=== PATIENT | male | born 1935 | race Caucasian/White ===

== ENCOUNTER 2022-05-24 14:54 | Inpatient (IN) | payer MEDICARE, SELFPAY ==
--- NOTE | ~2022-05-24 | CT_ITS ---
EXAMINATION: CT ABDOMEN AND PELVIS WITH CONTRAST CLINICAL INFORMATION: Diffuse abdominal pain COMPARISON: None available. TECHNIQUE: Multidetector volumetric images were obtained from the superior aspect of the liver through the pubic symphysis following administration 85 mL of Omnipaque 350 intravenous contrast. Sagittal and coronal reformatted images were obtained on the technologist's workstation. Oral contrast: No This CT examination was performed using dose optimization techniques as appropriate, variously including the following: *Automated exposure control *Adjustment of mA and/or kV according to patient size (this includes techniques or standardized protocols for targeted exams where dose is matched to indication/reason for exam; i.e. extremities or head) *Use of iterative reconstruction technique DLP: 1466 mGy-cm FINDINGS: LUNG BASES: The lung bases are grossly abnormal with peripheral groundglass changes and some honeycombing suggestive of interstitial lung disease. No pleural effusions. Extensive coronary calcification is present. Heart size is normal. Left hemidiaphragm is mildly elevated LIVER, GALLBLADDER, AND BILIARY TREE: The liver is normal in size, shape, and attenuation. No focal hepatic lesion or biliary ductal dilatation is present. The gallbladder is unremarkable with no evidence of radiopaque gallstones, gallbladder wall thickening, or obvious pericholecystic inflammatory changes. PANCREAS: Unremarkable. SPLEEN: Unremarkable. ADRENAL GLANDS: Unremarkable. KIDNEYS AND URETERS: The kidneys are normal in size, shape, and attenuation. A benign bilateral Bosniak class I renal cysts are present which need no additional imaging or follow-up. No solid renal masses. No hydronephrosis, hydroureter, or calculi seen. No perinephric stranding. BLADDER: A 1 cm stone is present posteriorly in the bladder which measures 1100 Hounsfield units there is marked impression of the bladder base by the enlarged prostate (see below). GASTROINTESTINAL TRACT: A small hiatal hernia is present. The small and large bowel are unremarkable. The appendix is unremarkable. ABDOMINAL WALL: Small bilateral inguinal hernias present containing only fat. No other hernias are seen. LYMPH NODES: No retroperitoneal lymphadenopathy. VASCULAR: Marked calcific atherosclerotic change present in the aorta and iliofemoral vessels without aneurysms PELVIC VISCERA: The prostate is massive in size measuring 7.1 x 8.1 x 9.3 cm for a volume of approximately 300 mL. OSSEOUS STRUCTURES: Marked degenerative changes are present throughout the spine. No bony destructive lesions. CT/CT abdomen pelvis w IV con IMPRESSION: 1. A cause for the patient's diffuse abdominal pain has not been found. 2. Markedly enlarged prostate with a volume of approximately 300 mL. 3. 1 cm stone in the bladder. 4. Incidental note made of probable interstitial lung disease at the lung bases, extensive coronary calcifications, small hiatal hernia, small bilateral inguinal hernias containing only fat and marked degenerative changes in the spine. Fleischner guidelines were followed.
--- NOTE | ~2022-05-24 | XR_ITS ---
EXAMINATION: XR CHEST CLINICAL INFORMATION: Question pneumonia. Weakness. COMPARISON: 01/12/2012 TECHNIQUE: AP portable view of the chest was obtained. FINDINGS: There is diffuse bilateral interstitial and airspace disease with some regions of interstitial lung disease appearing to be chronic however, there does appear to be some superimposed interstitial and airspace disease which is acute. No pneumothorax or significant pleural effusion. Heart normal size. No evidence of definite airspace edema. XR/XR chest 1V IMPRESSION: Interstitial and airspace disease some of which appears to be chronic however, there does appear to be some superimposed disease present as well.
--- NOTE | ~2022-05-24 | CT_ITS ---
EXAMINATION: CT HEAD WITHOUT CONTRAST CLINICAL INFORMATION: Dizziness. COMPARISON: None. TECHNIQUE: Contiguous axial imaging was performed from the skull base to vertex without intravenous administration of contrast. This CT examination was performed using dose optimization techniques as appropriate, variously including the following: *Automated exposure control *Adjustment of mA and/or kV according to patient size (this includes techniques or standardized protocols for targeted exams where dose is matched to indication/reason for exam; i.e. extremities or head) *Use of iterative reconstruction technique DLP: 2199 mGy-cm. FINDINGS: There is no intracranial hemorrhage, extra-axial collection, mass effect, or territorial infarction. There is mild hypoattenuation in the white matter likely representing chronic microangiopathy. The ventricles are normal in size without hydrocephalus. Right-sided mastoidectomy changes are noted with mild soft tissue thickening the mastoidectomy bowl. Small amount of middle ear opacification is also noted on the right. CT/CT head/brain wo IV con IMPRESSION: No acute intracranial abnormality.
--- NOTE | 2022-05-24 15:13 | ED_ITS ---
HPI - Abdominal Pain General Chief Complaint: Abdominal Pain <SHEA Ayon - Last Filed: 05/24/22 15:17> Stated Complaint: Abd pain/Not eating or sleeping/Weakness <SHEA Ayon - Last Filed: 05/24/22 15:17> Time Seen by Provider: 05/24/22 19:06 <SHEA Ayon - Last Filed: 05/24/22 15:17> Source: patient and family (Son) <Kendra Mcduffie MD - Last Filed: 05/24/22 22:38> Mode of arrival: ambulatory <Kendra Mcduffie MD - Last Filed: 05/24/22 22:38> History of Present Illness HPI narrative: 87-year-old male not on any prescription medications is brought in with his son from home where he lives by himself and the son states that he called his father on Monday and at that time he had reported that he was feeling weak and then the patient himself states that he began having abdominal discomfort 2 days ago without fever, chills, nausea, vomiting, he denies any intra-abdominal surgeries and denies any diarrhea or constipation. Patient does report he has had difficulty urinating. The son who is at bedside states that his father is usually able to walk around without difficulty using his walker but states he can not even get out of his chair at this point . <Kendra Mcduffie MD - Last Filed: 05/24/22 22:38> Related Data Allergies/Adverse Reactions: Allergies Allergy/AdvReac Type Severity Reaction Status Date / Time No Known Allergies Allergy Mild NONE Verified 05/24/22 15:15 <SHEA Ayon - Last Filed: 05/24/22 15:17> Review of Systems Review of Systems Pertinent positives and negatives as stated in HPI <Kendra Mcduffie MD - Last Filed: 05/24/22 22:38> PMFSH Past Medical History Source: nursing notes reviewed <Kendra Mcduffie MD - Last Filed: 05/24/22 22:38> Social History Social History: Social History Smoked in Last 30 Days: No Use of substances other than those prescribed or required for medical reasons: No Advance Directives: No Advance Directives Information Provided: No <SHEA Ayon - Last Filed: 05/24/22 15:17> Physical Exam ED Vital Signs: Vital Signs - 24 hr 05/24/22 15:16 05/24/22 18:45 05/24/22 21:04 Temperature 96 F L 96 F L 97.1 F Pulse Rate 69 67 62 Respiratory Rate 19 20 16 Blood Pressure 137/49 L 165/82 H 159/67 H Pulse Oximetry 98 99 98 Oxygen Delivery Method Room Air Room Air BMI result Body Mass Index 30.4 <SHEA Ayon - Last Filed: 05/24/22 15:17> Vital Signs - 24 hr 05/24/22 15:16 05/24/22 18:45 05/24/22 21:04 Temperature 96 F L 96 F L 97.1 F Pulse Rate 69 67 62 Respiratory Rate 19 20 16 Blood Pressure 137/49 L 165/82 H 159/67 H Pulse Oximetry 98 99 98 Oxygen Delivery Method Room Air Room Air BMI result Body Mass Index 30.4 VITAL SIGNS: Reviewed. GENERAL: Well developed, well nourished, in no acute distress. HEAD: Normocephalic/atraumatic EYES: PERRLA, EOMI EARS: Ext canals without abnormality NOSE: Nares patent bilateral OROPHARYNX: no oral lesions noted, posterior pharynx clear NECK: Supple, no adenopathy LUNGS: Bibasilar rales without tachypnea, no crackles. SpO2<99> CARDIOVASCULAR: Regular rate and rhythm without noted murmurs, no JVD or mild bilateral lower extremity ankle edema ABDOMEN: Soft, mid abdominal discomfort on palpation, non-distended with hypoactive bowel sounds. MUSCULOSKELETAL: No tenderness, deformities, or effusions noted on gross inspection. EXTREMITIES: No cyanosis, clubbing or edema. SKIN: Inspection of the skin reveals no rashes NEUROLOGIC: Alert and oriented x 4. Strength and sensation to light touch were grossly intact x 4. <Kendra Mcduffie MD - Last Filed: 05/24/22 22:38> Course Course Course Narrative: This is an RME: Additional HPI, ROS, PE not included below will be deferred to primary provider. 87-year-old male presents with complaints of diffuse abdominal pain, fatigue, malaise, myalgias, lightheadedness since this weekend, abdominal pain worsened since yesterday. Is accompanied by son however, patient lives at home by himself. No sick contacts. Denies chest pain, shortness of breath, vision changes, dizziness, weakness, and recent falls. Physical exam global weakness, diffuse abdominal discomfort. Vital signs stable. Patient well appearing. Plan labs, urine, imaging. <SHEA Ayon - Last Filed: 05/24/22 15:17> Medical Decision Making Medical Decision Making [facility] Narrative: 2023: 87-year-old male with history and clinical presentation after review of investigations I suspect patient may have urinary retention with secondary infection. Review of all investigations my interpretation is as patient has acute urinary retention with significant UTI and will receive Cotton catheter/antibiotics/fluids and be admitted. <Kendra Mcduffie MD - Last Filed: 05/24/22 22:38> Differential Diagnosis Please see the discussion above <Kendra Mcduffie MD - Last Filed: 05/24/22 22:38> Consult Healthcare Provider [id number]: I discussed case with inpatient hospitalist who accepts admission. <Kendra Mcduffie MD - Last Filed: 05/24/22 22:38> Lab Data Please see the discussion above <Kendra Mcduffie MD - Last Filed: 05/24/22 22:38> Result Diagrams: 05/24/22 16:25 05/24/22 16:25 <SHEA Ayon - Last Filed: 05/24/22 15:17> Labs: Lab Results 05/24/22 05/24/22 05/24/22 Range/Units 16:25 16:25 16:25 WBC 18.1 H (4.8-10.8) X10*3/uL RBC 5.03 (4.60-5.80) X10*6/uL Hgb 14.2 (14.0-18.0) g/dl Hct 43.4 (42.0-52.0) % MCV 86.3 (80.0-98.0) fL MCH 28.2 (27.0-33.0) pg MCHC 32.7 (31.0-36.0) g/dl RDW 14.6 (11.0-16.0) % Plt Count 325 (160-400) X10*3/uL MPV 10.1 (9.4-12.4) fL Immature Gran % (Auto) 0.3 (0.0-0.4) % Neut % (Auto) 89.0 H (45-73) % Lymph % (Auto) 4.0 L (20-40) % Blanco % (Auto) 6.6 (2-11) % Eos % (Auto) 0.0 (0-4) % Baso % (Auto) 0.1 (0-2) % Lymph # (Auto) 0.7 L (1.2-4.9) X10*3/uL [place] # (Auto) 1.2 (0.1-1.2) X10*3/uL Eos # (Auto) 0.0 (0.0-0.4) X10*3/uL Baso # (Auto) 0.0 (0.0-0.2) X10*3/uL Abs Immat Gran (auto) 0.05 H (0.00-0.03) X10*3/uL Absolute Neuts (auto) 16.2 H (2.0-8.3) x10*3/uL Absolute Nucleated RBC 0.000 (0.0-0.012) X10*3/uL Nucleated RBC % (auto) 0.0 (0.0-0.2) /100WBC Sodium 142 (135-145) mmol/L Potassium 4.9 (3.3-5.1) mmol/L Chloride 107 (96-108) mmol/L Carbon Dioxide 23 (22-29) mmol/L Anion Gap 17 (12-20) BUN 17 H (9-16) mg/dL Creatinine 0.90 (0.5-1.4) mg/dL Estim Creat Clear Calc 79.6 Estimated GFR > 60 Random Glucose 121 H (60-115) mg/dL Lactic Acid (0.5-2.0) mmol/L Calcium 9.9 (8.4-10.2) mg/dL Magnesium 1.9 (1.6-2.6) mg/dL Total Bilirubin 0.5 (0.0-1.0) mg/dL AST 38 H (5-37) U/L ALT 32 (0-40) U/L Alkaline Phosphatase 153 H (39-117) U/L B-Natriuretic Peptide Total Protein 6.9 (6.5-8.0) g/dL Albumin 3.8 (3.5-5.0) g/dL Lipase 18 (8-78) U/L Urine Color Urine Appearance Urine pH (5.0-9.0) Ur Specific [place] (1.005-1.025) Urine Protein (Neg-Trace) mg/dL Urine Glucose (UA) (Negative) mg/dL Urine Ketones (Negative) mg/dL Urine Blood (Negative) Urine Nitrite (Negative) Ur Leukocyte Esterase (Negative) Urine RBC (0-2) /HPF Urine WBC (0-5) /HPF Ur Squamous Epith Cells (0-2) /HPF Urine Bacteria (None Seen) Hyaline Casts (0-2) /LPF COVID-19 ([facility]) Negative (Negative) COVID-19 Clin Com See Note 05/24/22 05/24/22 05/24/22 Range/Units 16:25 20:44 21:29 WBC (4.8-10.8) X10*3/uL RBC (4.60-5.80) X10*6/uL Hgb (14.0-18.0) g/dl Hct (42.0-52.0) % MCV (80.0-98.0) fL MCH (27.0-33.0) pg MCHC (31.0-36.0) g/dl RDW (11.0-16.0) % Plt Count (160-400) X10*3/uL MPV (9.4-12.4) fL Immature Gran % (Auto) (0.0-0.4) % Neut % (Auto) (45-73) % Lymph % (Auto) (20-40) % Blanco % (Auto) (2-11) % Eos % (Auto) (0-4) % Baso % (Auto) (0-2) % Lymph # (Auto) (1.2-4.9) X10*3/uL [place] # (Auto) (0.1-1.2) X10*3/uL Eos # (Auto) (0.0-0.4) X10*3/uL Baso # (Auto) (0.0-0.2) X10*3/uL Abs Immat Gran (auto) (0.00-0.03) X10*3/uL Absolute Neuts (auto) (2.0-8.3) x10*3/uL Absolute Nucleated RBC (0.0-0.012) X10*3/uL Nucleated RBC % (auto) (0.0-0.2) /100WBC Sodium (135-145) mmol/L Potassium (3.3-5.1) mmol/L Chloride (96-108) mmol/L Carbon Dioxide (22-29) mmol/L Anion Gap (12-20) BUN (9-16) mg/dL Creatinine (0.5-1.4) mg/dL Estim Creat Clear Calc Estimated GFR Random Glucose (60-115) mg/dL Lactic Acid 2.3 H* (0.5-2.0) mmol/L Calcium (8.4-10.2) mg/dL Magnesium (1.6-2.6) mg/dL Total Bilirubin (0.0-1.0) mg/dL AST (5-37) U/L ALT (0-40) U/L Alkaline Phosphatase (39-117) U/L B-Natriuretic Peptide Cancelled 86 Total Protein (6.5-8.0) g/dL Albumin (3.5-5.0) g/dL Lipase (8-78) U/L Urine Color Urine Appearance Urine pH (5.0-9.0) Ur Specific [place] (1.005-1.025) Urine Protein (Neg-Trace) mg/dL Urine Glucose (UA) (Negative) mg/dL Urine Ketones (Negative) mg/dL Urine Blood (Negative) Urine Nitrite (Negative) Ur Leukocyte Esterase (Negative) Urine RBC (0-2) /HPF Urine WBC (0-5) /HPF Ur Squamous Epith Cells (0-2) /HPF Urine Bacteria (None Seen) Hyaline Casts (0-2) /LPF COVID-19 ([facility]) (Negative) COVID-19 Clin Com 05/24/22 Range/Units 21:34 WBC (4.8-10.8) X10*3/uL RBC (4.60-5.80) X10*6/uL Hgb (14.0-18.0) g/dl Hct (42.0-52.0) % MCV (80.0-98.0) fL MCH (27.0-33.0) pg MCHC (31.0-36.0) g/dl RDW (11.0-16.0) % Plt Count (160-400) X10*3/uL MPV (9.4-12.4) fL Immature Gran % (Auto) (0.0-0.4) % Neut % (Auto) (45-73) % Lymph % (Auto) (20-40) % Blanco % (Auto) (2-11) % Eos % (Auto) (0-4) % Baso % (Auto) (0-2) % Lymph # (Auto) (1.2-4.9) X10*3/uL [place] # (Auto) (0.1-1.2) X10*3/uL Eos # (Auto) (0.0-0.4) X10*3/uL Baso # (Auto) (0.0-0.2) X10*3/uL Abs Immat Gran (auto) (0.00-0.03) X10*3/uL Absolute Neuts (auto) (2.0-8.3) x10*3/uL Absolute Nucleated RBC (0.0-0.012) X10*3/uL Nucleated RBC % (auto) (0.0-0.2) /100WBC Sodium (135-145) mmol/L Potassium (3.3-5.1) mmol/L Chloride (96-108) mmol/L Carbon Dioxide (22-29) mmol/L Anion Gap (12-20) BUN (9-16) mg/dL Creatinine (0.5-1.4) mg/dL Estim Creat Clear Calc Estimated GFR Random Glucose (60-115) mg/dL Lactic Acid (0.5-2.0) mmol/L Calcium (8.4-10.2) mg/dL Magnesium (1.6-2.6) mg/dL Total Bilirubin (0.0-1.0) mg/dL AST (5-37) U/L ALT (0-40) U/L Alkaline Phosphatase (39-117) U/L B-Natriuretic Peptide Total Protein (6.5-8.0) g/dL Albumin (3.5-5.0) g/dL Lipase (8-78) U/L Urine Color RED Urine Appearance Turbid Urine pH 5.5 (5.0-9.0) Ur Specific [place] 1.020 (1.005-1.025) Urine Protein 100 (2+) H (Neg-Trace) mg/dL Urine Glucose (UA) Negative (Negative) mg/dL Urine Ketones Negative (Negative) mg/dL Urine Blood Large (3+) H (Negative) Urine Nitrite Positive H (Negative) Ur Leukocyte Esterase Moderate (2+) H (Negative) Urine RBC >20 H (0-2) /HPF Urine WBC >50 H (0-5) /HPF Ur Squamous Epith Cells 0-2 (0-2) /HPF Urine Bacteria Trace (None Seen) Hyaline Casts 0-2 (0-2) /LPF COVID-19 ([facility]) (Negative) COVID-19 Clin Com <SHEA Ayon - Last Filed: 05/24/22 15:17> Lab Results 05/24/22 05/24/22 05/24/22 Range/Units 16:25 16:25 16:25 WBC 18.1 H (4.8-10.8) X10*3/uL RBC 5.03 (4.60-5.80) X10*6/uL Hgb 14.2 (14.0-18.0) g/dl Hct 43.4 (42.0-52.0) % MCV 86.3 (80.0-98.0) fL MCH 28.2 (27.0-33.0) pg MCHC 32.7 (31.0-36.0) g/dl RDW 14.6 (11.0-16.0) % Plt Count 325 (160-400) X10*3/uL MPV 10.1 (9.4-12.4) fL Immature Gran % (Auto) 0.3 (0.0-0.4) % Neut % (Auto) 89.0 H (45-73) % Lymph % (Auto) 4.0 L (20-40) % Blanco % (Auto) 6.6 (2-11) % Eos % (Auto) 0.0 (0-4) % Baso % (Auto) 0.1 (0-2) % Lymph # (Auto) 0.7 L (1.2-4.9) X10*3/uL Blanco # (Auto) 1.2 (0.1-1.2) X10*3/uL Eos # (Auto) 0.0 (0.0-0.4) X10*3/uL Baso # (Auto) 0.0 (0.0-0.2) X10*3/uL Abs Immat Gran (auto) 0.05 H (0.00-0.03) X10*3/uL Absolute Neuts (auto) 16.2 H (2.0-8.3) x10*3/uL Absolute Nucleated RBC 0.000 (0.0-0.012) X10*3/uL Nucleated RBC % (auto) 0.0 (0.0-0.2) /100WBC Sodium 142 (135-145) mmol/L Potassium 4.9 (3.3-5.1) mmol/L Chloride 107 (96-108) mmol/L Carbon Dioxide 23 (22-29) mmol/L Anion Gap 17 (12-20) BUN 17 H (9-16) mg/dL Creatinine 0.90 (0.5-1.4) mg/dL Estim Creat Clear Calc 79.6 Estimated GFR > 60 Random Glucose 121 H (60-115) mg/dL Lactic Acid (0.5-2.0) mmol/L Calcium 9.9 (8.4-10.2) mg/dL Magnesium 1.9 (1.6-2.6) mg/dL Total Bilirubin 0.5 (0.0-1.0) mg/dL AST 38 H (5-37) U/L ALT 32 (0-40) U/L Alkaline Phosphatase 153 H (39-117) U/L B-Natriuretic Peptide Total Protein 6.9 (6.5-8.0) g/dL Albumin 3.8 (3.5-5.0) g/dL Lipase 18 (8-78) U/L Urine Color Urine Appearance Urine pH (5.0-9.0) Ur Specific [place] (1.005-1.025) Urine Protein (Neg-Trace) mg/dL Urine Glucose (UA) (Negative) mg/dL Urine Ketones (Negative) mg/dL Urine Blood (Negative) Urine Nitrite (Negative) Ur Leukocyte Esterase (Negative) Urine RBC (0-2) /HPF Urine WBC (0-5) /HPF Ur Squamous Epith Cells (0-2) /HPF Urine Bacteria (None Seen) Hyaline Casts (0-2) /LPF COVID-19 ([facility]) Negative (Negative) COVID-19 Clin Com See Note 05/24/22 05/24/22 05/24/22 Range/Units 16:25 20:44 21:29 WBC (4.8-10.8) X10*3/uL RBC (4.60-5.80) X10*6/uL Hgb (14.0-18.0) g/dl Hct (42.0-52.0) % MCV (80.0-98.0) fL MCH (27.0-33.0) pg MCHC (31.0-36.0) g/dl RDW (11.0-16.0) % Plt Count (160-400) X10*3/uL MPV (9.4-12.4) fL Immature Gran % (Auto) (0.0-0.4) % Neut % (Auto) (45-73) % Lymph % (Auto) (20-40) % [place]anco % (Auto) (2-11) % Eos % (Auto) (0-4) % Baso % (Auto) (0-2) % Lymph # (Auto) (1.2-4.9) X10*3/uL [place] # (Auto) (0.1-1.2) X10*3/uL Eos # (Auto) (0.0-0.4) X10*3/uL Baso # (Auto) (0.0-0.2) X10*3/uL Abs Immat Gran (auto) (0.00-0.03) X10*3/uL Absolute Neuts (auto) (2.0-8.3) x10*3/uL Absolute Nucleated RBC (0.0-0.012) X10*3/uL Nucleated RBC % (auto) (0.0-0.2) /100WBC Sodium (135-145) mmol/L Potassium (3.3-5.1) mmol/L Chloride (96-108) mmol/L Carbon Dioxide (22-29) mmol/L Anion Gap (12-20) BUN (9-16) mg/dL Creatinine (0.5-1.4) mg/dL Estim Creat Clear Calc Estimated GFR Random Glucose (60-115) mg/dL Lactic Acid 2.3 H* (0.5-2.0) mmol/L Calcium (8.4-10.2) mg/dL Magnesium (1.6-2.6) mg/dL Total Bilirubin (0.0-1.0) mg/dL AST (5-37) U/L ALT (0-40) U/L Alkaline Phosphatase (39-117) U/L B-Natriuretic Peptide Cancelled 86 Total Protein (6.5-8.0) g/dL Albumin (3.5-5.0) g/dL Lipase (8-78) U/L Urine Color Urine Appearance Urine pH (5.0-9.0) Ur Specific [place] (1.005-1.025) Urine Protein (Neg-Trace) mg/dL Urine Glucose (UA) (Negative) mg/dL Urine Ketones (Negative) mg/dL Urine Blood (Negative) Urine Nitrite (Negative) Ur Leukocyte Esterase (Negative) Urine RBC (0-2) /HPF Urine WBC (0-5) /HPF Ur Squamous Epith Cells (0-2) /HPF Urine Bacteria (None Seen) Hyaline Casts (0-2) /LPF COVID-19 ([facility]) (Negative) COVID-19 Clin Com 05/24/22 Range/Units 21:34 WBC (4.8-10.8) X10*3/uL RBC (4.60-5.80) X10*6/uL Hgb (14.0-18.0) g/dl Hct (42.0-52.0) % MCV (80.0-98.0) fL MCH (27.0-33.0) pg MCHC (31.0-36.0) g/dl RDW (11.0-16.0) % Plt Count (160-400) X10*3/uL MPV (9.4-12.4) fL Immature Gran % (Auto) (0.0-0.4) % Neut % (Auto) (45-73) % Lymph % (Auto) (20-40) % [place] % (Auto) (2-11) % Eos % (Auto) (0-4) % Baso % (Auto) (0-2) % Lymph # (Auto) (1.2-4.9) X10*3/uL [place] # (Auto) (0.1-1.2) X10*3/uL Eos # (Auto) (0.0-0.4) X10*3/uL Baso # (Auto) (0.0-0.2) X10*3/uL Abs Immat Gran (auto) (0.00-0.03) X10*3/uL Absolute Neuts (auto) (2.0-8.3) x10*3/uL Absolute Nucleated RBC (0.0-0.012) X10*3/uL Nucleated RBC % (auto) (0.0-0.2) /100WBC Sodium (135-145) mmol/L Potassium (3.3-5.1) mmol/L Chloride (96-108) mmol/L Carbon Dioxide (22-29) mmol/L Anion Gap (12-20) BUN (9-16) mg/dL Creatinine (0.5-1.4) mg/dL Estim Creat Clear Calc Estimated GFR Random Glucose (60-115) mg/dL Lactic Acid (0.5-2.0) mmol/L Calcium (8.4-10.2) mg/dL Magnesium (1.6-2.6) mg/dL Total Bilirubin (0.0-1.0) mg/dL AST (5-37) U/L ALT (0-40) U/L Alkaline Phosphatase (39-117) U/L B-Natriuretic Peptide Total Protein (6.5-8.0) g/dL Albumin (3.5-5.0) g/dL Lipase (8-78) U/L Urine Color RED Urine Appearance Turbid Urine pH 5.5 (5.0-9.0) Ur Specific [place] 1.020 (1.005-1.025) Urine Protein 100 (2+) H (Neg-Trace) mg/dL Urine Glucose (UA) Negative (Negative) mg/dL Urine Ketones Negative (Negative) mg/dL Urine Blood Large (3+) H (Negative) Urine Nitrite Positive H (Negative) Ur Leukocyte Esterase Moderate (2+) H (Negative) Urine RBC >20 H (0-2) /HPF Urine WBC >50 H (0-5) /HPF Ur Squamous Epith Cells 0-2 (0-2) /HPF Urine Bacteria Trace (None Seen) Hyaline Casts 0-2 (0-2) /LPF COVID-19 ([facility]) (Negative) COVID-19 Clin Com <Kendra Mcduffie MD - Last Filed: 05/24/22 22:38> Radiology Impression Radiologist Impression: My interpretation is in agreement with radiology's impression of the imaging studies. <Kendra Mcduffie MD - Last Filed: 05/24/22 22:38> External Record Review External record reviewed: Outpatient record and Prior outpatient labs <Kendra Mcduffie MD - Last Filed: 05/24/22 22:38> Medications Administered Discontinued Medications Generic Name Dose Route Start Last Admin Trade Name Freq PRN Reason Stop Dose Admin Ceftriaxone Sodium 2 gm/ 50 mls @ 100 mls/hr 05/24/22 20:26 05/24/22 21:44 Sodium Chloride IV 05/24/22 20:55 100 mls/hr ONCE ONE Administration Iohexol 85 ml 05/24/22 19:42 05/24/22 19:43 Iohexol 350 Mg/Ml 100 Ml Infus..Btl IV 05/24/22 19:43 85 ml ONCE ONE Administration <SHEA Ayon - Last Filed: 05/24/22 15:17> Medications Administered Discontinued Medications Generic Name Dose Route Start Last Admin Trade Name Freq PRN Reason Stop Dose Admin Ceftriaxone Sodium 2 gm/ 50 mls @ 100 mls/hr 05/24/22 20:26 05/24/22 21:44 Sodium Chloride IV 05/24/22 20:55 100 mls/hr ONCE ONE Administration Iohexol 85 ml 05/24/22 19:42 05/24/22 19:43 Iohexol 350 Mg/Ml 100 Ml Infus..Btl IV 05/24/22 19:43 85 ml ONCE ONE Administration <Kendra Mcduffie MD - Last Filed: 05/24/22 22:38> Discharge Plan Discharge Clinical Impression: Acute urinary retention, Acute UTI, Sepsis, Bladder stone <SHEA Ayon - Last Filed: 05/24/22 15:17> Patient Disposition: Admitted As Inpatient <SHEA Ayon - Last Filed: 05/24/22 15:17>
[2022-05-24 15:16] VITALS: BP 137/49; PULSE 69; RESP 19; TEMP 35.5; O2SAT 98; BMI 30.4
[2022-05-24 16:31] LABS: MANUAL DIFF FLAG NO
[2022-05-24 16:33] LABS: Basophils Percent Auto 0.1 % (0-2); Hematocrit 43.4 % (42.0-52.0); Hemoglobin 14.2 g/dl (14.0-18.0); Imm Gran Abs Auto 0.05 X10*3/uL (0.00-0.03); Imm Gran Pct Auto 0.3 % (0.0-0.4); Lymphocytes Absolute Auto 0.7 X10*3/uL (1.2-4.9); Mean Corpuscular HGB Conc 32.7 g/dl (31.0-36.0); Mean Corpuscular Hemoglobin 28.2 pg (27.0-33.0); Mean Corpuscular Volume 86.3 fL (80.0-98.0); Mean Platelet Volume 10.1 fL (9.4-12.4); Monocytes Absolute Auto 1.2 X10*3/uL (0.1-1.2); Monocytes Percent Auto 6.6 % (2-11); Neutrophils Absolute Auto 16.2 x10*3/uL (2.0-8.3); Platelet Count 325 X10*3/uL (160-400); Red Blood Count 5.03 X10*6/uL (4.60-5.80); Red Cell Distribution Width 14.6 % (11.0-16.0); White Blood Count 18.1 X10*3/uL (4.8-10.8)
[2022-05-24 16:50] LABS: Alanine Aminotransferase 32 U/L (0-40); Albumin Level 3.8 g/dL (3.5-5.0); Alkaline Phosphatase 153 U/L (39-117); Anion Gap 17 (12-20); Aspartate Amino Transferase 38 U/L (5-37); Bilirubin Total 0.5 mg/dL (0.0-1.0); Blood Urea Nitrogen 17 mg/dL (9-16); Calcium 9.9 mg/dL (8.4-10.2); Carbon Dioxide 23 mmol/L (22-29); Chloride 107 mmol/L (96-108); Creatinine Clr Calc Pharmacy 79.6; Estimated Glomerular Filt Rate > 60; Glucose Random 121 mg/dL (60-115); Lipase 18 U/L (8-78); Magnesium 1.9 mg/dL (1.6-2.6); Potassium 4.9 mmol/L (3.3-5.1); Sodium 142 mmol/L (135-145); Total Protein 6.9 g/dL (6.5-8.0)
[2022-05-24 16:54] LABS: COVID-19 Test Negative (Negative); IDNOW Serial# 08D9AD1C
[2022-05-24 18:45] VITALS: BP 165/82; PULSE 67; RESP 20; TEMP 35.5; O2SAT 99
[2022-05-24] MEDS: iohexoL 350 MG/ML 100 ML INFUS..BTL 85 ML IV (19:43)
--- NOTE | 2022-05-24 20:46 | PC.NURSE ---
blood cultures attempted x 2 by PCT @20:45 . will call phlebotomy to come draw pt
[2022-05-24 21:04] VITALS: BP 159/67; PULSE 62; RESP 16; TEMP 36.2; O2SAT 98
[2022-05-24 21:15] LABS: Lactic Acid 2.3 mmol/L (0.5-2.0)
[2022-05-24] MEDS: cefTRIAXone sodium 2 GM in 0.9 % Sodium Chloride 50 ML IV (21:44)
--- NOTE | 2022-05-24 21:47 | PC.NURSE ---
blood cultures obtained and antibiotics started . Cotton catheter 16 fr inserted no issues. laila red blood drained from catheter approx 700cc. MD Mcduffie aware. pt has history of prostate issues. urine sent. pt resting comfortably on stretcher. will CTM
[2022-05-24 21:49] LABS: Appearance Urine Turbid; Color Urine RED; Glucose Urine UA Negative (Negative); Leukocyte Esterase Urine Moderate (2+) (Negative); Nitrite Urine Positive (Negative); PH 5.5 (5.0-9.0); UMIC TRIGGER UACC YES; Urine Blood Large (3+) (Negative); Urine Ketones Negative (Negative); Urine Protein 100 (2+) mg/dL (Neg-Trace)
[2022-05-24 21:58] LABS: B Type Natriuretic Peptide 86 pg/mL (<100)
[2022-05-24 22:05] LABS: Bacteria Urine Trace (None Seen); Hyaline Casts Urine 0-2 /LPF (0-2); RBC Urine >20 /HPF (0-2); Squamous Epithelial Cell Urine 0-2 /HPF (0-2); UACC Culture Trigger YES; WBC Urine >50 /HPF (0-5)
[2022-05-24 22:46] LABS: Reflex Lactate? Lactic Acid Added
--- NOTE | 2022-05-24 22:46 | P.HPHOSP_ITS ---
History of Present Illness Date of Service: 05/24/22 Chief Complaint: abd pain You 7-year-old male who denies any past medical history brought into the hospital by his son with complaints of increasing weakness, and abdominal pain for the past 2 days. Son reports that he noticed his father was increasingly weak, having difficulty ambulating worse from his baseline, states that he has been complaining of lower abdominal pain as well, no fever no chills, patient reports urinary retention as well as dysuria on urination. Denies any fever, no chest pain, no shortness of breath, no lower extremity edema. Vitals on arrival stable Labs are significant for WBC count of 13.2, lactic acid of 2.3, AST of 38, ALT of 32, alk-phos of 153, BNP of 86, UA positive for leukocyte esterase, nitrates, WBC Abdomen pelvic CT shows markedly enlarged prostate with a volume of approximately 300 mL in the bladder, 1 cm stone in the bladder, Patient started on IV antibiotics and will be admitted for further management Review of Systems Review of Systems: Yes all other systems are reviewed and are negative [facility] Medical History No pertinent past medical history Surgical History No pertinent past surgical history Social History Household Members: None Housing: House Do you presently have visiting nurse or other home services: No Patient Tobacco Use Status: Former Tobacco user Quit Date: 30 years ago Tobacco use type: Cigarette Smoked in Last 30 Days: No e-Cigarette/Vaping Use: Never Used Patient Interested in Nicotine Replacement: No Second Hand Smoke Exposure: No Use of substances other than those prescribed or required for medical reasons: No Currently Displaying Signs/Symptoms of Drug Intoxication Withdrawal: No Any prior treatment program specific to substance use: No Have you been hit, kicked, punched, or otherwise hurt by someone within the past year? If so, by whom?: No Do you feel safe in your current relationship?: No Current Relationship Is there a partner from a previous relationship who is making you feel unsafe now?: No Are you made to feel afraid or neglected: No Advance Directives: No Advance Directives Information Provided: No Do you have thoughts of harming others: None Do you have a plan to hurt others: No Plan Recently lost weight without trying: No Eating poorly because of decreased appetite: No Nutrition Risks: No Nutritional Risk Poor oral hygiene: No Meds Allergies Allergy/AdvReac Type Severity Reaction Status Date / Time No Known Allergies Allergy Mild NONE Verified 05/24/22 15:15 Active Medications: Current Medications Sodium Chloride (Ns) 500 mls @ 500 mls/hr IV .Q1H LENORA Stop: 05/24/22 23:14 Physical Exam Vital Signs and Narrative: Vital Signs: Last Vital Signs Temp 97.1 F 05/24/22 21:04 Pulse 62 05/24/22 21:04 Resp 16 05/24/22 21:04 BP 159/67 H 05/24/22 21:04 Pulse Ox 98 05/24/22 21:04 O2 Del Method Room Air 05/24/22 21:04 BMI result Body Mass Index 30.4 Const: General: cooperative and no acute distress Orientation/consciousn ess: patient oriented x3 Eyes: General: appearance normal, both eyes and all related structures Resp: Effort & Inspection: normal respiratory effort Auscultation: clear to auscultation bilaterally Cardio: Rate: regular rate Rhythm: regular rhythm GI: Other: Tender in the lower suprapubic region Palpation (GI): Soft to palpation Auscultation: normal bowel sounds Skin: General skin exam: no rashes or lesions noted Neuro: General: patient oriented x3 Cognition (Neuro): normal cognition Extrem: General: Yes normal to inspection and Yes no pedal edema Results Labs 05/24/22 16:25 05/24/22 16:25 Labs: Laboratory Results - last 24 hr 05/24/22 05/24/22 05/24/22 16:25 16:25 16:25 MCV 86.3 MCH 28.2 MCHC 32.7 RDW 14.6 Plt Count 325 MPV 10.1 Immature Gran % (Auto) 0.3 Neut % (Auto) 89.0 H Lymph % (Auto) 4.0 L [place] % (Auto) 6.6 Eos % (Auto) 0.0 Baso % (Auto) 0.1 Lymph # (Auto) 0.7 L [place] # (Auto) 1.2 Eos # (Auto) 0.0 Baso # (Auto) 0.0 Abs Immat Gran (auto) 0.05 H Absolute Neuts (auto) 16.2 H Absolute Nucleated RBC 0.000 Nucleated RBC % (auto) 0.0 Anion Gap 17 Estim Creat Clear Calc 79.6 Estimated GFR > 60 Random Glucose 121 H Lactic Acid Calcium 9.9 Magnesium 1.9 Total Bilirubin 0.5 AST 38 H ALT 32 Alkaline Phosphatase 153 H B-Natriuretic Peptide Total Protein 6.9 Albumin 3.8 Lipase 18 Urine Color Urine Appearance Urine pH Ur Specific [place] Urine Protein Urine Glucose (UA) Urine Ketones Urine Blood Urine Nitrite Ur Leukocyte Esterase Urine RBC Urine WBC Ur Squamous Epith Cells Urine Bacteria Hyaline Casts COVID-19 ([facility]SEA) Negative COVID-19 Clin Com See Note 05/24/22 05/24/22 05/24/22 16:25 20:44 21:29 MCV MCH MCHC RDW Plt Count MPV Immature Gran % (Auto) Neut % (Auto) Lymph % (Auto) [place] % (Auto) Eos % (Auto) Baso % (Auto) Lymph # (Auto) [place] # (Auto) Eos # (Auto) Baso # (Auto) Abs Immat Gran (auto) Absolute Neuts (auto) Absolute Nucleated RBC Nucleated RBC % (auto) Anion Gap Estim Creat Clear Calc Estimated GFR Random Glucose Lactic Acid 2.3 H* Calcium Magnesium Total Bilirubin AST ALT Alkaline Phosphatase B-Natriuretic Peptide Cancelled 86 Total Protein Albumin Lipase Urine Color Urine Appearance Urine pH Ur Specific [place] Urine Protein Urine Glucose (UA) Urine Ketones Urine Blood Urine Nitrite Ur Leukocyte Esterase Urine RBC Urine WBC Ur Squamous Epith Cells Urine Bacteria Hyaline Casts COVID-19 ([facility]) COVID-19 Clin Com 05/24/22 21:34 MCV MCH MCHC RDW Plt Count MPV Immature Gran % (Auto) Neut % (Auto) Lymph % (Auto) [place] % (Auto) Eos % (Auto) Baso % (Auto) Lymph # (Auto) [place] # (Auto) Eos # (Auto) Baso # (Auto) Abs Immat Gran (auto) Absolute Neuts (auto) Absolute Nucleated RBC Nucleated RBC % (auto) Anion Gap Estim Creat Clear Calc Estimated GFR Random Glucose Lactic Acid Calcium Magnesium Total Bilirubin AST ALT Alkaline Phosphatase B-Natriuretic Peptide Total Protein Albumin Lipase Urine Color RED Urine Appearance Turbid Urine pH 5.5 Ur Specific [place] 1.020 Urine Protein 100 (2+) H Urine Glucose (UA) Negative Urine Ketones Negative Urine Blood Large (3+) H Urine Nitrite Positive H Ur Leukocyte Esterase Moderate (2+) H Urine RBC >20 H Urine WBC >50 H Ur Squamous Epith Cells 0-2 Urine Bacteria Trace Hyaline Casts 0-2 COVID-19 ([facility]) COVID-19 Clin Com Imaging Radiologist's Impressions: Impressions Abdomen/Pelvis CT 05/24/22 19:58 IMPRESSION: 1. A cause for the patient's diffuse abdominal pain has not been found. 2. Markedly enlarged prostate with a volume of approximately 300 mL. 3. 1 cm stone in the bladder. 4. Incidental note made of probable interstitial lung disease at the lung bases, extensive coronary calcifications, small hiatal hernia, small bilateral inguinal hernias containing only fat and marked degenerative changes in the spine. Fleischner guidelines were followed. Head CT 05/24/22 19:58 IMPRESSION: No acute intracranial abnormality. Assessment and Plan (1) Sepsis: Status: Acute (2) Acute UTI: Status: Acute (3) Acute urinary retention: Status: Acute (4) Bladder stone: Status: Acute (5) Hematuria: Status: Acute Plan 87-year-old male who denies any past medical history presents to the hospital with increased weakness and abdominal pain found to have acute UTI # sepsis - secondary to UTI - abdominal CT showing enlarged prostate with no other abnormality to explain patient presentation - will treat with IV antibiotics - follow cultures # acute UTI - symptomatic - septic - will treat with IV antibiotics - follow cultures # acute urinary tension - likely secondary to post obstruction in the setting of enlarged prostate as seen on CT - status post Cotton catheter insertion - urology consulted # hematuria/bladder stone - patient has significant hematuria, - stable H&H - likely secondary to Cotton insertion - will place on IV fluids - urology consulted DVT prophylaxis: SCDs Given patient's sepsis needing IV antibiotics patient will require a min 2 nights inpatient hospital stay for further management and monitoring Time Spent With Patient Time: Total time managing care of this patient today ____ minutes. Quality Stroke Does the patient have a stroke diagnosis?: No VTE Prior VTE?: No VTE Risk Level:: Medical - moderate - high VTE Device Contraindication: N/A - Device Ordered VTE Drug Contraindication: Treatment Not Indicated
[2022-05-24 23:14] VITALS: BP 149/58; PULSE 64; RESP 15; TEMP 35.1; O2SAT 97
--- NOTE | 2022-05-24 23:21 | MHC.EDTECH ---
PT repositioned in bed and bed pad placed under Pt. Pt has rednesss on bottom Rn NAT made aware. Barrier cream applied.
[2022-05-24] MEDS: Tamsulosin HCL 0.4 MG CAPSULE PO (23:30)
[2022-05-24] MEDS: Acetaminophen 325 MG TABLET 650 MG PO (23:30)
[2022-05-24] MEDS: oxyCODONE HCl Immed Release 5 MG TABLET PO (23:30)
[2022-05-24] MEDS: 0.9 % Sodium Chloride 500 ML IV (23:30)
[2022-05-24 23:43] LABS: MANUAL DIFF FLAG NO
[2022-05-24 23:44] LABS: Basophils Percent Auto 0.1 % (0-2); Hemoglobin 13.6 g/dl (14.0-18.0); Imm Gran Abs Auto 0.04 X10*3/uL (0.00-0.03); Imm Gran Pct Auto 0.3 % (0.0-0.4); Lymphocytes Absolute Auto 0.9 X10*3/uL (1.2-4.9); Lymphocytes Percent Auto 6.3 % (20-40); Mean Corpuscular HGB Conc 32.4 g/dl (31.0-36.0); Mean Corpuscular Hemoglobin 27.9 pg (27.0-33.0); Mean Corpuscular Volume 86.2 fL (80.0-98.0); Mean Platelet Volume 9.8 fL (9.4-12.4); Monocytes Absolute Auto 1.3 X10*3/uL (0.1-1.2); Monocytes Percent Auto 9.4 % (2-11); Neutrophils Absolute Auto 11.9 x10*3/uL (2.0-8.3); Neutrophils Percent Auto 83.9 % (45-73); Platelet Count 281 X10*3/uL (160-400); Red Blood Count 4.87 X10*6/uL (4.60-5.80); Red Cell Distribution Width 14.6 % (11.0-16.0); White Blood Count 14.2 X10*3/uL (4.8-10.8)
--- NOTE | 2022-05-24 23:45 | PC.NURSE ---
report called to [facility] med surg
[2022-05-25] VITALS (10 sets, daily range): BP systolic 127–162; BP diastolic 59–83; PULSE 67–81; RESP 16–20; TEMP 33.9–36.9; O2SAT 93–97; BMI 30.4
[2022-05-25 00:02] LABS: ~Lactic Acid-LAB USE ONLY 1.5 mmol/L (0.5-2.0)
--- NOTE | 2022-05-25 04:37 | PC.NURSE ---
pt came up with bloody catheter and hypothermia of 93.1F but no symptomatic pt feels warm. provide hot tea, warm blankets. tiger texted to slab conditioner supervisor to bring bear hug, hour later 93.9 F. little bit of improvement. slab conditioner supervisor irrigated catheter, emptied 300 mL of bloody f/c. continuously monitor temp. and urine out put.
[2022-05-25 06:30] LABS: Hemoglobin 13.2 g/dl (14.0-18.0); Mean Corpuscular Hemoglobin 28.6 pg (27.0-33.0); Mean Corpuscular Volume 86.8 fL (80.0-98.0); Mean Platelet Volume 10.7 fL (9.4-12.4); Platelet Count 289 X10*3/uL (160-400); Red Blood Count 4.61 X10*6/uL (4.60-5.80); Red Cell Distribution Width 14.4 % (11.0-16.0); White Blood Count 11.4 X10*3/uL (4.8-10.8)
--- NOTE | 2022-05-25 06:55 | PC.NURSE ---
after bear hug hot blanket applied to above the chest. temp. improved 93.1F to 95.5 F. will monitor skin and temp.
[2022-05-25 06:58] LABS: Anion Gap 16 (12-20); Blood Urea Nitrogen 16 mg/dL (9-16); Calcium 9.3 mg/dL (8.4-10.2); Carbon Dioxide 22 mmol/L (22-29); Chloride 109 mmol/L (96-108); Creatinine Clr Calc Pharmacy 90.8; Estimated Glomerular Filt Rate > 60; Glucose Random 77 mg/dL (60-115); Sodium 142 mmol/L (135-145)
--- NOTE | 2022-05-25 08:43 | PHA.MEDREC ---
Pharmacy Consult ? Medication Reconciliation Pharmacy has completed the medication reconciliation. Patient said he does not take any medications at home
[2022-05-25] MEDS: 0.9 % Sodium Chloride Flush 3 ML SYRINGE IVFLUSH ×2 (09:07→18:17)
[2022-05-25] MEDS: Lactated Ringers 1,000 ML 100 ML IVCONT ×2 (09:07→18:17)
[2022-05-25] MEDS: ondansetron HCL 4 MG/2 ML VIAL IVPUSH (10:24)
--- NOTE | 2022-05-25 11:48 | HO.PM.IMPN ---
Subjective Subjective Date of Service: 05/25/22 Interval History: Complaining of upset stomach, mild nausea, no vomiting, lower abdominal pain feeling hot has Lindsay Hugger due to her hypothermia, Cotton catheter with hematuria and few clots, denies fever, no chills, no headache, no dizziness, no shortness of breath. Review of Systems Review of Systems: Yes all other systems are reviewed and are negative Physical Exam Vital Signs: Vital Signs: Last Vital Signs Temp 96.6 F L 05/25/22 09:58 Pulse 73 05/25/22 07:28 Resp 18 05/25/22 07:28 BP 133/63 05/25/22 07:28 Pulse Ox 93 05/25/22 07:28 O2 Del Method Room Air 05/25/22 07:28 BMI result Body Mass Index 30.4 Const: Other: General awake alert x3, resting comfortably in no acute distress. Neck supple no JVD. CVS regular rate rhythm, Respiratory lungs clear to auscultation, no respiratory distress, no wheeze, no rhonchi. Gastrointestinal abdomen soft, mild lower abdomen tenderness to palpation, bowel sounds audible, no guarding , no rigidity. Extremities no edema. Neuro moving all 4 extremity, speech clear. Skin no rash Psych appropriate affect Cotton catheter with bright red blood Objective Data Active Medications Acetaminophen (Acetaminophen 325 Mg Tablet) 650 mg PO Q6H PRN PRN Reason: Pain, Mild (Pain Scale 1-3) Last Admin: 05/24/22 23:30 Dose: 650 mg Documented By: CHICO Docusate Sodium (Docusate Sodium 100 Mg Capsule) 100 mg PO DAILY PRN PRN Reason: Constipation Ceftriaxone Sodium 1 gm/ (Sodium Chloride) 50 mls @ 100 mls/hr IV Q24H LENORA Lactated Ringer's (Lr) 1,000 mls @ 100 mls/hr IVCONT .Q10H LENORA Last Admin: 05/25/22 09:07 Dose: 100 mls/hr Documented By: MARY ANNE Ondansetron HCl (Ondansetron Hcl 4 Mg/2 Ml Vial) 4 mg IVPUSH Q8H PRN PRN Reason: Nausea and Vomiting Last Admin: 05/25/22 10:24 Dose: 4 mg Documented By: MARY ANNE Oxycodone HCl (Oxycodone Hcl Immed Release 5 Mg Tablet) 5 mg PO Q6H PRN PRN Reason: Pain, Severe (Pain Scale 7-10) Last Admin: 05/24/22 23:30 Dose: 5 mg Documented By: CHICO Sodium Chloride (0.9 % Sodium Chloride Flush 3 Ml Syringe) 3 ml IVFLUSH QSHIFT [facility] Last Admin: 05/25/22 09:07 Dose: 3 ml Documented By: MARY ANNE Tamsulosin HCl (Tamsulosin Hcl 0.4 Mg Capsule) 0.4 mg PO BEDTIME [facility] Last Admin: 05/24/22 23:30 Dose: 0.4 mg Documented By: CHICO Labs 05/25/22 05:35 05/25/22 05:35 Labs: Laboratory Results - last 24 hr 05/24/22 05/24/22 05/24/22 16:25 16:25 16:25 MCV 86.3 MCH 28.2 MCHC 32.7 RDW 14.6 Plt Count 325 MPV 10.1 Immature Gran % (Auto) 0.3 Neut % (Auto) 89.0 H Lymph % (Auto) 4.0 L [place] % (Auto) 6.6 Eos % (Auto) 0.0 Baso % (Auto) 0.1 Lymph # (Auto) 0.7 L [place] # (Auto) 1.2 Eos # (Auto) 0.0 Baso # (Auto) 0.0 Abs Immat Gran (auto) 0.05 H Absolute Neuts (auto) 16.2 H Absolute Nucleated RBC 0.000 Nucleated RBC % (auto) 0.0 Anion Gap 17 Estim Creat Clear Calc 79.6 Estimated GFR > 60 Random Glucose 121 H Lactic Acid Lactic Acid F/U @ 2Hr Calcium 9.9 Magnesium 1.9 Total Bilirubin 0.5 AST 38 H ALT 32 Alkaline Phosphatase 153 H B-Natriuretic Peptide Total Protein 6.9 Albumin 3.8 Lipase 18 Urine Color Urine Appearance Urine pH Ur Specific [place] Urine Protein Urine Glucose (UA) Urine Ketones Urine Blood Urine Nitrite Ur Leukocyte Esterase Urine RBC Urine WBC Ur Squamous Epith Cells Urine Bacteria Hyaline Casts COVID-19 ([facility]) Negative COVID-19 Clin Com See Note 05/24/22 05/24/22 05/24/22 16:25 20:44 21:29 MCV MCH MCHC RDW Plt Count MPV Immature Gran % (Auto) Neut % (Auto) Lymph % (Auto) [place] % (Auto) Eos % (Auto) Baso % (Auto) Lymph # (Auto) [place] # (Auto) Eos # (Auto) Baso # (Auto) Abs Immat Gran (auto) Absolute Neuts (auto) Absolute Nucleated RBC Nucleated RBC % (auto) Anion Gap Estim Creat Clear Calc Estimated GFR Random Glucose Lactic Acid 2.3 H* Lactic Acid F/U @ 2Hr Calcium Magnesium Total Bilirubin AST ALT Alkaline Phosphatase B-Natriuretic Peptide Cancelled 86 Total Protein Albumin Lipase Urine Color Urine Appearance Urine pH Ur Specific [place] Urine Protein Urine Glucose (UA) Urine Ketones Urine Blood Urine Nitrite Ur Leukocyte Esterase Urine RBC Urine WBC Ur Squamous Epith Cells Urine Bacteria Hyaline Casts COVID-19 ([facility]) COVIDdeltaDNA 05/24/22 05/24/22 05/24/22 21:34 23:39 23:39 MCV 86.2 MCH 27.9 MCHC 32.4 RDW 14.6 Plt Count 281 MPV 9.8 Immature Gran % (Auto) 0.3 Neut % (Auto) 83.9 H Lymph % (Auto) 6.3 L [place] % (Auto) 9.4 Eos % (Auto) 0.0 Baso % (Auto) 0.1 Lymph # (Auto) 0.9 L [place] # (Auto) 1.3 H Eos # (Auto) 0.0 Baso # (Auto) 0.0 Abs Immat Gran (auto) 0.04 H Absolute Neuts (auto) 11.9 H Absolute Nucleated RBC 0.000 Nucleated RBC % (auto) 0.0 Anion Gap Estim Creat Clear Calc Estimated GFR Random Glucose Lactic Acid Lactic Acid F/U @ 2Hr 1.5 Calcium Magnesium Total Bilirubin AST ALT Alkaline Phosphatase B-Natriuretic Peptide Total Protein Albumin Lipase Urine Color RED Urine Appearance Turbid Urine pH 5.5 Ur Specific [place] 1.020 Urine Protein 100 (2+) H Urine Glucose (UA) Negative Urine Ketones Negative Urine Blood Large (3+) H Urine Nitrite Positive H Ur Leukocyte Esterase Moderate (2+) H Urine RBC >20 H Urine WBC >50 H Ur Squamous Epith Cells 0-2 Urine Bacteria Trace Hyaline Casts 0-2 COVID-19 ([facility]) COVID-Flat.to 05/25/22 05/25/22 05:35 05:35 MCV 86.8 MCH 28.6 MCHC 33.0 RDW 14.4 Plt Count 289 MPV 10.7 Immature Gran % (Auto) Neut % (Auto) Lymph % (Auto) [place] % (Auto) Eos % (Auto) Baso % (Auto) Lymph # (Auto) [place] # (Auto) Eos # (Auto) Baso # (Auto) Abs Immat Gran (auto) Absolute Neuts (auto) Absolute Nucleated RBC 0.000 Nucleated RBC % (auto) 0.0 Anion Gap 16 Estim Creat Clear Calc 90.8 Estimated GFR > 60 Random Glucose 77 Lactic Acid Lactic Acid F/U @ 2Hr Calcium 9.3 D Magnesium Total Bilirubin AST ALT Alkaline Phosphatase B-Natriuretic Peptide Total Protein Albumin Lipase Urine Color Urine Appearance Urine pH Ur Specific [place] Urine Protein Urine Glucose (UA) Urine Ketones Urine Blood Urine Nitrite Ur Leukocyte Esterase Urine RBC Urine WBC Ur Squamous Epith Cells Urine Bacteria Hyaline Casts COVID-19 ([facility]) COVID-19 Clin Com Microbiology Microbiology Results: Microbiology 05/24/22 Unknown Urine Culture - Preliminary Urine clean catch - Urine [place] top No growth to date. Assessment and Plan (1) Hematuria: Status: Acute (2) Acute urinary retention: Status: Acute (3) Acute UTI: Status: Acute (4) Sepsis: Status: Acute Plan 87-year-old male who denies any past medical history presents to the hospital with increased weakness and abdominal pain found to have acute UTI # sepsis secondary to UTI Hypothermia resolving, WBC trending down. - abdominal CT showing enlarged prostate with no other abnormality to explain patient presentation. Continue IV ceftriaxone - follow urine and blood cultures # acute lactic acidosis resolved likely due to sepsis # abdominal pain likely due to acute urinary retention - retention likely secondary to enlarged prostate as seen on CT - status post Cotton catheter insertion - continue Flomax, urology consulted # hematuria/bladder stone. - significant hematuria, likely secondary to traumatic Cotton insertion. - H&H dropped but stable , irrigate bladder if hematuria persists will start CBI. - urology consulted DVT prophylaxis:? SCDs Given patient's sepsis will need continued inpatient hospitalization for IV antibiotics and further treatment for hematuria and abdominal pain. Time Spent With Patient Time: Total time managing care of this patient today ____ minutes. Quality Stroke Does the patient have a stroke diagnosis?: No VTE Prior VTE?: No VTE Risk Level:: Medical - moderate - high VTE Device Contraindication: N/A - Device Ordered VTE Drug Contraindication: Treatment Not Indicated
--- NOTE | 2022-05-25 12:12 | MHC.CM.PN ---
pt lives alone had no service prior to coming into the hospitial dc plan tbd by pts care needs at time of d pt is covid vax x 3 has own ride home
[2022-05-25] MEDS: Morphine Sulfate 4 MG/ML CARTRIDGE 3 MG IVPUSH (18:16)
[2022-05-25] MEDS: cefTRIAXone sodium 1 GM in 0.9 % Sodium Chloride 50 ML IV (21:49)
[2022-05-25] MEDS: Tamsulosin HCL 0.4 MG CAPSULE PO (21:49)
[2022-05-25] MEDS: oxyCODONE HCl Immed Release 5 MG TABLET PO (21:49)
[2022-05-26 02:31] VITALS: TEMP 36.6
[2022-05-26 04:00] VITALS: BP 131/60; PULSE 77; RESP 18; TEMP 36.4; O2SAT 93
[2022-05-26] MEDS: Lactated Ringers 1,000 ML 100 ML IVCONT ×2 (04:24→14:10)
--- NOTE | 2022-05-26 04:33 | PC.NURSE ---
05/25/22: CBI noted to be clear around 2129. MD gomez and urologist notified. Awaiting call back from urologist. Propulsion Generator Repairer aware
[2022-05-26 06:06] LABS: Hemoglobin 12.6 g/dl (14.0-18.0); Mean Corpuscular HGB Conc 32.3 g/dl (31.0-36.0); Mean Corpuscular Hemoglobin 29.2 pg (27.0-33.0); Mean Corpuscular Volume 90.3 fL (80.0-98.0); Mean Platelet Volume 10.7 fL (9.4-12.4); Platelet Count 239 X10*3/uL (160-400); Red Blood Count 4.32 X10*6/uL (4.60-5.80); Red Cell Distribution Width 14.8 % (11.0-16.0); White Blood Count 12.6 X10*3/uL (4.8-10.8)
[2022-05-26 07:22] LABS: Anion Gap 17 (12-20); Blood Urea Nitrogen 19 mg/dL (9-16); Carbon Dioxide 20 mmol/L (22-29); Chloride 110 mmol/L (96-108); Potassium 4.7 mmol/L (3.3-5.1); Sodium 142 mmol/L (135-145)
[2022-05-26 07:23] LABS: Creatinine Clr Calc Pharmacy 71.7; Estimated Glomerular Filt Rate > 60; Glucose Random 60 mg/dL (60-115)
[2022-05-26 07:30] VITALS: BP 136/63; PULSE 75; RESP 18; TEMP 36.3; O2SAT 92
--- NOTE | 2022-05-26 12:08 | P.PNIM_ITS ---
Subjective Subjective Date of Service: 05/26/22 Interval History: Patient awake alert denies nausea vomiting or abdominal pain, CBI clamped last night urine this morning is clear patient denies urinary symptoms, no fevers no chills no overnight events. Review of Systems Review of Systems: Yes all other systems are reviewed and are negative Physical Exam Vital Signs: Vital Signs: Last Vital Signs Temp 97.4 F 05/26/22 07:30 Pulse 75 05/26/22 07:30 Resp 18 05/26/22 07:30 BP 136/63 05/26/22 07:30 Pulse Ox 92 05/26/22 07:30 O2 Del Method Room Air 05/26/22 07:30 BMI result Body Mass Index 30.4 Const: Other: General awake alert x3, resting comfortably in no acute distress.? Neck? supple no JVD. CVS? regular rate rhythm, Respiratory lungs clear to auscultation, no respiratory distress, no wheeze, no rhonchi. Gastrointestinal abdomen soft, nontender, bowel sounds audible, no guarding , no rigidity. Extremities no edema. Neuro moving all 4 extremity, speech clear. Skin no rash Psych appropriate affect Cotton catheter with clear urine in tubing, and consent treated urine in Cotton bag Objective Data Active Medications Acetaminophen (Acetaminophen 325 Mg Tablet) 650 mg PO Q6H PRN PRN Reason: Pain, Mild (Pain Scale 1-3) Last Admin: 05/24/22 23:30 Dose: 650 mg Documented By: CHICO Docusate Sodium (Docusate Sodium 100 Mg Capsule) 100 mg PO DAILY PRN PRN Reason: Constipation Ceftriaxone Sodium 1 gm/ (Sodium Chloride) 50 mls @ 100 mls/hr IV Q24H COUNT INCLUDES THE [facility] Last Infusion: 05/25/22 22:20 Dose: 0 mls/hr Documented By: JOSEPHINE Lactated Ringer's (Lr) 1,000 mls @ 100 mls/hr IVCONT .Q10H COUNT INCLUDES THE [facility] Last Admin: 05/26/22 04:24 Dose: 100 mls/hr Documented By: JOSEPHINE Morphine Sulfate (Morphine Sulfate 4 Mg/Ml Cartridge) 3 mg IVPUSH Q4H PRN; Protocol PRN Reason: Pain, Severe (Pain Scale 7-10) Last Admin: 05/25/22 18:16 Dose: 3 mg Documented By: MARY ANNE Ondansetron HCl (Ondansetron Hcl 4 Mg/2 Ml Vial) 4 mg IVPUSH Q8H PRN PRN Reason: Nausea and Vomiting Last Admin: 05/25/22 10:24 Dose: 4 mg Documented By: MARY ANNE Oxycodone HCl (Oxycodone Hcl Immed Release 5 Mg Tablet) 5 mg PO Q6H PRN PRN Reason: Pain, Severe (Pain Scale 7-10) Last Admin: 05/25/22 21:49 Dose: 5 mg Documented By: JOSEPHINE Sodium Chloride (0.9 % Sodium Chloride Flush 3 Ml Syringe) 3 ml IVFLUSH QSHIFT COUNT INCLUDES THE [facility] Last Admin: 05/26/22 09:27 Dose: Not Given Documented By: MARK Non-Admin Reason: IV Running Tamsulosin HCl (Tamsulosin Hcl 0.4 Mg Capsule) 0.4 mg PO BEDTIME COUNT INCLUDES THE [facility] Last Admin: 05/25/22 21:49 Dose: 0.4 mg Documented By: JOSEPHINE Labs 05/26/22 05:31 05/26/22 05:31 Labs: Laboratory Results - last 24 hr 05/26/22 05/26/22 05:31 05:31 MCV 90.3 MCH 29.2 MCHC 32.3 RDW 14.8 Plt Count 239 MPV 10.7 Absolute Nucleated RBC 0.000 Nucleated RBC % (auto) 0.0 Anion Gap 17 Estim Creat Clear Calc 71.7 Estimated GFR > 60 Random Glucose 60 Calcium 9.0 Microbiology Microbiology Results: Microbiology 05/24/22 21:25 Blood Culture - Preliminary Blood - Venous No growth after 24 hours. 05/24/22 21:25 Blood Culture - Preliminary Blood - Venous No growth after 24 hours. 05/24/22 Unknown Urine Culture - Preliminary Urine clean catch - Urine winslow top No growth to date. Assessment and Plan (1) Hematuria: Status: Acute (2) Acute urinary retention: Status: Acute (3) Acute UTI: Status: Acute (4) Sepsis: Status: Acute Plan 87-year-old male who denies any past medical history presents to the hospital with increased weakness and abdominal pain found to have acute UTI # sepsis secondary to UTI Hypothermia resolved, WBC trending down. - abdominal CT showing enlarged prostate with no other abnormality to explain patient presentation. Continue IV ceftriaxone d2 - urine and blood cultures so far negative, will check chest x-ray to rule out pneumonia # acute lactic acidosis resolved likely due to dehydration/sepsis Patient with poor by mouth intake, follow electrolytes encourage by mouth, DC IV fluids # abdominal pain likely due to acute urinary retention Abdominal pain resolved. - retention likely secondary to enlarged prostate as seen on CT - status post Cotton catheter insertion - continue Flomax, urology consulted # hematuria/bladder stone. - DC CBI, hematuria resolved, likely secondary to traumatic Cotton insertion. - H&H dropped but stable , - urology consulted # generalized weakness spoke to son patient lives alone at home, will obtain a PT evaluation . For DVT prophylaxis:? SCDs Patient will need continued inpatient hospitalization for IV antibiotics and further treatment for enlarged prostate and retention Time Spent With Patient Time: Total time managing care of this patient today ____ minutes. Quality Stroke Does the patient have a stroke diagnosis?: No VTE Prior VTE?: No VTE Risk Level:: Medical - moderate - high VTE Device Contraindication: N/A - Device Ordered VTE Drug Contraindication: Treatment Not Indicated
[2022-05-26 16:00] VITALS: BP 141/73; PULSE 72; RESP 16; TEMP 36.4; O2SAT 93
[2022-05-26 19:50] VITALS: BP 142/71; PULSE 77; RESP 16; TEMP 36.6; O2SAT 93
[2022-05-26] MEDS: Tamsulosin HCL 0.4 MG CAPSULE PO (22:17)
[2022-05-26] MEDS: cefTRIAXone sodium 1 GM in 0.9 % Sodium Chloride 50 ML IV (22:17)
[2022-05-27 03:40] VITALS: BP 144/67; PULSE 77; RESP 17; TEMP 36.1; O2SAT 92
[2022-05-27 07:37] VITALS: BP 132/61; PULSE 71; RESP 18; TEMP 36.1; O2SAT 91
[2022-05-27] MEDS: 0.9 % Sodium Chloride Flush 3 ML SYRINGE IVFLUSH ×3 (09:06→23:44)
[2022-05-27 09:33] VITALS: BP 132/61; PULSE 71; O2SAT 91
--- NOTE | 2022-05-27 12:38 | P.PNIM_ITS ---
Subjective Subjective Date of Service: 05/27/22 Interval History: Patient awake alert offers no acute complaints denies dysuria, no frequency, no abdominal pain, no nausea, no vomiting, no fevers, no chills or rigors evaluated by Physical therapy they recommended short-term rehab, events from last night noted patient developed hematuria therefore CBI was re-initiated, this morning urine is clear in tubing will clamp CBI, if urine remains clear in 4 hours will DC CBI. Review of Systems Review of Systems: Yes all other systems are reviewed and are negative Physical Exam Vital Signs: Vital Signs: Last Vital Signs Temp 97.0 F 05/27/22 07:37 Pulse 71 05/27/22 09:33 Resp 18 05/27/22 07:37 BP 132/61 05/27/22 09:33 Pulse Ox 91 L 05/27/22 09:33 O2 Del Method Room Air 05/27/22 07:37 BMI result Body Mass Index 30.4 Const: Other: General awake aler t x3, resting comf ortably in no acut e distress.? Neck? supple no JVD. CV S? regular rate rh ythm, Respiratory lungs clear to aus cultation, no resp iratory distress, no wheeze, no rhon chi. Gastrointesti nal abdomen soft, nontender, bowel s ounds audible, no guarding , no rigi dity. Extremities no edema. Neuro mo ving all 4 extremi ty, speech clear. Skin no rash Psych appropriate affec t Cotton catheter w ith clear urine in tubing, and dark old blood in Cotton catheter Objective Data Active Medications Acetaminophen (Acetaminophen 325 Mg Tablet) 650 mg PO Q6H PRN PRN Reason: Pain, Mild (Pain Scale 1-3) Last Admin: 05/24/22 23:30 Dose: 650 mg Documented By: CHICO Docusate Sodium (Docusate Sodium 100 Mg Capsule) 100 mg PO DAILY PRN PRN Reason: Constipation Ceftriaxone Sodium 1 gm/ (Sodium Chloride) 50 mls @ 100 mls/hr IV Q24H [facility] Last Infusion: 05/26/22 23:14 Dose: 100 mls/hr Documented By: HELEN Morphine Sulfate (Morphine Sulfate 4 Mg/Ml Cartridge) 3 mg IVPUSH Q4H PRN; Protocol PRN Reason: Pain, Severe (Pain Scale 7-10) Last Admin: 05/25/22 18:16 Dose: 3 mg Documented By: MARY ANNE Ondansetron HCl (Ondansetron Hcl 4 Mg/2 Ml Vial) 4 mg IVPUSH Q8H PRN PRN Reason: Nausea and Vomiting Last Admin: 05/25/22 10:24 Dose: 4 mg Documented By: MARY ANNE Oxycodone HCl (Oxycodone Hcl Immed Release 5 Mg Tablet) 5 mg PO Q6H PRN PRN Reason: Pain, Severe (Pain Scale 7-10) Last Admin: 05/25/22 21:49 Dose: 5 mg Documented By: JOSEPHINE Sodium Chloride (0.9 % Sodium Chloride Flush 3 Ml Syringe) 3 ml IVFLUSH QSHIFT [facility] Last Admin: 05/27/22 09:06 Dose: 3 ml Documented By: SAMRA Tamsulosin HCl (Tamsulosin Hcl 0.4 Mg Capsule) 0.4 mg PO BEDTIME [facility] Last Admin: 05/26/22 22:17 Dose: 0.4 mg Documented By: WATSONJ Labs 05/26/22 05:31 05/26/22 05:31 Microbiology Microbiology Results: Microbiology 05/24/22 21:25 Blood Culture - Preliminary Blood - Venous No growth after 48 hours. 05/24/22 21:25 Blood Culture - Preliminary Blood - Venous No growth after 48 hours. 05/24/22 Unknown Urine Culture - Final Urine clean catch - Urine winslow top Streptococcus viridans group Assessment and Plan (1) Hematuria: Status: Acute (2) Acute urinary retention: Status: Acute (3) Acute UTI: Status: Acute (4) Sepsis: Status: Acute Plan 87-year-old male who denies any past medical history presents to the hospital with increased weakness and abdominal pain found to have acute UTI # sepsis secondary to UTI Hypothermia resolved, WBC trending down. - abdominal CT showing enlarged prostate with no other abnormality to explain patient presentation. Continue IV ceftriaxone d3, urine culture grew Streptococcus viridans [phone] [id number], will discuss antibiotic coverage with id chest x-ray showed interstitial and airspace disease mostly chronic with some concern for superimposed since was of acute disease, patient asymptomatic with no shortness of breath or cough. # acute lactic acidosis resolved likely due to dehydration/sepsis status post IV fluids # abdominal pain likely due to acute urinary retention Abdominal pain resolved. retention likely secondary to enlarged prostate as seen on CT - cont. Cotton catheter, continue Flomax, await urology input # hematuria/bladder stone. Hematuria resolved with CBI, developed hematuria last night again likely pulled Cotton catheter, this morning urine looks clear, will clamp CBI follow H&H await Urology input. # generalized weakness PT recommend short-term rehab DVT prophylaxis:? SCDs Patient will need continued inpatient hospitalization for IV antibiotics and further treatment for enlarged prostate and retention. Time Spent With Patient Time: Total time managing care of this patient today ____ minutes. Quality Stroke Does the patient have a stroke diagnosis?: No VTE Prior VTE?: No VTE Risk Level:: Medical - moderate - high VTE Device Contraindication: N/A - Device Ordered VTE Drug Contraindication: Treatment Not Indicated
--- NOTE | 2022-05-27 13:13 | PM.UROCN ---
History of Present Illness Consult details Consult date: 05/27/22 Narrative: Urinary retention 87-year-old male Resolving hematuria Prior bladder biopsy Urinary retention Follow-up voiding trial in office Review of Systems Constitutional: Constitutional: Reports as per HPI and Reports no additional constitutional complaints Cardiovascular: Cardiovascular: Reports as per HPI and Reports no additional cardiovascular complaints Respiratory: Respiratory: Reports as per HPI and Reports no additional respiratory complaints Gastrointestinal: Gastrointestinal: Reports as per HPI and Reports no additional gastrointestinal complaints Genitourinary: Genitourinary: Reports as per HPI Musculoskeletal: Musculoskeletal: Reports no additional musculoskeletal complaints and Reports as per HPI Neurologic: Reports system reviewed and no additional complaints, except as documented and Reports as per HPI PMF Past Medical History Medical History ILD (interstitial lung disease) No pertinent past medical history Respiratory failure with hypoxia Surgical History Surgical History No pertinent past surgical history Social History Social History Household Members: Other Household Members Other:: Patient resides @ [facility] Housing: Alf Do you presently have visiting nurse or other home services: Yes Patient Tobacco Use Status: Former Tobacco user Quit Date: 30 years ago Tobacco use type: Cigarette e-Cigarette/Vaping Use: Never Used Second Hand Smoke Exposure: No Advance Directives Date on File: 06/06/22 service: No Current occupational status: retired Meds Allergies Allergy/AdvReac Type Severity Reaction Status Date / Time No Known Allergies Allergy Mild NONE Verified 05/24/22 15:15 Active Medications: Current Medications Acetaminophen (Acetaminophen 325 Mg Tablet) 650 mg PO Q6H PRN PRN Reason: Pain, Mild (Pain Scale 1-3) Last Admin: 05/24/22 23:30 Dose: 650 mg Docusate Sodium (Docusate Sodium 100 Mg Capsule) 100 mg PO DAILY PRN PRN Reason: Constipation Ceftriaxone Sodium 1 gm/ (Sodium Chloride) 50 mls @ 100 mls/hr IV Q24H [facility] Last Infusion: 05/26/22 23:14 Dose: Infused Morphine Sulfate (Morphine Sulfate 4 Mg/Ml Cartridge) 3 mg IVPUSH Q4H PRN; Protocol PRN Reason: Pain, Severe (Pain Scale 7-10) Last Admin: 05/25/22 18:16 Dose: 3 mg Ondansetron HCl (Ondansetron Hcl 4 Mg/2 Ml Vial) 4 mg IVPUSH Q8H PRN PRN Reason: Nausea and Vomiting Last Admin: 05/25/22 10:24 Dose: 4 mg Oxycodone HCl (Oxycodone Hcl Immed Release 5 Mg Tablet) 5 mg PO Q6H PRN PRN Reason: Pain, Severe (Pain Scale 7-10) Last Admin: 05/25/22 21:49 Dose: 5 mg Sodium Chloride (0.9 % Sodium Chloride Flush 3 Ml Syringe) 3 ml IVFLUSH QSHIFT [facility] Last Admin: 05/27/22 09:06 Dose: 3 ml Tamsulosin HCl (Tamsulosin Hcl 0.4 Mg Capsule) 0.4 mg PO BEDTIME [facility] Last Admin: 05/26/22 22:17 Dose: 0.4 mg Home Medications Medication Instructions Recorded Confirmed Last Taken Type acetaminophen 325 mg tablet 650 mg PO Q6H PRN fever/pain 06/06/22 06/06/22 Unknown History bisacodyl 10 mg rectal suppository 10 mg [place] Q3D PRN Constipation 06/06/22 06/06/22 Unknown History (Dulcolax (bisacodyl)) magnesium hydroxide 400 mg/5 mL 30 ml PO DAILY PRN Constipation 06/06/22 06/06/22 Unknown History oral suspension (Milk of Magnesia) sodium phosphates 19 gram-7 118 ml [place] DAILY PRN Constipation 06/06/22 06/06/22 Unknown History gram/118 mL enema (Fleet Enema) Physical Exam Vital Signs: Vital Signs: Last Vital Signs Temp 97.0 F 05/27/22 07:37 Pulse 71 05/27/22 09:33 Resp 18 05/27/22 07:37 BP 132/61 05/27/22 09:33 Pulse Ox 91 L 05/27/22 09:33 O2 Del Method Room Air 05/27/22 07:37 BMI result Body Mass Index 30.4 Const: General: cooperative, healthy appearing, comfortable and no acute distress Orientation/consciousness: patient oriented x3 HEENT: Face and sinus: Yes normal facial exam Mouth: moist mucous membranes Neck: Neck: Yes normal visual inspection, Yes full ROM and Yes trachea midline Chest: Chest palpation & inspection: normal inspection of the chest Resp: Effort & Inspection: normal respiratory effort, able to speak in complete sentences and no respiratory distress GI: Inspection: Yes normal to inspection Back/Spine/Pelvis: Cervical Spine: normal cervical lordosis Thoracic/Lumbar Spine: thoracic and lumbar spine normal to inspection Skin: General skin exam: no rashes or lesions noted Neuro: General: patient oriented x3, tone normal and moves all extremities Extrem: General: Yes normal to inspection and Yes capillary refill normal Results Labs 05/26/22 05:31 05/26/22 05:31 Labs: Urine 05/24/22 Range/Units 21:34 Urine Color RED Urine Appearance Turbid Urine pH 5.5 (5.0-9.0) Ur Specific [place] 1.020 (1.005-1.025) Urine Protein 100 (2+) H (Neg-Trace) mg/dL Urine Glucose (UA) Negative (Negative) mg/dL All other labs normal. Assessment and Plan (1) Urinary retention with incomplete bladder emptying: Status: Acute Plan Office follow-up voiding trial Time Spent With Patient Time: Total time managing care of this patient today ____ minutes. Procedures Date of Service Date of Service: 05/24/22
[2022-05-27] MEDS: Finasteride 5 MG TABLET PO (13:59)
[2022-05-27 15:44] VITALS: BP 147/71; PULSE 71; RESP 15; TEMP 36.1; O2SAT 92
[2022-05-27 20:00] VITALS: BP 166/73; PULSE 71; RESP 16; TEMP 36.1; O2SAT 92
[2022-05-27] MEDS: Tamsulosin HCL 0.4 MG CAPSULE PO (20:13)
[2022-05-27] MEDS: cefTRIAXone sodium 1 GM in 0.9 % Sodium Chloride 50 ML IV (20:13)
[2022-05-28 03:55] VITALS: BP 150/69; PULSE 70; RESP 20; TEMP 36; O2SAT 92
[2022-05-28] MEDS: Finasteride 5 MG TABLET PO (07:47)
[2022-05-28] MEDS: 0.9 % Sodium Chloride Flush 3 ML SYRINGE IVFLUSH (07:48)
[2022-05-28 07:52] VITALS: BP 162/74; PULSE 67; RESP 20; TEMP 36.1; O2SAT 92
--- NOTE | 2022-05-28 10:04 | P.DS_ITS ---
DS: Providers Provider Date of Service: 05/28/22 Date of admission: 05/24/22 22:45 Primary care physician: Lewis Hanson MD Consults: 05/24/22 22:44 Consult to Urology Routine Consulting Provider: Ed Ponce Reason for consultation: urinary retention, Hematuria Has provider been notified: No DS: Diagnosis Discharge Diagnosis (1) Hematuria: Status: Acute (2) Acute urinary retention: Status: Acute (3) Acute UTI: Status: Acute (4) Sepsis: Status: Acute DS: Summary Hospital Course Hospital Course: Date of Service: 05/24/22 Chief Complaint: abd pain You 7-year-old male who denies any past medical history brought into the hospital by his son with complaints of increasing weakness, and abdominal pain for the past 2 days.? Son reports that he noticed his father was increasingly weak, having difficulty ambulating worse from his baseline, states that he has b een complaining of lower abdominal pain as well, no fever no chills, patient reports urinary retention as well as dysuria on urination.? Denies any fever, no chest pain, no shortness of breath, no lower extremity edema. Vitals on arrival stable Labs are significant for WBC count of 13.2, lactic acid of 2.3, AST of 38, ALT of 32, alk-phos of 153, BNP of 86, UA positive for leukocyte esterase, nitrates, WBC Abdomen pelvic CT shows markedly enlarged prostate with a volume of approximately 300 mL in the bladder, 1 cm stone in the bladder, Patient started on IV antibiotics and will be admitted for further management. Hospital course 87-year-old male who denies any past medical history presents to the hospital with increased weakness and abdominal pain found to have acute UTI # sepsis? secondary to UTI, CT showing enlarged prostate with no other abnormality to explain abdominal pain, admitted to medical floor treated with IV ceftriaxone, Flomax, IV fluids and analgesics, urine culture grew Streptococcus viridans [id number], and chest x-ray showed interstitial and airspace disease,acute on chronic, abdominal pain and nausea resolved, temperature improved WBC is trending down, Cotton catheter placed noted to have hematuria likely traumatic Cotton insertion hematuria resolved with CBI, hematocrit remains stable, seen by Dr. Ponce he added Proscar and recommend outpatient voiding trial, patient evaluated by Physical therapy they recommend short-term rehab due to generalized weakness, patient placed on 2 L of oxygen likely due to acute on chronic interstitial lung disease, will encourage incentive spirometry, cough medication as needed. Wean oxygen as tolerated patient not on home O2. ? # acute lactic acidosis resolved likely due to dehydration/sepsis status post IV fluids ? # abdominal pain likely due to acute urinary retention, abdominal pain resolved. Time Spent with Patient Time attestation: Total time managing care of this patient today ____ minutes. Discharge coordination time: Greater than 30 minutes Quality: Safe Use of Opioids Does Pt have an Active Cancer Diagnosis on the Problem List?: No Quality: Stroke Does the patient have a stroke diagnosis?: No Physical Exam Vital Signs: Vital Signs: Last Vital Signs Temp 96.9 F 05/28/22 07:52 Pulse 67 05/28/22 07:52 Resp 20 05/28/22 07:52 BP 162/74 H 05/28/22 07:52 Pulse Ox 92 05/28/22 07:52 O2 Del Method Nasal Cannula 05/28/22 07:52 O2 Flow Rate 2 05/28/22 07:52 BMI result Body Mass Index 30.4 Const: Other: General awake aler t x3, resting comf ortably in no acut e distress.? Neck? supple no JVD. CV S? regular rate rh ythm, Respiratory lungs clear to aus cultation, diminis hed, no respirator y distress, no whe rah. Gastrointesti nal abdomen soft, nontender, bowel s ounds audible, no guarding , no rigi dity. Extremities no edema. Neuro mo ving all 4 extremi ty, speech clear. Skin no rash Psych appropriate affec t Cotton catheter w ith clear urine in tubing. DS: Data Data Completed and Pending Labs on day of discharge: Preliminary micro results at discharge 05/24/22 21:25 Blood Culture - Preliminary Blood - Venous No growth after 48 hours. 05/24/22 21:25 Blood Culture - Preliminary Blood - Venous No growth after 48 hours. Discharge Plan Discharge Anticipated Discharge Date/Time: 05/28/22 10:03 Patient Disposition: Xfer SNF Discharge Diagnosis: Sepsis due to UTI Hematuria Referrals: [facility] [Outside] - 1 Week Lewis Hanson MD [Primary Care Provider] - 1 Week Discharge Medications: New tamsulosin 0.4 mg Capsule 0.4 mg PO BEDTIME Qty: 30 0RF finasteride 5 mg Tablet 5 mg PO DAILY Qty: 30 0RF cefuroxime axetil 250 mg tablet 250 mg PO BID 10 Days Qty: 20 0RF Discharge Orders: Discharge Order (Routine); Ordered 05/28/22 Ordered By: Mary Ramírez Diet: Advance to usual diet Activity on Discharge: As tolerated Stand Alone Forms: Patient Portal Discharge page Care Plan Goals: Hematuria resolved continue Cotton catheter with outpatient voiding trial with urologist Dr. Ponce Wean oxygen , encourage incentive spirometry Health Concerns: Physical therapy for generalized weakness Plan of Treatment: outpt follow up with Dr Ponce in 1-2 weeks , call for appointment. Assessment: as above
--- NOTE | 2022-05-28 10:14 | P.PNIM_ITS ---
Subjective Subjective Date of Service: 05/28/22 Interval History: Being followed for hematuria, resting comfortably offers no complaints of abdominal pain no nausea no vomiting, tolerating diet no acute issues overnight common 2 L of oxygen finger oximetry 92% denies shortness of breath complain of chronic dry cough for 4 months, no fevers no chills no chest pain. Review of Systems Review of Systems: Yes all other systems are reviewed and are negative Physical Exam Vital Signs: Vital Signs: Last Vital Signs Temp 96.9 F 05/28/22 07:52 Pulse 67 05/28/22 07:52 Resp 20 05/28/22 07:52 BP 162/74 H 05/28/22 07:52 Pulse Ox 92 05/28/22 07:52 O2 Del Method Nasal Cannula 05/28/22 07:52 O2 Flow Rate 2 05/28/22 07:52 BMI result Body Mass Index 30.4 Const: Other: General awake aler t x3, resting comf ortably in no acut e distress.? Neck? supple no JVD. CV S? regular rate rh ythm, Respiratory lungs clear to aus cultation, no resp iratory distress, no wheeze, no rhon chi. Gastrointesti nal abdomen soft, nontender, bowel s ounds audible, no guarding , no rigi dity. Extremities no edema. Neuro mo ving all 4 extremi ty, speech clear. Skin no rash Psych appropriate affec t Cotton catheter w ith clear urine Objective Data Active Medications Acetaminophen (Acetaminophen 325 Mg Tablet) 650 mg PO Q6H PRN PRN Reason: Pain, Mild (Pain Scale 1-3) Last Admin: 05/24/22 23:30 Dose: 650 mg Documented By: CHICO Docusate Sodium (Docusate Sodium 100 Mg Capsule) 100 mg PO DAILY PRN PRN Reason: Constipation Finasteride (Finasteride 5 Mg Tablet) 5 mg PO DAILY [facility] Last Admin: 05/28/22 07:47 Dose: 5 mg Documented By: ANCA Ceftriaxone Sodium 1 gm/ (Sodium Chloride) 50 mls @ 100 mls/hr IV Q24H [facility] Last Infusion: 05/27/22 21:14 Dose: 0 mls/hr Documented By: AUSTIN Morphine Sulfate (Morphine Sulfate 4 Mg/Ml Cartridge) 3 mg IVPUSH Q4H PRN; Protocol PRN Reason: Pain, Severe (Pain Scale 7-10) Last Admin: 05/25/22 18:16 Dose: 3 mg Documented By: MARY ANNE Ondansetron HCl (Ondansetron Hcl 4 Mg/2 Ml Vial) 4 mg IVPUSH Q8H PRN PRN Reason: Nausea and Vomiting Last Admin: 05/25/22 10:24 Dose: 4 mg Documented By: MARY ANNE Oxycodone HCl (Oxycodone Hcl Immed Release 5 Mg Tablet) 5 mg PO Q6H PRN PRN Reason: Pain, Severe (Pain Scale 7-10) Last Admin: 05/25/22 21:49 Dose: 5 mg Documented By: JOSEPHINE Sodium Chloride (0.9 % Sodium Chloride Flush 3 Ml Syringe) 3 ml IVFLUSH [facility] Last Admin: 05/28/22 07:48 Dose: 3 ml Documented By: ANCA Tamsulosin HCl (Tamsulosin Hcl 0.4 Mg Capsule) 0.4 mg PO BEDTIME [facility] Last Admin: 05/27/22 20:13 Dose: 0.4 mg Documented By: AUSTIN Labs 05/26/22 05:31 05/26/22 05:31 Assessment and Plan (1) Hematuria: Status: Acute (2) Acute urinary retention: Status: Acute (3) Acute UTI: Status: Acute Plan 87-year-old male who denies any past medical history presents to the hospital with increased weakness and abdominal pain found to have acute UTI # sepsis? secondary to UTI ? All features of sepsis resolved ? on IV ceftriaxone d4, urine culture grew Streptococcus viridans [id number], will transition to by mouth Ceftin 250 mg b.i.d. for total 14 days ? chest x-ray showed interstitial and airspace disease mostly chronic with some concern for superimposed since was of acute disease, patient asymptomatic with no shortness of breath , has chronic dry cough noted to have mild hypoxia finger oximetry 91% will place on oxygen and at incentive spirometry, question viral infections, Ceftin will cover respiratory pathogens Seen by Urology they recommend voiding trial outpatient. # acute lactic acidosis resolved likely due to dehydration/sepsis status post IV fluids ? # abdominal pain likely due to acute urinary retention resolved ? # hematuria/bladder stone.? Hematuria resolved with CBI, hematocrit stable # generalized weakness PT recommend short-term rehab DVT prophylaxis:? SCDs Patient will need continued inpatient hospitalization for safe disposition Time Spent With Patient Time: Total time managing care of this patient today ____ minutes. Quality Stroke Does the patient have a stroke diagnosis?: No VTE Prior VTE?: No VTE Risk Level:: Medical - moderate - high VTE Device Contraindication: N/A - Device Ordered VTE Drug Contraindication: Treatment Not Indicated
[2022-05-28 12:40] LABS: COVID-19 Test Negative (Negative); IDNOW Serial# 55D5AD1C
--- NOTE | 2022-05-28 13:09 | MHC.CM.PN ---
PT WILL DC TO [facility] TODAY via BLS FOR STR PT IS AWARE AND IN AGREEMENT HIS PREFERRED SNF OPTIONS, [facility] AND [facility], ARE UNABLE TO OFFER
--- NOTE | 2022-05-28 13:57 | PC.NURSE ---
SON ,ITALO [phone] AWARE OF PATIENT DC TO [facility] VIA AMBULANCE PATIENT ASKED THAT T/W CALL SON. PUCKETT CALLED T/W PRIOR TO
== END 2022-05-28 13:56 | disposition skilled nursing facility (03) | DRG 872 ==
LOC: HO.ED 22:38 → HO.EDOVER 23:12 → HO.S3 23:24
PROVIDERS: Physician Assistant; Admitting Provider Internal Medicine; Emergency Provider Student in an Organized Health Care Education/Training Program; PCP Internal Medicine; Visit Provider Hospitalist
DX: A41.9 Sepsis, unspecified organism (principal); N39.0 Urinary tract infection, site not specified; E87.21 Acute metabolic acidosis; T83.83XA Hemorrhage due to genitourinary prosthetic devices, implants and grafts, initial encounter; E86.0 Dehydration; B95.4 Other streptococcus as the cause of diseases classified elsewhere; N21.0 Calculus in bladder; R31.9 Hematuria, unspecified; R68.0 Hypothermia, not associated with low environmental temperature; Z20.822 Contact with and (suspected) exposure to COVID-19; Z87.891 Personal history of nicotine dependence; Z79.899 Other long term (current) drug therapy
CPT/HCPCS: 36415; 70450; 71045; 74177; 80048; 80053; 81001; 83605; 83690; 83735; 83880; 85025; 85027; 87040; 87086; 87635; 97110; 97116; 97162; 99285; C1758; J0696; J2270; J2405; Q9967

== ENCOUNTER → 2022-05-24 22:45 | Outpatient (BNV) | payer MEDICARE, SELFPAY | PROVIDERS: Admitting Provider Internal Medicine; Emergency Provider Student in an Organized Health Care Education/Training Program; PCP Internal Medicine; Visit Provider Urology | DX: R33.9 Retention of urine, unspecified (principal) | CPT/HCPCS: 99221 ==

== ENCOUNTER 2022-06-06 06:09 | Outpatient (REF) | payer MEDICARE, SELFPAY ==
[2022-06-06 06:54] LABS: Basophils Percent Auto 0.3 % (0-2); Hematocrit 36.8 % (42.0-52.0); Hemoglobin 11.7 g/dl (14.0-18.0); Imm Gran Abs Auto 0.06 X10*3/uL (0.00-0.03); Imm Gran Pct Auto 0.4 % (0.0-0.4); Lymphocytes Absolute Auto 1.3 X10*3/uL (1.2-4.9); Lymphocytes Percent Auto 7.9 % (20-40); MANUAL DIFF FLAG SCAN; Mean Corpuscular HGB Conc 31.8 g/dl (31.0-36.0); Mean Corpuscular Hemoglobin 27.6 pg (27.0-33.0); Mean Corpuscular Volume 86.8 fL (80.0-98.0); Monocytes Absolute Auto 1.8 X10*3/uL (0.1-1.2); Monocytes Percent Auto 11.2 % (2-11); Neutrophils Absolute Auto 12.8 x10*3/uL (2.0-8.3); Neutrophils Percent Auto 80.2 % (45-73); Platelet Count 272 X10*3/uL (160-400); Red Blood Count 4.24 X10*6/uL (4.60-5.80); Red Cell Distribution Width 14.2 % (11.0-16.0); SCAN SMEAR FLAG 1
[2022-06-06 07:19] LABS: SLIDE REVIEW VERIFIED
[2022-06-06 07:45] LABS: Anion Gap 16 (12-20); Blood Urea Nitrogen 16 mg/dL (9-16); Calcium 8.3 mg/dL (8.4-10.2); Carbon Dioxide 24 mmol/L (22-29); Chloride 104 mmol/L (96-108); Estimated Glomerular Filt Rate > 60; Potassium 4.2 mmol/L (3.3-5.1); Sodium 140 mmol/L (135-145)
[2022-06-06 07:56] LABS: Glucose Random 56 mg/dL (60-115)
== END 2022-06-06 06:10 | disposition home or self-care (01) ==
LOC: HO.MMNH1L 06:09
PROVIDERS: Visit Provider Family Medicine
DX: Z13.89 Encounter for screening for other disorder (principal)
CPT/HCPCS: 36415; 80048; 85025

== ENCOUNTER 2022-06-06 11:54 | Inpatient (IN) | payer MEDICARE, SELFPAY ==
[2022-06-06] VITALS (12 sets, daily range): BP systolic 135–152; BP diastolic 63–80; PULSE 62–95; RESP 15–26; TEMP 34.6–36.5; O2SAT 90–96; BMI 29.9
--- NOTE | ~2022-06-06 | XR_ITS ---
EXAMINATION: XR CHEST CLINICAL INFORMATION: Acute dyspnea COMPARISON: Previous chest x-ray 05/26/2022 TECHNIQUE: Frontal view of the chest was obtained. FINDINGS: The cardiac and mediastinal contours are stable. There is diffuse mixed interstitial and airspace disease, right lung greater than left. This appears increased in the right upper lung compared to 05/26/2022. No pleural effusion. No pneumothorax. Degenerative changes of the spine. XR/XR chest 1V IMPRESSION: Diffuse mixed interstitial and airspace disease increased from 05/26/2022 exam.Differential would include atypical interstitial pneumonia such as viral pneumonia, interstitial lung disease with acute alveolitis, pulmonary edema, aspiration and pulmonary hemorrhage.
--- NOTE | ~2022-06-06 | XR_ITS ---
EXAMINATION: XR CHEST CLINICAL INFORMATION: Intubation. Triple lumen catheter placement. COMPARISON: Chest x-ray earlier this morning TECHNIQUE: Frontal view of the chest was obtained. FINDINGS: Interval placement of endotracheal tube which terminates approximately 4.9 cm above the level the chela. Right-sided jugular catheter noted with tip terminating within the distal SVC. No pneumothorax. Patchy bilateral airspace disease again demonstrated within hypoinflated lungs. XR/XR chest 1V IMPRESSION: 1. Support apparatus in expected position. 2. No pneumothorax. 3. Stable patchy bilateral airspace disease.
--- NOTE | ~2022-06-06 | XR_ITS ---
EXAMINATION: XR CHEST CLINICAL INFORMATION: Hypoxia COMPARISON: Chest x-ray 06/06/2022. CT chest 06/06/2022 TECHNIQUE: Frontal portable view of the chest was obtained. 6:21 PM FINDINGS: Redemonstration of the diffuse mixed interstitial and airspace disease, right lung greater than left. No significant change since 06/06/2022. No large pleural effusion. No pneumothorax. XR/XR chest 1V IMPRESSION: Diffuse mixed interstitial and airspace disease, right lung greater than left. No change since prior chest x-ray 06/06/2022.
--- NOTE | ~2022-06-06 | XR_ITS ---
EXAMINATION: XR CHEST CLINICAL INFORMATION: Hypoxia COMPARISON: 06/09/2022 TECHNIQUE: Frontal view of the chest was obtained. FINDINGS: The lungs are well expanded. Bilateral airspace opacities with bronchial wall thickening throughout. This is similar to prior. No pleural effusion or pneumothorax. The cardiomediastinal silhouette is within normal limits. Degenerative changes of the spine. XR/XR chest 1V IMPRESSION: Similar appearance of bilateral airspace opacities with bronchial wall thickening. Considerations include infectious or inflammatory process versus edema. There could be a component of chronic lung disease as well.
--- NOTE | ~2022-06-06 | US_ITS ---
EXAMINATION: US VENOUS ULTRASOUND WITH DOPPLER LOWER EXTREMITY, BILATERAL CLINICAL INFORMATION: Bilateral leg swelling. Hypoxia. COMPARISON: None available. TECHNIQUE: Ultrasound of the deep veins is performed from the hip to the calf with compression sonography and color and pulse Doppler assessment. Spectral analysis with color-flow imaging is performed. FINDINGS: RIGHT: There is normal venous compression and respiratory variation and augmented flow. The visualized common femoral vein, superficial femoral vein, profunda femoral vein, popliteal vein, and the trifurcation region shows no evidence of deep venous thrombosis. There is no significant popliteal fossa cyst. LEFT: There is normal venous compression and respiratory variation and augmented flow. The visualized common femoral vein, superficial femoral vein, profunda femoral vein, popliteal vein, and the posterior tibial vein shows no evidence of deep venous thrombosis. Left peroneal vein is not visualized. There is no significant popliteal fossa cyst. US/US venous duplex LE BI IMPRESSION: No DVT demonstrated in the bilateral lower extremity.
--- NOTE | ~2022-06-06 | CT_ITS ---
EXAMINATION: CT ANGIOGRAM OF THE CHEST WITH AND WITHOUT CONTRAST (CT PULMONARY ANGIOGRAM FOR PE) CLINICAL INFORMATION: Reason for Exam dyspnea COMPARISON: Previous chest x-ray from the same day TECHNIQUE: Prior to contrast administration, noncontrast localization images were obtained. Subsequently, multidetector volumetric imaging was performed from the thoracic inlet to below the diaphragms following the administration of 65 mL Omnipaque 350 intravenous contrast. No contrast reaction reported Sagittal, coronal, and MIP oblique sagittal reformatted images were obtained on the CT workstation, uploaded to PACS, and reviewed. This CT examination was performed using dose optimization techniques as appropriate, variously including the following: *Automated exposure control *Adjustment of mA and/or kV according to patient size (this includes techniques or standardized protocols for targeted exams where dose is matched to indication/reason for exam; i.e. extremities or head) *Use of iterative reconstruction technique Total exam dose-length product 584 mGy-cm FINDINGS: QUALITY OF STUDY/CONTRAST BOLUS: Satisfactory. PULMONARY ARTERIES: No pulmonary emboli. The pulmonary arteries are enlarged, main and right pulmonary artery measuring 3.3 cm. THORACIC AORTA: No aneurysm. LUNG: There is mixed interstitial and and airspace disease. There is some component of crazy paving pattern particularly at the lung apices. Compared to chest x-ray from 05/26/2022 this appears increased in the right upper lung. PLEURA: Small bilateral pleural effusions, right greater than left. MEDIASTINUM: Normal heart size. No pericardial effusion. Diffuse enlarged mediastinal and bilateral hilar lymphadenopathy. May be a small esophageal hernia. No evidence of septal bowing or right heart strain. CORONARY ARTERY CALCIFICATION: None visualized on this study. CHEST WALL/AXILLA: No axillary or internal mammary lymphadenopathy. OSSEOUS STRUCTURES: No acute or suspicious osseous abnormality. Degenerative changes of the spine. UPPER ABDOMEN: Unremarkable. No reflux of contrast into the hepatic veins to suggest elevated right heart pressures. CT/CT angio chest PE protocol IMPRESSION: No evidence of pulmonary embolism. The pulmonary arteries are enlarged. Diffuse interstitial and airspace disease. This is increasing compared to chest x-ray from earlier this month. Enlarged diffuse mediastinal and bilateral hilar lymphadenopathy. Small bilateral pleural effusions. Infectious or inflammatory process is favored. In particular, viral pneumonia, ARDS, and aspiration should be considered. Differential would include pulmonary edema and pulmonary hemorrhage and interstitial lung disease with acute alveolitis. VTE: negative
--- NOTE | 2022-06-06 13:30 | ECG_ITS ---
Test Reason : CHEST PAIN Blood Pressure : / mmHG Vent. Rate : 062 BPM Atrial Rate : 062 BPM P-R Int : 186 ms QRS Dur : 108 ms QT Int : 466 ms P-R-T Axes : 027 018 -10 degrees QTc Int : 472 ms Normal sinus rhythm Normal ECG When compared with ECG of 12-JAN-2012 18:14, Inverted T waves have replaced nonspecific T wave abnormality in Inferior leads Referred By: Michael Alexandra Electronically Signed By:RENARD AVILEZ
[2022-06-06 14:04] LABS: MANUAL DIFF FLAG NO
[2022-06-06 14:05] LABS: Basophils Percent Auto 0.2 % (0-2); Hematocrit 41.9 % (42.0-52.0); Hemoglobin 13.3 g/dl (14.0-18.0); Imm Gran Abs Auto 0.07 X10*3/uL (0.00-0.03); Imm Gran Pct Auto 0.5 % (0.0-0.4); Lymphocytes Absolute Auto 0.9 X10*3/uL (1.2-4.9); Lymphocytes Percent Auto 6.4 % (20-40); Mean Corpuscular HGB Conc 31.7 g/dl (31.0-36.0); Mean Corpuscular Hemoglobin 27.9 pg (27.0-33.0); Mean Platelet Volume 9.8 fL (9.4-12.4); Monocytes Absolute Auto 1.1 X10*3/uL (0.1-1.2); Neutrophils Percent Auto 84.9 % (45-73); Platelet Count 303 X10*3/uL (160-400); Red Blood Count 4.76 X10*6/uL (4.60-5.80); Red Cell Distribution Width 14.2 % (11.0-16.0); White Blood Count 14.1 X10*3/uL (4.8-10.8)
--- NOTE | 2022-06-06 14:09 | ED_ITS ---
HPI - General Adult General Chief complaint: Dyspnea Stated complaint: SOB Time Seen by Provider: 06/06/22 13:28 Source: patient Mode of arrival: EMS Limitations: no limitations History of Present Illness HPI narrative: 87-year-old male presents with shortness of breath, generalized weakness. Patient was recently hospitalized with UTI and sepsis. Her last 24 hours, patient complains of increasing weakness and shortness of breath. Patient describes the symptoms as severe. There is no clear relieving or exacerbating features. He root he denies any fever but does feel chilled. He denies any nausea, vomiting, chest pain. Denies any cough or mucus production. He denies any orthopnea, PND or lower extremity edema. Patient was noted to have hypoxia prior to arrival. Placed on nasal cannula but his oxygen saturations went into the 70s. He was placed on a non-rebreather upon transport. Related Data Home Medications Medication Instructions Recorded Confirmed acetaminophen 325 mg tablet 650 mg PO Q6H PRN fever/pain 06/06/22 06/06/22 bisacodyl 10 mg rectal suppository 10 mg FL Q3D PRN Constipation 06/06/22 06/06/22 (Dulcolax (bisacodyl)) magnesium hydroxide 400 mg/5 mL 30 ml PO DAILY PRN Constipation 06/06/22 06/06/22 oral suspension (Milk of Magnesia) sodium phosphates 19 gram-7 118 ml FL DAILY PRN Constipation 06/06/22 06/06/22 gram/118 mL enema (Fleet Enema) Previous Rx's Medication Instructions Recorded cefuroxime axetil 250 mg tablet 250 mg PO BID 10 days #20 tabs 05/28/22 finasteride 5 mg tablet 5 mg PO DAILY #30 tabs 05/28/22 tamsulosin 0.4 mg capsule 0.4 mg PO BEDTIME #30 caps 05/28/22 Allergies Allergy/AdvReac Type Severity Reaction Status Date / Time No Known Allergies Allergy Mild NONE Verified 05/24/22 15:15 [facility] Past Medical History Medical History No pertinent past medical history Surgical History No pertinent past surgical history Social History Social History Household Members: None Housing: House Do you presently have visiting nurse or other home services: No Patient Tobacco Use Status: Former Tobacco user Quit Date: 30 years ago Tobacco use type: Cigarette Smoked in Last 30 Days: No e-Cigarette/Vaping Use: Never Used Second Hand Smoke Exposure: No Use of substances other than those prescribed or required for medical reasons: No Advance Directives: Yes Advance Directives Information Provided: No Advance Directives on File: No service: No Physical Exam ED Vital Signs: Vital Signs - 24 hr 06/06/22 12:06 06/06/22 12:12 06/06/22 12:12 Temperature Pulse Rate 64 64 64 Respiratory Rate 15 20 20 Blood Pressure 151/71 H 151/71 H 151/71 H Pulse Oximetry 93 93 93 Oxygen Delivery Method Room Air Non-Rebreather Mask Non-Rebreather Mask Oxygen Flow Rate 8 06/06/22 14:06 06/06/22 15:25 06/06/22 15:35 Temperature 94.3 F L 94.6 F L Pulse Rate 66 Respiratory Rate 26 H Blood Pressure 139/67 147/63 H Pulse Oximetry 93 Oxygen Delivery Method Non-Rebreather Mask Oxygen Flow Rate BMI result Body Mass Index 29.9 GEN: Well developed, no acute distress, alert, oriented HEENT: Normocephalic, atraumatic, normal external ears, nose appears normal, no oropharyngeal edema or exudates Eyes: Normal to appearance Neck: Supple, no lymphadenopathy Respiratory: Conversational dyspnea, bibasilar mild crackles Cardiovascular: Regular rate and rhythm, no murmurs rubs or gallops Abdomen: Soft, nontender, nondistended, no guarding, no rebound Back: No CVA tenderness Extremities: No clubbing cyanosis trace edema right lower extremity Neurologic: No focal neurologic deficits, cranial nerves 2-12 intact, strength is 5/5 bilaterally, gait normal Skin: No rash Course Course Course Narrative: A 7-year-old male presents with shortness of breath, hypoxia, generalized weakness. Patient had recent hospitalization. Suction saturation on nasal henrietta dorene drop into the 70s. He is currently on a non-rebreather. Suspect his SIRS/sepsis at this time. Waiting some data to return. Possible patient may benefit from BiPAP. Would consider broad-spectrum antibiotics and MRSA coverage pending further data collection. Reevaluation(s) Reevaluation #1: ABG is return. He is not acidemic or alkalotic. His PaCO2 is 34. His oxygen in this 66. At this point it appears to be an oxygen exchange issue as opposed to initiate would benefit from supplemental respiratory support. Patient is also noted to be hypothermic. We placed on a warming blanket. At this point, I am going initiate a sepsis alert given the hypothermia, evidence hypoxic respiratory failure, hypothermia. Will initiate broad-spectrum antibiotics. Time: 14:21 Reevaluation #2: patient remains on NRB and hypothermic despite being on Lindsay Hugger continuously. He has received ABX. CT without PE. Time: 16:20 Reevaluation #3: reviewed case with Dr. Bower, recommends tele admission. Consider albumin and treatment for possible CHF. Time: 16:42 Medications Administered Discontinued Medications Generic Name Dose Route Start Last Admin Trade Name Freq PRN Reason Stop Dose Admin Cefepime HCl 1 gm/ Sodium 50 mls @ 100 mls/hr 06/06/22 14:21 06/06/22 16:09 Chloride IV 06/06/22 14:50 Infused ONCE ONE Infusion Vancomycin HCl 2,000 mg in 500 mls @ 250 mls/hr 06/06/22 14:30 06/06/22 16:12 Vancomycin/Ns IV 06/06/22 16:29 250 mls/hr ONCE ONE Administration Iohexol 65 ml 06/06/22 15:08 06/06/22 15:09 Iohexol 350 Mg/Ml 75 Ml Infus..Btl IV 06/06/22 15:09 65 ml ONCE ONE Administration Medical Decision Making Medical Decision Making [facility] Narrative: 87-year-old male presents with shortness of breath, generalized weakness and the scope of a recent hospitalization. He is hypothermic at this time. He is normotensive. He is hypoxic. White blood cell count prior to arrival was [place] to be in [place] [id number] range. Broad differential diagnosis will be considered at this time Differential Diagnosis Differential Diagnoses: The differential diagnosis associated with the presentation includes (Sepsis, pneumonia, UTI, generalized weakness, pulmonary embolus) hypoxia, hypothermia, likely sepsis Admission/Observation Consideration of admission/observation: Escalation of care including admission/o bservation considered Lab Data [facility] Lab Attestation statement: I reviewed the patient's lab results. 06/06/22 13:56 06/06/22 13:56 Labs: Lab Results 06/06/22 06/06/22 06/06/22 Range/Units 13:55 13:56 13:56 WBC 14.1 H (4.8-10.8) X10*3/uL RBC 4.76 (4.60-5.80) X10*6/uL Hgb 13.3 L (14.0-18.0) g/dl Hct 41.9 L (42.0-52.0) % MCV 88.0 (80.0-98.0) fL MCH 27.9 (27.0-33.0) pg MCHC 31.7 (31.0-36.0) g/dl RDW 14.2 (11.0-16.0) % Plt Count 303 (160-400) X10*3/uL MPV 9.8 (9.4-12.4) fL Immature Gran % (Auto) 0.5 H (0.0-0.4) % Neut % (Auto) 84.9 H (45-73) % Lymph % (Auto) 6.4 L (20-40) % [place] % (Auto) 8.0 (2-11) % Eos % (Auto) 0.0 (0-4) % Baso % (Auto) 0.2 (0-2) % Lymph # (Auto) 0.9 L (1.2-4.9) X10*3/uL [place] # (Auto) 1.1 (0.1-1.2) X10*3/uL Eos # (Auto) 0.0 (0.0-0.4) X10*3/uL Baso # (Auto) 0.0 (0.0-0.2) X10*3/uL Abs Immat Gran (auto) 0.07 H (0.00-0.03) X10*3/uL Absolute Neuts (auto) 12.0 H (2.0-8.3) x10*3/uL Absolute Nucleated RBC 0.000 (0.0-0.012) X10*3/uL Nucleated RBC % (auto) 0.0 (0.0-0.2) /100WBC O2 Saturation % ABG pH at Pt Temp (7.35-7.45) ABG pCO2 at Pt Temp (32-45) mmHg ABG pO2 at Pt Temp (83-108) mmHg ABG HCO3 (22-26) mmol/L ABG Base Excess (Actual) mmol/L Sodium (135-145) mmol/L Potassium (3.3-5.1) mmol/L Chloride (96-108) mmol/L Carbon Dioxide (22-29) mmol/L Anion Gap (12-20) BUN (9-16) mg/dL Creatinine (0.5-1.4) mg/dL Estim Creat Clear Calc Estimated GFR Random Glucose (60-115) mg/dL Lactic Acid 1.3 (0.5-2.0) mmol/L Calcium (8.4-10.2) mg/dL Total Bilirubin (0.0-1.0) mg/dL AST (5-37) U/L ALT (0-40) U/L Alkaline Phosphatase (39-117) U/L B-Natriuretic Peptide 87 (<100) pg/mL Total Protein (6.5-8.0) g/dL Albumin (3.5-5.0) g/dL COVID-19 ([facility]) (Negative) COVID-19 Clin Com 06/06/22 06/06/22 06/06/22 Range/Units 13:58 14:08 14:49 WBC (4.8-10.8) X10*3/uL RBC (4.60-5.80) X10*6/uL Hgb (14.0-18.0) g/dl Hct (42.0-52.0) % MCV (80.0-98.0) fL MCH (27.0-33.0) pg MCHC (31.0-36.0) g/dl RDW (11.0-16.0) % Plt Count (160-400) X10*3/uL MPV (9.4-12.4) fL Immature Gran % (Auto) (0.0-0.4) % Neut % (Auto) (45-73) % Lymph % (Auto) (20-40) % [place] % (Auto) (2-11) % Eos % (Auto) (0-4) % Baso % (Auto) (0-2) % Lymph # (Auto) (1.2-4.9) X10*3/uL [place] # (Auto) (0.1-1.2) X10*3/uL Eos # (Auto) (0.0-0.4) X10*3/uL Baso # (Auto) (0.0-0.2) X10*3/uL Abs Immat Gran (auto) (0.00-0.03) X10*3/uL Absolute Neuts (auto) (2.0-8.3) x10*3/uL Absolute Nucleated RBC (0.0-0.012) X10*3/uL Nucleated RBC % (auto) (0.0-0.2) /100WBC O2 Saturation 89.0 % ABG pH at Pt Temp 7.46 H (7.35-7.45) ABG pCO2 at Pt Temp 34 (32-45) mmHg ABG pO2 at Pt Temp 66 L (83-108) mmHg ABG HCO3 24 (22-26) mmol/L ABG Base Excess (Actual) 1.1 mmol/L Sodium 140 (135-145) mmol/L Potassium 4.3 (3.3-5.1) mmol/L Chloride 105 (96-108) mmol/L Carbon Dioxide 24 (22-29) mmol/L Anion Gap 15 (12-20) BUN 15 (9-16) mg/dL Creatinine 0.76 (0.5-1.4) mg/dL Estim Creat Clear Calc 93.6 Estimated GFR > 60 Random Glucose 101 (60-115) mg/dL Lactic Acid (0.5-2.0) mmol/L Calcium 8.4 (8.4-10.2) mg/dL Total Bilirubin 1.0 (0.0-1.0) mg/dL AST 16 (5-37) U/L ALT 9 (0-40) U/L Alkaline Phosphatase 130 H (39-117) U/L B-Natriuretic Peptide (<100) pg/mL Total Protein 5.9 L (6.5-8.0) g/dL Albumin 2.9 L (3.5-5.0) g/dL COVID-19 ([facility]) Negative (Negative) COVID-19 Clin Com See Note Independent Interpretation I performed an independent interpretation of an: EKG (Normal sinus rhythm heart rate 62, nonspecific T-wave changes, no acute ST elevations depressions, slightly prolonged QTC), Plain X-Ray (Increased interstitial markings) and CT Scan (No large pulmonary embolus, diffuse airway disease, pleural effusion) Radiology Impression Discussion of test interpretation with radiology: I have reviewed the radiologist's reading. ( XR/XR chest 1V IMPRESSION: Diffuse mixed interstitial and airspace disease increased from 05/26/2022 exam.Different ial would include atypical interstitial pneumonia such as viral pneumonia, interstitial lung disease with acute alveolitis, pulmonary edema, aspiration and pulmonary ) Radiologist Impression: CT/CT angio chest PE protocol IMPRESSION: No evidence of pulmonary embolism. The pulmonary arteries are enlarged. Diffuse interstitial and airspace disease. This is increasing compared to chest x-ray from earlier this month. Enlarged diffuse mediastinal and bilateral hilar lymphadenopathy. Small bilateral pleural effusions. Infectious or inflammatory process is favored. In particular, viral pneumonia, ARDS, and aspiration should be considered. Differential would include pulmonary edema and pulmonary hemorrhage and interstitial lung disease with acute alveolitis. ? VTE: negative US/US venous duplex LE BI IMPRESSION: No DVT demonstrated in the bilateral lower extremity. Dictated By: Kendra Ryder MD Signed By: <Electronically signed by Kendra Ryder MD in OV> 06/06/22 1618 Independent Historian Clinical information obtained from an independent historian. History obtained from or confirmed by: Other (Paperwork from custodial) External Record Review External record reviewed: Outpatient record Prescription Management I considered prescription management with: Antibiotic Critical Care Time Critical Care Time Total Critical Care Time: 40 Attestation: Critical care time performed in approximately 40 minutes with bedside assessment, communication with family and other providers, review of medical records, documentation, and interpretation of medical data on all outside of procedures. Discharge Plan Discharge Clinical Impression: Hypoxemia, Hypothermia Patient Disposition: Admitted As Inpatient
[2022-06-06 14:15] LABS: Lactic Acid 1.3 mmol/L (0.5-2.0)
[2022-06-06 14:16] LABS: COVID-19 Test Negative (Negative); IDNOW Serial# 9DB6401D
[2022-06-06 14:18] LABS: ABG Base Excess 1.1 mmol/L; ABG HCO3 24 mmol/L (22-26); ABG pCO2 34 mmHg (32-45); ABG pH 7.46 (7.35-7.45); ABG pO2 66 mmHg (83-108)
[2022-06-06 14:24] LABS: B Type Natriuretic Peptide 87 pg/mL (<100)
--- NOTE | 2022-06-06 14:49 | PHA.MEDREC ---
Pharmacy Consult ? Medication Reconciliation Pharmacy has completed the medication reconciliation.pt from norma armstrong
[2022-06-06] MEDS: iohexoL 350 MG/ML 75 ML INFUS..BTL 65 ML IV (15:09)
[2022-06-06] MEDS: cefEPime HCl 1 GM in 0.9 % Sodium Chloride 50 ML IV (15:28)
[2022-06-06 15:50] LABS: Alanine Aminotransferase 9 U/L (0-40); Albumin Level 2.9 g/dL (3.5-5.0); Alkaline Phosphatase 130 U/L (39-117); Anion Gap 15 (12-20); Aspartate Amino Transferase 16 U/L (5-37); Blood Urea Nitrogen 15 mg/dL (9-16); Calcium 8.4 mg/dL (8.4-10.2); Carbon Dioxide 24 mmol/L (22-29); Chloride 105 mmol/L (96-108); Creatinine Clr Calc Pharmacy 93.6; Estimated Glomerular Filt Rate > 60; Glucose Random 101 mg/dL (60-115); Potassium 4.3 mmol/L (3.3-5.1); Sodium 140 mmol/L (135-145); Total Protein 5.9 g/dL (6.5-8.0)
[2022-06-06] MEDS: vancomycin/NS 2,000 MG/500 ML PLAST..BAG 250 MG IV (16:12)
--- NOTE | 2022-06-06 16:57 | P.HPHOSP_ITS ---
History of Present Illness Date of Service: 06/06/22 Chief Complaint: sob 87M PMH BPH, ILD, with recent admission for sepsis due to UTI presented from SNF with sob. patient reports feeling unwell last few days, shortness of breath, fatigue. denies othropnea, chest pain, fever, abd pain or diarrhea. noted to be hypoxic and with hematuria. in ED requiring NRB, CT chest with ILD, hypothermic. Review of Systems Review of Systems: Yes all other systems are reviewed and are negative COUNTS INCLUDE 234 BEDS AT THE [facility] Medical History No pertinent past medical history Surgical History No pertinent past surgical history Social History Household Members: None Housing: House Do you presently have visiting nurse or other home services: No Patient Tobacco Use Status: Former Tobacco user Quit Date: 30 years ago Tobacco use type: Cigarette Smoked in Last 30 Days: No e-Cigarette/Vaping Use: Never Used Second Hand Smoke Exposure: No Use of substances other than those prescribed or required for medical reasons: No Advance Directives: Yes Advance Directives Information Provided: No Advance Directives on File: No service: No Meds Allergies Allergy/AdvReac Type Severity Reaction Status Date / Time No Known Allergies Allergy Mild NONE Verified 05/24/22 15:15 Active Medications: Current Medications Acetaminophen (Acetaminophen 325 Mg Tablet) 650 mg PO Q6H PRN PRN Reason: fever/pain Finasteride (Finasteride 5 Mg Tablet) 5 mg PO DAILY [facility] Vancomycin HCl 1,000 mg/ (Sodium Chloride) 270 mls @ 270 mls/hr IV Q12H [facility] Piperacillin Sod/Tazobactam (Sod 3.375 gm/ Sodium Chloride) 50 mls @ 100 mls/hr IV Q6H [facility] Methylprednisolone Sodium Succinate (Methylprednisolone Sod Succ 40 Mg/Ml Vial) 40 mg IVPUSH Q12H [facility] Pharmacy Consult (Consult Rx Perform Med Rec) 1 each MISCELLANE ONCE PRN PRN Reason: Consult order Pharmacy Consult (Consult Rx Vancomycin Dosing) 1 each MISCELLANE DAILY PRN PRN Reason: Consult order Tamsulosin HCl (Tamsulosin Hcl 0.4 Mg Capsule) 0.4 mg PO BEDTIME [facility] Home Medications Medication Instructions Recorded Confirmed Last Taken Type acetaminophen 325 mg tablet 650 mg PO Q6H PRN fever/pain 06/06/22 06/06/22 U nknown History bisacodyl 10 mg rectal suppository 10 mg ND Q3D PRN Constipation 06/06/22 06/06/22 Unknown History (Dulcolax (bisacodyl)) magnesium hydroxide 400 mg/5 mL 30 ml PO DAILY PRN Constipation 06/06/22 06/06/22 Unknown History oral suspension (Milk of Magnesia) sodium phosphates 19 gram-7 118 ml ND DAILY PRN Constipation 06/06/22 06/06/22 Unknown History gram/118 mL enema (Fleet Enema) Physical Exam Vital Signs and Narrative: Vital Signs: Last Vital Signs Temp 94.6 F L 06/06/22 15:35 Pulse 66 06/06/22 14:06 Resp 26 H 06/06/22 14:06 BP 147/63 H 06/06/22 15:25 Pulse Ox 93 06/06/22 14:06 O2 Del Method Non-Rebreather [facility] 06/06/22 14:06 O2 Flow Rate 8 06/06/22 12:12 Oxygen Flow Rate 8 06/06/22 12:12 BMI result Body Mass Index 29.9 General: AO X 3, ill appearing, tachypenic Resp: Crackles bilateral, accessory muscles used CVS: S1,S2,RRR GI: soft, non tender, non distended Neuro: motor grossly intact, alert Psych: appropriate affect, appropriate insight Results Labs 06/06/22 13:56 06/06/22 14:49 Labs: Laboratory Results - last 24 hr 06/06/22 06/06/22 06/06/22 13:55 13:56 13:56 MCV 88.0 MCH 27.9 MCHC 31.7 RDW 14.2 Plt Count 303 MPV 9.8 Immature Gran % (Auto) 0.5 H Neut % (Auto) 84.9 H Lymph % (Auto) 6.4 L [place] % (Auto) 8.0 Eos % (Auto) 0.0 Baso % (Auto) 0.2 Lymph # (Auto) 0.9 L [place] # (Auto) 1.1 Eos # (Auto) 0.0 Baso # (Auto) 0.0 Abs Immat Gran (auto) 0.07 H Absolute Neuts (auto) 12.0 H Absolute Nucleated RBC 0.000 Nucleated RBC % (auto) 0.0 O2 Saturation ABG pH at Pt Temp ABG pCO2 at Pt Temp ABG pO2 at Pt Temp ABG HCO3 ABG Base Excess (Actual) Anion Gap Estim Creat Clear Calc Estimated GFR Random Glucose Lactic Acid 1.3 Calcium Total Bilirubin AST ALT Alkaline Phosphatase B-Natriuretic Peptide 87 Total Protein Albumin COVID-19 ([facility]) COVID-19 Clin Com 06/06/22 06/06/22 06/06/22 13:58 14:08 14:49 MCV MCH MCHC RDW Plt Count MPV Immature Gran % (Auto) Neut % (Auto) Lymph % (Auto) [place] % (Auto) Eos % (Auto) Baso % (Auto) Lymph # (Auto) [place] # (Auto) Eos # (Auto) Baso # (Auto) Abs Immat Gran (auto) Absolute Neuts (auto) Absolute Nucleated RBC Nucleated RBC % (auto) O2 Saturation 89.0 ABG pH at Pt Temp 7.46 H ABG pCO2 at Pt Temp 34 ABG pO2 at Pt Temp 66 L ABG HCO3 24 ABG Base Excess (Actual) 1.1 Anion Gap 15 Estim Creat Clear Calc 93.6 Estimated GFR > 60 Random Glucose 101 Lactic Acid Calcium 8.4 Total Bilirubin 1.0 AST 16 ALT 9 Alkaline Phosphatase 130 H B-Natriuretic Peptide Total Protein 5.9 L Albumin 2.9 L COVID-19 ([facility]) Negative COVID-19 Clin Com See Note Imaging Radiologist's Impressions: Impressions Chest X-Ray 06/06/22 14:35 IMPRESSION: Diffuse mixed interstitial and airspace disease increased from 05/26/2022 exam.Differential would include atypical interstitial pneumonia such as viral pneumonia, interstitial lung disease with acute alveolitis, pulmonary edema, aspiration and pulmonary hemorrhage. Chest CTA 06/06/22 15:20 IMPRESSION: No evidence of pulmonary embolism. The pulmonary arteries are enlarged. Diffuse interstitial and airspace disease. This is increasing compared to chest x-ray from earlier this month. Enlarged diffuse mediastinal and bilateral hilar lymphadenopathy. Small bilateral pleural effusions. Infectious or inflammatory process is favored. In particular, viral pneumonia, ARDS, and aspiration should be considered. Differential would include pulmonary edema and pulmonary hemorrhage and interstitial lung disease with acute alveolitis. VTE: negative Venous Duplex 06/06/22 15:30 IMPRESSION: No DVT demonstrated in the bilateral lower extremity. Assessment and Plan (1) Hypoxemia: Status: Acute Plan 87M PMH ILD, BPH presented with sob Severe sepsis complicated by acute hypoxic respiratory failure complicated by ILD with acute decompensation Possible sources include urinary and pneumonia Empiric broad-spectrum antibiotics with vancomycin Zosyn Follow-up cultures Check bladder scans for urinary retention Follow-up respiratory viral panel IV steroids BPH Proscar and Flomax DVT prophylaxis with Lovenox Full code Patient appearing ill, requiring non-rebreather to maintain oxygen, therefore, expected to require atleast 2 midnights inpatient Time Spent With Patient Time: Total time managing care of this patient today ____ minutes. Quality Stroke Does the patient have a stroke diagnosis?: No VTE Prior VTE?: No VTE Risk Level:: Medical - moderate - high VTE Device Contraindication: Treatment Not Indicated VTE Drug Contraindication: N/A - Med Ordered
[2022-06-06] MEDS: methylPREDNISolone Sod Succ 40 MG/ML VIAL IVPUSH (17:21)
[2022-06-06 17:36] LABS: Appearance Urine Cloudy; Color Urine BROWN; Glucose Urine UA Negative (Negative); Leukocyte Esterase Urine Small (1+) (Negative); Nitrite Urine Positive (Negative); PH 5.5 (5.0-9.0); UMIC TRIGGER UACC YES; Urine Blood Large (3+) (Negative); Urine Ketones Trace mg/dL (Negative); Urine Protein 100 (2+) mg/dL (Neg-Trace)
[2022-06-06 17:58] LABS: Bacteria Urine 1+ (None Seen); Hyaline Casts Urine 0-2 /LPF (0-2); RBC Urine >20 /HPF (0-2); Squamous Epithelial Cell Urine 0-2 /HPF (0-2); UACC Culture Trigger YES; WBC Urine >50 /HPF (0-5)
[2022-06-06] MEDS: Piperacillin Sodium/Tazobactam 3.375 GM in 0.9 % Sodium Chloride 50 ML IV ×2 (18:47→23:16)
[2022-06-06] MEDS: 0.9 % Sodium Chloride Flush 3 ML SYRINGE IVFLUSH (20:59)
[2022-06-06] MEDS: Tamsulosin HCL 0.4 MG CAPSULE PO (20:59)
[2022-06-07] VITALS (10 sets, daily range): BP systolic 98–141; BP diastolic 49–66; PULSE 65–88; RESP 18–20; TEMP 35.6–36.7; O2SAT 89–96
[2022-06-07 01:13] LABS: ABG Refer to POC result
[2022-06-07] MEDS: methylPREDNISolone Sod Succ 40 MG/ML VIAL IVPUSH ×3 (05:32→22:02)
[2022-06-07] MEDS: Piperacillin Sodium/Tazobactam 3.375 GM in 0.9 % Sodium Chloride 50 ML IV ×3 (05:33→17:39)
[2022-06-07 07:15] LABS: Hematocrit 37.7 % (42.0-52.0); Mean Corpuscular HGB Conc 31.8 g/dl (31.0-36.0); Mean Corpuscular Hemoglobin 27.6 pg (27.0-33.0); Mean Corpuscular Volume 86.7 fL (80.0-98.0); Mean Platelet Volume 10.1 fL (9.4-12.4); Platelet Count 286 X10*3/uL (160-400); Red Blood Count 4.35 X10*6/uL (4.60-5.80); White Blood Count 10.6 X10*3/uL (4.8-10.8)
[2022-06-07 07:46] LABS: Alanine Aminotransferase 8 U/L (0-40); Albumin Level 2.8 g/dL (3.5-5.0); Alkaline Phosphatase 123 U/L (39-117); Anion Gap 13 (12-20); Aspartate Amino Transferase 16 U/L (5-37); Bilirubin Direct 0.4 mg/dL (0.0-0.5); Bilirubin Total 1.1 mg/dL (0.0-1.0); Blood Urea Nitrogen 18 mg/dL (9-16); Calcium 8.5 mg/dL (8.4-10.2); Carbon Dioxide 25 mmol/L (22-29); Chloride 107 mmol/L (96-108); Creatinine Clr Calc Pharmacy 84.7; Estimated Glomerular Filt Rate > 60; Glucose Fasting 125 mg/dL (60-99); Glucose Random 124 mg/dL (60-115); Sodium 140 mmol/L (135-145); Total Protein 5.7 g/dL (6.5-8.0)
--- NOTE | 2022-06-07 09:01 | MHC.CM.PN ---
IMM 06/07. Pt admitted with sepsis. D/C plan, once medically cleared will likely return to [facility] where he was receiving STR. Pt requires assistance and uses a w/c. Will use BLS for transport. HCP is on file and verified as pts laith Hopper. PCP: Dr. Lewis Hanson. Vax: x 3.
[2022-06-07] MEDS: Enoxaparin Sodium 40 MG/0.4 ML SYRINGE SUBCUT (09:36)
[2022-06-07] MEDS: Finasteride 5 MG TABLET PO (09:36)
--- NOTE | 2022-06-07 11:29 | P.PNIM_ITS ---
Subjective Subjective Date of Service: 06/07/22 Interval History: denied complaints despite severe hypoxia when taking off mask to eat Physical Exam Vital Signs: Vital Signs: Last Vital Signs Temp 97.8 F 06/07/22 11:21 Pulse 84 06/07/22 11:21 Resp 20 06/07/22 11:21 BP 141/65 H 06/07/22 11:21 Pulse Ox 93 06/07/22 11:21 O2 Del Method Non-Rebreather Ma sk 06/07/22 11:21 O2 Flow Rate 14 06/07/22 11:21 Oxygen Flow Rate 8 06/06/22 12:12 BMI result Body Mass Index 29.9 saw patient after he took of NRB to eat appeared comfortable but cyanotic, alert, crackles bilateral recovered after replacing NRB Objective Data Active Medications Acetaminophen (Acetaminophen 325 Mg Tablet) 650 mg PO Q6H PRN PRN Reason: fever/pain Enoxaparin Sodium (Enoxaparin Sodium 40 Mg/0.4 Ml Syringe) 40 mg SUBCUT Q24H [facility] Last Admin: 06/07/22 09:36 Dose: 40 mg Documented By: LUZMARIA Finasteride (Finasteride 5 Mg Tablet) 5 mg PO DAILY [facility] Last Admin: 06/07/22 09:36 Dose: 5 mg Documented By: LUZMARIA Piperacillin Sod/Tazobactam (Sod 3.375 gm/ Sodium Chloride) 50 mls @ 100 mls/hr IV Q6H [facility] Last Infusion: 06/07/22 06:14 Dose: 0 mls/hr Documented By: JAYNA Vancomycin HCl 1,500 mg/ (Sodium Chloride) 500 mls @ 333.333 mls/hr IV Q24H [facility] Methylprednisolone Sodium Succinate (Methylprednisolone Sod Succ 40 Mg/Ml Vial) 40 mg IVPUSH Q12H [facility] Last Admin: 06/07/22 05:32 Dose: 40 mg Documented By: JAYNA Pharmacy Consult (Consult Rx Perform Med Rec) 1 each MISCELLANE ONCE PRN PRN Reason: Consult order Pharmacy Consult (Consult Rx Vancomycin Dosing) 1 each MISCELLANE DAILY PRN PRN Reason: Consult order Sodium Chloride (0.9 % Sodium Chloride Flush 3 Ml Syringe) 3 ml IVFLUSH QSHIFT [facility] Last Admin: 06/07/22 07:32 Dose: Not Given Documented By: LUZMARIA Non-Admin Reason: See Note Tamsulosin HCl (Tamsulosin Hcl 0.4 Mg Capsule) 0.4 mg PO BEDTIME [facility] Last Admin: 06/06/22 20:59 Dose: 0.4 mg Documented By: JAYNA Labs 06/07/22 06:44 06/07/22 06:44 Labs: Laboratory Results - last 24 hr 06/06/22 06/06/22 06/06/22 13:55 13:56 13:56 MCV 88.0 MCH 27.9 MCHC 31.7 RDW 14.2 Plt Count 303 MPV 9.8 Immature Gran % (Auto) 0.5 H Neut % (Auto) 84.9 H Lymph % (Auto) 6.4 L [place] % (Auto) 8.0 Eos % (Auto) 0.0 Baso % (Auto) 0.2 Lymph # (Auto) 0.9 L [place] # (Auto) 1.1 Eos # (Auto) 0.0 Baso # (Auto) 0.0 Abs Immat Gran (auto) 0.07 H Absolute Neuts (auto) 12.0 H Absolute Nucleated RBC 0.000 Nucleated RBC % (auto) 0.0 O2 Saturation ABG pH at Pt Temp ABG pCO2 at Pt Temp ABG pO2 at Pt Temp ABG HCO3 ABG Base Excess (Actual) Anion Gap Estim Creat Clear Calc Estimated GFR Random Glucose Fasting Glucose Lactic Acid 1.3 Calcium Magnesium Total Bilirubin Direct Bilirubin AST ALT Alkaline Phosphatase B-Natriuretic Peptide 87 Total Protein Albumin Urine Color Urine Appearance Urine pH Ur Specific [place] Urine Protein Urine Glucose (UA) Urine Ketones Urine Blood Urine Nitrite Ur Leukocyte Esterase Urine RBC Urine WBC Ur Squamous Epith Cells Urine Bacteria Hyaline Casts Urine Yeast COVID-19 ([facility]) COVID-19 Clin Com 06/06/22 06/06/22 06/06/22 13:58 14:08 14:49 MCV MCH MCHC RDW Plt Count MPV Immature Gran % (Auto) Neut % (Auto) Lymph % (Auto) [place] % (Auto) Eos % (Auto) Baso % (Auto) Lymph # (Auto) [place] # (Auto) Eos # (Auto) Baso # (Auto) Abs Immat Gran (auto) Absolute Neuts (auto) Absolute Nucleated RBC Nucleated RBC % (auto) O2 Saturation 89.0 ABG pH at Pt Temp 7.46 H ABG pCO2 at Pt Temp 34 ABG pO2 at Pt Temp 66 L ABG HCO3 24 ABG Base Excess (Actual) 1.1 Anion Gap 15 Estim Creat Clear Calc 93.6 Estimated GFR > 60 Random Glucose 101 Fasting Glucose Lactic Acid Calcium 8.4 Magnesium Total Bilirubin 1.0 Direct Bilirubin AST 16 ALT 9 Alkaline Phosphatase 130 H B-Natriuretic Peptide Total Protein 5.9 L Albumin 2.9 L Urine Color Urine Appearance Urine pH Ur Specific [place] Urine Protein Urine Glucose (UA) Urine Ketones Urine Blood Urine Nitrite Ur Leukocyte Esterase Urine RBC Urine WBC Ur Squamous Epith Cells Urine Bacteria Hyaline Casts Urine Yeast COVID-19 ([facility]) Negative COVID-19 Clin Com See Note 06/06/22 06/07/22 06/07/22 17:30 06:44 06:44 MCV 86.7 MCH 27.6 MCHC 31.8 RDW 14.0 Plt Count 286 MPV 10.1 Immature Gran % (Auto) Neut % (Auto) Lymph % (Auto) [place] % (Auto) Eos % (Auto) Baso % (Auto) Lymph # (Auto) [place] # (Auto) Eos # (Auto) Baso # (Auto) Abs Immat Gran (auto) Absolute Neuts (auto) Absolute Nucleated RBC 0.000 Nucleated RBC % (auto) 0.0 O2 Saturation ABG pH at Pt Temp ABG pCO2 at Pt Temp ABG pO2 at Pt Temp ABG HCO3 ABG Base Excess (Actual) Anion Gap 13 Estim Creat Clear Calc 84.7 Estimated GFR > 60 Random Glucose 124 H Fasting Glucose 125 H Lactic Acid Calcium 8.5 Magnesium 2.0 Total Bilirubin 1.1 H Direct Bilirubin 0.4 AST 16 ALT 8 Alkaline Phosphatase 123 H B-Natriuretic Peptide Total Protein 5.7 L Albumin 2.8 L Urine Color BROWN Urine Appearance Cloudy Urine pH 5.5 Ur Specific [place] 1.020 Urine Protein 100 (2+) H Urine Glucose (UA) Negative Urine Ketones Trace Urine Blood Large (3+) H Urine Nitrite Positive H Ur Leukocyte Esterase Small (1+) H Urine RBC >20 H Urine WBC >50 H Ur Squamous Epith Cells 0-2 Urine Bacteria 1+ Hyaline Casts 0-2 Urine Yeast Present COVID-19 ([facility]) COVID-19 Clin Com Microbiology Microbiology Results: Microbiology 04/17/23 17:59 Urine Culture - Preliminary Urine Catheterized - Cotton Catheter Enterococcus/Streptococcus sp Assessment and Plan (1) Hypoxemia: Status: Acute Plan 87M PMH ILD, BPH presented with sob Severe sepsis complicated by acute hypoxic respiratory failure complicated by ILD with acute decompensation Possible sources include urinary and pneumonia Empiric broad-spectrum antibiotics with vancomycin Zosyn urine growing strep Check bladder scans for urinary retention Follow-up respiratory viral panel IV steroids pulm eval BPH Proscar and Flomax DVT prophylaxis with Lovenox Full code reason for continued hospitalization:severe hypoxia requiring high levels o2 Time Spent With Patient Time: Total time managing care of this patient today ____ minutes. Quality Stroke Does the patient have a stroke diagnosis?: No VTE Prior VTE?: No VTE Risk Level:: Medical - moderate - high VTE Device Contraindication: Treatment Not Indicated VTE Drug Contraindication: N/A - Med Ordered
[2022-06-07 11:50] LABS: Adenovirus PCR Not Detected (Not Detect.); Bordetella parapertussis PCR Not Detected (Not Detect.); Bordetella pertussis PCR Not Detected (Not Detect.); Chlamydia pneumoniae PCR Not Detected (Not Detect.); Coronavirus 229E PCR Not Detected (Not Detect.); Coronavirus HKU1 PCR Not Detected (Not Detect.); Coronavirus NL63 PCR Not Detected (Not Detect.); Coronavirus OC43 PCR Not Detected (Not Detect.); Human metapneumovirus PCR Not Detected (Not Detect.); Influenza A PCR Not Detected (Not Detect.); Influenza B PCR Not Detected (Not Detect.); Mycoplasma pneumoniae PCR Not Detected (Not Detect.); Parainfluenza 1 PCR Not Detected (Not Detect.); Parainfluenza 2 PCR Not Detected (Not Detect.); Parainfluenza 3 PCR Not Detected (Not Detect.); Parainfluenza 4 PCR Not Detected (Not Detect.); RSV PCR Not Detected (Not Detect.); Rhino/Enterovirus PCR Not Detected (Not Detect.); SARS-CoV-2 PCR Not Detected (Not Detect.)
--- NOTE | 2022-06-07 13:48 | PC.NURSE ---
Pt desat to 80% this AMd/t pt removing nonrebreather to eat bfast. cont O2 placed and O2 mask placed back on, pt slowly increased to 96%. MD informed. Pt lung soungs crackly. pt had no c/o resp distress or diff breathing. Around 1300 pt was attempting to eat, desat to 79% while on O2, md and RT informed. High flow started 60%/55L per RT
--- NOTE | 2022-06-07 14:49 | PM.CNPUL ---
History of Present Illness History of Present Illness Consult date: 06/07/22 Reason for consult: dyspnea, cough and hypoxemia Chief complaint: Sepsis Narrative: PULMONARY CONSULTATION : I have examined this 87 years old gentleman and reviewed his records, this afternoon. He is not a good historian. His main complaint being shortness of breath and requiring high concentration of oxygen. He was initially admitted on 05/24, with evidence of urosepsis, secondary to enlarged prostate, He was treated with IV antibiotics , and had significant hypoxemia which was treated with oxygen supplement. Patient had not given any history of any chronic lung disease, but CT of the abdomen did show presence of interstitial lung disease in the lung bases. After treating UTI , he was discharged on 05/28/22 to [facility] facility. Now he is readmitted with increased shortness of breath, and again has evidence of urinary tract infection, CT scan of the chest is grossly abnormal. This gentleman is not able to give any details of his past medical history, And up until his recent hospitalization he has not required any oxygen are any respiratory meds. I presume that he has not been aware of any serious respiratory disease . He has remote history of smoking but quit about 30 years ago. He does not have history of any occupational exposures or working in any jenni condition. Review of Systems Review of Systems: Yes Unobtainable due to mental status PMFSH Past Medical History Medical History (Updated 06/07/22 @ 15:00 by Mu Parnell MD) ILD (interstitial lung disease) No pertinent past medical history Respiratory failure with hypoxia Surgical History Surgical History No pertinent past surgical history Social History Social History Household Members: Other Household Members Other:: Patient resides @ [facility] Housing: [facility] Do you presently have visiting nurse or other home services: Yes Patient Tobacco Use Status: Former Tobacco user Quit Date: 30 years ago Tobacco use type: Cigarette Smoked in Last 30 Days: No e-Cigarette/Vaping Use: Never Used Second Hand Smoke Exposure: No Use of substances other than those prescribed or required for medical reasons: No Currently Displaying Signs/Symptoms of Drug Intoxication Withdrawal: No Have you been hit, kicked, punched, or otherwise hurt by someone within the past year? If so, by whom?: No Do you feel safe in your current relationship?: No Current Relationship Is there a partner from a previous relationship who is making you feel unsafe now?: No Are you made to feel afraid or neglected: No Advance Directives: Yes Advance Directives Information Provided: No Advance Directives on File: No Advance Directives Date on File: 06/06/22 Do you have thoughts of harming others: None Do you have a plan to hurt others: No Plan Recently lost weight without trying: No Eating poorly because of decreased appetite: No Nutrition Risks: No Nutritional Risk Poor oral hygiene: No service: No Current occupational status: retired [employer] Allergies Allergy/AdvReac Type Severity Reaction Status Date / Time No Known Allergies Allergy Mild NONE Verified 05/24/22 15:15 Active Medications: Current Medications Acetaminophen (Acetaminophen 325 Mg Tablet) 650 mg PO Q6H PRN PRN Reason: fever/pain Enoxaparin Sodium (Enoxaparin Sodium 40 Mg/0.4 Ml Syringe) 40 mg SUBCUT Q24H [facility] Last Admin: 06/07/22 09:36 Dose: 40 mg Finasteride (Finasteride 5 Mg Tablet) 5 mg PO DAILY [facility] Last Admin: 06/07/22 09:36 Dose: 5 mg Piperacillin Sod/Tazobactam (Sod 3.375 gm/ Sodium Chloride) 50 mls @ 100 mls/hr IV Q6H [facility] Last Infusion: 06/07/22 12:26 Dose: Infused Vancomycin HCl 1,500 mg/ (Sodium Chloride) 500 mls @ 333.333 mls/hr IV Q24H [facility] Methylprednisolone Sodium Succinate (Methylprednisolone Sod Succ 40 Mg/Ml Vial) 40 mg IVPUSH Q8H [facility] Pharmacy Consult (Consult Rx Perform Med Rec) 1 each MISCELLANE ONCE PRN PRN Reason: Consult order Pharmacy Consult (Consult Rx Vancomycin Dosing) 1 each MISCELLANE DAILY PRN PRN Reason: Consult order Sodium Chloride (0.9 % Sodium Chloride Flush 3 Ml Syringe) 3 ml IVFLUSH QSHIFT [facility] Last Admin: 06/07/22 14:35 Dose: Not Given Tamsulosin HCl (Tamsulosin Hcl 0.4 Mg Capsule) 0.4 mg PO BEDTIME [facility] Last Admin: 06/06/22 20:59 Dose: 0.4 mg Home Medications Medication Instructions Recorded Confirmed Last Taken Type acetaminophen 325 mg tablet 650 mg PO Q6H PRN fever/pain 06/06/22 06/06/22 Unknown History bisacodyl 10 mg rectal suppository 10 mg OK Q3D PRN Constipation 06/06/22 06/06/22 Unknown History (Dulcolax (bisacodyl)) magnesium hydroxide 400 mg/5 mL 30 ml PO DAILY PRN Constipation 06/06/22 06/06/22 Unknown History oral suspension (Milk of Magnesia) sodium phosphates 19 gram-7 118 ml OK DAILY PRN Constipation 06/06/22 06/06/22 Unknown History gram/118 mL enema (Fleet Enema) Physical Exam Vital Signs: Vital Signs: Last Vital Signs Temp 97.8 F 06/07/22 11:21 Pulse 84 06/07/22 11:21 Resp 20 06/07/22 11:21 BP 141/65 H 06/07/22 11:21 Pulse Ox 93 06/07/22 11:21 O2 Del Method Non-Rebreather Ma sk 06/07/22 11:21 O2 Flow Rate 14 06/07/22 11:21 Oxygen Flow Rate 8 06/06/22 12:12 BMI result Body Mass Index 29.9 Const: General: no acute distress (But short of breath during talking.), alert and awake HEENT: Head: Yes normal to inspection General nose exam: No nasal polyps present and No nasal discharge present Face and sinus: Yes sinuses nontender Mouth: oropharynx normal Throat: Yes posterior oropharynx normal Eyes: General: appearance normal, both eyes and all related structures Neck: Neck: Yes normal visual inspection, Yes no lymphadenopathy, Yes trachea midline and Yes no JVD Thyroid: Thyroid normal Chest: Chest palpation & inspection: normal inspection of the chest and no tenderness Resp: Other: Percussion note is resonant. Breath sounds are equal on both sides but diminished over the basilar areas. Inspiratory crackles are heard over both lower lobes. No wheezes. Cardio: Palpation: normal PMI Rate: regular rate Rhythm: regular rhythm Heart sounds: no gallops and no murmurs GI: Palpation (GI): Soft to palpation, nontender, No hepatosplenomegaly present and no masses Auscultation: normal bowel sounds Back/Spine/Pelvis: Other: Not examined Skin: General skin exam: no rashes or lesions noted Neuro: General: no focal motor deficits Cranial nerves: Yes CN's II-XII intact bilaterally Extrem: General: Yes normal to inspection, Yes no clubbing, cyanosis or edema and Yes no calf tenderness Psych: Speech and movement: Normal speech and movement present Results Laboratory Findings 06/07/22 06:44 06/07/22 06:44 Abnormal lab findings: Abnormal Labs 06/06/22 06/06/22 06/06/22 13:56 14:08 14:49 WBC 14.1 H RBC Hgb 13.3 L Hct 41.9 L Immature Gran % (Auto) 0.5 H Neut % (Auto) 84.9 H Lymph % (Auto) 6.4 L Lymph # (Auto) 0.9 L Abs Immat Gran (auto) 0.07 H Absolute Neuts (auto) 12.0 H ABG pH at Pt Temp 7.46 H ABG pO2 at Pt Temp 66 L BUN Random Glucose Fasting Glucose Total Bilirubin Alkaline Phosphatase 130 H Total Protein 5.9 L Albumin 2.9 L Urine Protein Urine Blood Urine Nitrite Ur Leukocyte Esterase Urine RBC Urine WBC 06/06/22 06/07/22 06/07/22 17:30 06:44 06:44 WBC RBC 4.35 L Hgb 12.0 L Hct 37.7 L Immature Gran % (Auto) Neut % (Auto) Lymph % (Auto) Lymph # (Auto) Abs Immat Gran (auto) Absolute Neuts (auto) ABG pH at Pt Temp ABG pO2 at Pt Temp BUN 18 H Random Glucose 124 H Fasting Glucose 125 H Total Bilirubin 1.1 H Alkaline Phosphatase 123 H Total Protein 5.7 L Albumin 2.8 L Urine Protein 100 (2+) H Urine Blood Large (3+) H Urine Nitrite Positive H Ur Leukocyte Esterase Small (1+) H Urine RBC >20 H Urine WBC >50 H Microbiology: Microbiology 06/06/22 17:59 Urine Catheterized - Cotton Catheter Urine Culture - Preliminary Enterococcus/Streptococcus sp Diagnostic Findings Chest x-ray: report reviewed and image reviewed CT scan - chest: report reviewed and image reviewed Assessment and Plan (1) ILD (interstitial lung disease): Status: Acute (2) Acute UTI: Status: Acute (3) Respiratory failure with hypoxia: Status: Acute Plan This elderly patient has clinical/radiologic picture of advanced, rather end-stage pulmonary fibrosis. It may have been excessive dated with recent acute urinary tract infections/sepsis . It is surprising that the patient did not have any symptoms or knowledge of the pre-existing respiratory disease before his last admission a few weeks ago. The radiologic picture is definitely of a E long-standing chronic respiratory disease/ pulmonary fibrosis. At this time he has severe hypoxemia, due to VQ abnormalities worsened by a acute urinary tract infection. TX : IV Solu-Medrol 80 mg q.8 hours for the 1st 3 days and then slow taper. Continue antibiotics for treatment of acute infection. Oxygen supplementation to keep O2 sat above 90%, and to wean down as tolerated. Need to discuss about his prognosis is, with the family members. In future this gentleman may be candidate for palliative care. Time Spent With Patient Time: Total time managing care of this patient today ____ minutes. Procedures Date of Service Date of Service: 06/07/22
[2022-06-07] MEDS: vancomycin HCL 1,500 MG in 0.9 % Sodium Chloride 500 ML 333.33 MG IV (15:00)
[2022-06-07] MEDS: Tamsulosin HCL 0.4 MG CAPSULE PO (20:17)
[2022-06-08] VITALS (11 sets, daily range): BP systolic 113–143; BP diastolic 60–73; PULSE 59–82; RESP 15–21; TEMP 35.3–36.3; O2SAT 90–95
[2022-06-08] MEDS: Piperacillin Sodium/Tazobactam 3.375 GM in 0.9 % Sodium Chloride 50 ML IV ×5 (00:42→23:40)
[2022-06-08] MEDS: 0.9 % Sodium Chloride Flush 3 ML SYRINGE IVFLUSH ×4 (00:42→21:05)
[2022-06-08] MEDS: methylPREDNISolone Sod Succ 40 MG/ML VIAL IVPUSH (06:18)
[2022-06-08 07:24] LABS: Hematocrit 33.9 % (42.0-52.0); Hemoglobin 10.9 g/dl (14.0-18.0); Mean Corpuscular HGB Conc 32.2 g/dl (31.0-36.0); Mean Corpuscular Hemoglobin 27.9 pg (27.0-33.0); Mean Corpuscular Volume 86.9 fL (80.0-98.0); Mean Platelet Volume 10.1 fL (9.4-12.4); NRBC Pct Auto 0.1 /100WBC (0.0-0.2); Platelet Count 361 X10*3/uL (160-400); Red Cell Distribution Width 14.2 % (11.0-16.0)
[2022-06-08 08:16] LABS: Anion Gap 14 (12-20); Blood Urea Nitrogen 27 mg/dL (9-16); Calcium 8.6 mg/dL (8.4-10.2); Carbon Dioxide 23 mmol/L (22-29); Chloride 109 mmol/L (96-108); Creatinine Clr Calc Pharmacy 74.1; Estimated Glomerular Filt Rate > 60; Glucose Fasting 129 mg/dL (60-99); Potassium 4.5 mmol/L (3.3-5.1); Sodium 141 mmol/L (135-145)
[2022-06-08] MEDS: Enoxaparin Sodium 40 MG/0.4 ML SYRINGE SUBCUT (09:03)
[2022-06-08] MEDS: Finasteride 5 MG TABLET PO (09:04)
--- NOTE | 2022-06-08 09:14 | PM.PNPUL ---
Subjective Subjective Date of Service: 06/08/22 Principal diagnosis: ILD/Resp.failure Interval history: This gentleman is feeling better and he is much more comfortable with high-flow O2, which is at 50 L/minute at this time. He is afebrile, denies any chest pain, denies any distress. Eating his breakfast, without any difficulty. Objective Data Labs 06/08/22 06:53 06/08/22 06:53 Labs: Laboratory Results - last 24 hr 06/07/22 06/08/22 06/08/22 09:20 06:53 06:53 WBC 18.0 H RBC 3.90 L Hgb 10.9 L Hct 33.9 L MCV 86.9 MCH 27.9 MCHC 32.2 RDW 14.2 Plt Count 361 D MPV 10.1 Absolute Nucleated RBC 0.020 H Nucleated RBC % (auto) 0.1 Sodium 141 Potassium 4.5 Chloride 109 H Carbon Dioxide 23 Anion Gap 14 BUN 27 H Creatinine 0.96 Estim Creat Clear Calc 74.1 Estimated GFR > 60 Fasting Glucose 129 H Calcium 8.6 Respiratory Panel Quiroz See Note Adenovirus (Rapid PCR) Not Detected B.pert (TEM-PCR) Not Detected B.parapertussis DNA PCR Not Detected C. pneumoniae DNA (PCR) Not Detected Coronavirus OC43 (PCR) Not Detected Coronavirus HKU1 (PCR) Not Detected Coronavirus 229E (PCR) Not Detected Coronavirus NL63 (PCR) Not Detected Human Metapneumovir PCR Not Detected Influenza A (RT-PCR) Not Detected Influenza B (RT-PCR) Not Detected M. pneumoniae (PCR) Not Detected Parainfluenza 1 (PCR) Not Detected Parainfluenza 2 (PCR) Not Detected Parainfluenza 3 (PCR) Not Detected Parainfluenza 4 (PCR) Not Detected RSV (PCR) Not Detected Entero/Rhino (PCR) Not Detected SARS-CoV-2 RNA (RT-PCR) Not Detected Microbiology Microbiology Results: Microbiology 06/06/22 17:59 Urine Catheterized - Cotton Catheter Urine Culture - Preliminary Enterococcus faecalis 06/06/22 14:48 Blood - Venous Blood Culture - Preliminary No growth after 24 hours. 06/06/22 13:55 Blood - Venous Blood Culture - Preliminary No growth after 24 hours. Review of Systems Review of Systems Yes all other systems are reviewed and are negative Eyes: Reports no additional eye complaints Reports system reviewed and no additional complaints, except as documented Cardiovascular: Denies chest pain, Denies irregular heart rhythm and Denies leg edema Respiratory: Reports as per HPI Gastrointestinal: Reports constipation Genitourinary: Reports nocturia, Reports urinary frequency and Reports other (Active UTI) Musculoskeletal: Reports muscle weakness Skin/Breast: Reports system reviewed and no additional complaints, except as docu Reports system reviewed and no additional complaints, except as documented Psychiatric: Reports no additional psychiatric complaints Endocrine: Reports no additional endocrine complaints Hematologic/Lymphatic: Reports no additional hematologic/lymphatic complaints Physical Exam Vital Signs: Vital Signs: Last Vital Signs Temp 95.6 F L 06/08/22 07:37 Pulse 62 06/08/22 07:37 Resp 19 06/08/22 08:13 BP 143/67 H 06/08/22 07:37 Pulse Ox 92 06/08/22 07:37 O2 Del Method High Flow Nasal C annula 06/08/22 07:37 O2 Flow Rate 5 06/08/22 07:37 FiO2 90 06/08/22 03:15 Oxygen Flow Rate 8 06/06/22 12:12 BMI result Body Mass Index 29.9 Const: General: no acute distress (But short of breath during talking.), alert and awake HEENT: Head: Yes normal to inspection General nose exam: No nasal polyps present and No nasal discharge present Face and sinus: Yes sinuses nontender Mouth: oropharynx normal Throat: Yes posterior oropharynx normal Eyes: General: appearance normal, both eyes and all related structures Neck: Neck: Yes normal visual inspection, Yes no lymphadenopathy, Yes trachea midline and Yes no JVD Thyroid: Thyroid normal Chest: Chest palpation & inspection: normal inspection of the chest and no tenderness Resp: Other: Percussion note is resonant. Breath sounds are equal on both sides but diminished over the basilar areas. Inspiratory crackles are heard over both lower lobes. No wheezes. Cardio: Palpation: normal PMI Rate: regular rate Rhythm: regular rhythm Heart sounds: no gallops and no murmurs GI: Palpation (GI): Soft to palpation, nontender, No hepatosplenomegaly present and no masses Auscultation: normal bowel sounds Back/Spine/Pelvis: Other: Not examined Skin: General skin exam: no rashes or lesions noted Neuro: General: no focal motor deficits Cranial nerves: Yes CN's II-XII intact bilaterally Extrem: General: Yes normal to inspection, Yes no clubbing, cyanosis or edema and Yes no calf tenderness Psych: Speech and movement: Normal speech and movement present Procedures Date of Service Date of Service: 06/08/22 Assessment and Plan Assessment and plan (1) ILD (interstitial lung disease): Status: Acute (2) Respiratory failure with hypoxia: Status: Acute (3) Acute UTI: Status: Acute Plan This the elderly gentleman with extensive bilateral interstitial lung disease /acute on chronic, probably exacerbated due to acute UTI/sepsis. Is clinically improving, still requiring high concentration of oxygen. Recc . Continue present treatment at this time, goal would be to wean down on his oxygen requirement, hoping that he can maintain good oxygenation just with nasal cannula. Time Spent With Patient Time: Total time managing care of this patient today ____ minutes. Progress Note: Quality Stroke Does the patient have a stroke diagnosis?: No
--- NOTE | 2022-06-08 10:35 | MHC.CM.PN ---
EMR reviewed and per MD rounds, pt with extensive bilateral interstitial lung disease/ ARF. Pt still requiring high concentration of oxygen and is not medically cleared for D/C. CM will continue to follow.
[2022-06-08] MEDS: methylPREDNISolone Sod Succ 125 MG/2 ML VIAL 60 MG IVPUSH ×3 (10:58→21:04)
[2022-06-08 14:47] LABS: Vancomycin Random 5.7 mcg/mL (15-20)
--- NOTE | 2022-06-08 14:59 | HE.PHANOTE ---
Vancomycin Dosing Addendum Patients level came back this afternoon at 5.7 which is sub therapeutic. Patient is 87 years old so Q24H dosing is preferred however 1500 mg @24H will leave a sub therapeutic AUC. IF increase to 2 grams this would be 18 mg/kg. Patients renal function has also not been stable. Going to go with 1000 mg Q12H to see how patient will do on Q12H dosing, hopefully level will increase with smaller clearing interval. Next level to draw after 2 doses to ensure safety and efficacy, 06/09 @1400. Predicted AUC 454 mg/L/hr
--- NOTE | 2022-06-08 15:31 | P.PNIM_ITS ---
Subjective Subjective Date of Service: 06/08/22 Interval History: Resting comfortably on high-flow O2 Review of Systems Denies chest pain Admit shortness of breath with minimal exertion Denies nausea vomiting diarrhea Denies fever chills Physical Exam Vital Signs: Vital Signs: Last Vital Signs Temp 96.4 F L 06/08/22 14:58 Pulse 70 06/08/22 14:58 Resp 20 06/08/22 14:58 BP 121/73 06/08/22 14:58 Pulse Ox 94 06/08/22 14:58 O2 Del Method High Flow Nasal C annula 06/08/22 14:58 O2 Flow Rate 50 06/08/22 14:58 FiO2 70 06/08/22 14:58 Oxygen Flow Rate 8 06/06/22 12:12 BMI result Body Mass Index 29.9 Const: Other: No acute distress Resp: Other: Diminished throughout with and expiratory crackles at both bases Cardio: Other: No S4; positive S1-S2; no S3 murmurs rubs or gallops GI: Other: Soft nontender nondistended normoactive bowel sounds Extrem: Other: No edema bilaterally Objective Data Active Medications Acetaminophen (Acetaminophen 325 Mg Tablet) 650 mg PO Q6H PRN PRN Reason: fever/pain Enoxaparin Sodium (Enoxaparin Sodium 40 Mg/0.4 Ml Syringe) 40 mg SUBCUT Q24H [facility] Last Admin: 06/08/22 09:03 Dose: 40 mg Documented By: JEFE Finasteride (Finasteride 5 Mg Tablet) 5 mg PO DAILY [facility] Last Admin: 06/08/22 09:04 Dose: 5 mg Documented By: JEFE Piperacillin Sod/Tazobactam (Sod 3.375 gm/ Sodium Chloride) 50 mls @ 100 mls/hr IV Q6H [facility] Last Infusion: 06/08/22 12:07 Dose: 0 mls/hr Documented By: JEFE Vancomycin HCl 1,000 mg/ (Sodium Chloride) 270 mls @ 270 mls/hr IV Q12H [facility] Methylprednisolone Sodium Succinate (Methylprednisolone Sod Succ 125 Mg/2 Ml Vial) 60 mg IVPUSH Q6H [facility] Last Admin: 06/08/22 10:58 Dose: 60 mg Documented By: JEFE Pharmacy Consult (Consult Rx Perform Med Rec) 1 each MISCELLANE ONCE PRN PRN Reason: Consult order Pharmacy Consult (Consult Rx Vancomycin Dosing) 1 each MISCELLANE DAILY PRN PRN Reason: Consult order Sodium Chloride (0.9 % Sodium Chloride Flush 3 Ml Syringe) 3 ml IVFLUSH QSHIFT [facility] Last Admin: 06/08/22 09:04 Dose: 3 ml Documented By: JEFE Tamsulosin HCl (Tamsulosin Hcl 0.4 Mg Capsule) 0.4 mg PO BEDTIME [facility] Last Admin: 06/07/22 20:17 Dose: 0.4 mg Documented By: JOSEPHINE Labs 06/08/22 06:53 06/08/22 06:53 Labs: Laboratory Results - last 24 hr 06/08/22 06/08/22 06/08/22 06:53 06:53 14:04 MCV 86.9 MCH 27.9 MCHC 32.2 RDW 14.2 Plt Count 361 D MPV 10.1 Absolute Nucleated RBC 0.020 H Nucleated RBC % (auto) 0.1 Anion Gap 14 Estim Creat Clear Calc 74.1 Estimated GFR > 60 Fasting Glucose 129 H Calcium 8.6 Random Vancomycin 5.7 L Microbiology Microbiology Results: Microbiology 06/06/22 17:59 Urine Culture - Preliminary Urine Catheterized - Cotton Catheter Enterococcus faecalis 06/06/22 14:48 Blood Culture - Preliminary Blood - Venous No growth after 24 hours. 06/06/22 13:55 Blood Culture - Preliminary Blood - Venous No growth after 24 hours. Assessment and Plan (1) Respiratory failure with hypoxia: Status: Acute (2) ILD (interstitial lung disease): Status: Acute (3) Acute UTI: Status: Acute Plan 87M PMH ILD, BPH presented with sob likely related to UTI exacerbation of IL day 1.Severe sepsis(complicated by acute hypoxic respiratory failure complicated by ILD with acute decompensation) -urine preliminarily growing Enterococcus -continue vancomycin/Zosyn(3) -adjust as per micro 2. Interstitial lung disease(acute decompensation) -continue vancomycin/Zosyn (empirically -pulse dose IV steroids -continue high-flow O2 and titrate as indicated with goal to reach nasal cannula Lovenox Full code Requires ongoing hospitalization for IV antibiotics to treat UTI pending ID of source along with high-flow O2 Time Spent With Patient Time: Total time managing care of this patient today ____ minutes. Quality Stroke Does the patient have a stroke diagnosis?: No VTE Prior VTE?: No VTE Risk Level:: Medical - moderate - high VTE Device Contraindication: Treatment Not Indicated VTE Drug Contraindication: N/A - Med Ordered
[2022-06-08] MEDS: vancomycin HCL 1,000 MG in 0.9 % Sodium Chloride 250 ML 270 MG IV (17:12)
[2022-06-08] MEDS: Tamsulosin HCL 0.4 MG CAPSULE PO (21:05)
[2022-06-09] VITALS (11 sets, daily range): BP systolic 146–170; BP diastolic 67–81; PULSE 62–77; RESP 16–24; TEMP 35.2–36.7; O2SAT 88–94
[2022-06-09] MEDS: vancomycin HCL 1,000 MG in 0.9 % Sodium Chloride 250 ML 270 MG IV (03:49)
[2022-06-09] MEDS: methylPREDNISolone Sod Succ 125 MG/2 ML VIAL 60 MG IVPUSH ×4 (03:49→20:30)
[2022-06-09] MEDS: Piperacillin Sodium/Tazobactam 3.375 GM in 0.9 % Sodium Chloride 50 ML IV ×4 (05:07→23:41)
[2022-06-09 07:14] LABS: Basophils Percent Auto 0.1 % (0-2); Hematocrit 34.6 % (42.0-52.0); Imm Gran Abs Auto 0.11 X10*3/uL (0.00-0.03); Imm Gran Pct Auto 0.7 % (0.0-0.4); Lymphocytes Absolute Auto 0.7 X10*3/uL (1.2-4.9); Lymphocytes Percent Auto 4.5 % (20-40); MANUAL DIFF FLAG SCAN; Mean Corpuscular HGB Conc 31.8 g/dl (31.0-36.0); Mean Corpuscular Hemoglobin 27.7 pg (27.0-33.0); Mean Corpuscular Volume 87.2 fL (80.0-98.0); Mean Platelet Volume 10.1 fL (9.4-12.4); Monocytes Absolute Auto 0.5 X10*3/uL (0.1-1.2); Monocytes Percent Auto 3.2 % (2-11); NRBC Pct Auto 0.1 /100WBC (0.0-0.2); Neutrophils Absolute Auto 14.6 x10*3/uL (2.0-8.3); Neutrophils Percent Auto 91.5 % (45-73); Platelet Count 360 X10*3/uL (160-400); Red Blood Count 3.97 X10*6/uL (4.60-5.80); Red Cell Distribution Width 14.1 % (11.0-16.0); SCAN SMEAR FLAG 1; White Blood Count 15.9 X10*3/uL (4.8-10.8)
[2022-06-09 07:26] LABS: Alanine Aminotransferase 14 U/L (0-40); Albumin Level 2.9 g/dL (3.5-5.0); Alkaline Phosphatase 126 U/L (39-117); Anion Gap 13 (12-20); Aspartate Amino Transferase 25 U/L (5-37); Bilirubin Total 1.1 mg/dL (0.0-1.0); Blood Urea Nitrogen 34 mg/dL (9-16); Calcium 8.4 mg/dL (8.4-10.2); Carbon Dioxide 26 mmol/L (22-29); Chloride 109 mmol/L (96-108); Creatinine Clr Calc Pharmacy 79.9; Estimated Glomerular Filt Rate > 60; Glucose Fasting 137 mg/dL (60-99); Potassium 4.5 mmol/L (3.3-5.1); Sodium 143 mmol/L (135-145); Total Protein 5.7 g/dL (6.5-8.0)
[2022-06-09 08:28] LABS: SLIDE REVIEW VERIFIED
[2022-06-09] MEDS: Enoxaparin Sodium 40 MG/0.4 ML SYRINGE SUBCUT (10:20)
[2022-06-09] MEDS: 0.9 % Sodium Chloride Flush 3 ML SYRINGE IVFLUSH ×3 (10:20→23:41)
[2022-06-09] MEDS: Finasteride 5 MG TABLET PO (10:20)
--- NOTE | 2022-06-09 13:44 | HO.PM.IMPN ---
Subjective Subjective Date of Service: 06/09/22 Interval History: Essentially no change overnight. Remains awake alert tolerating high-flow Review of Systems Denies chest pain Admit shortness of breath with minimal exertion Denies nausea vomiting diarrhea Denies fever chills Physical Exam Vital Signs: Vital Signs: Last Vital Signs Temp 98.1 F 06/09/22 11:22 Pulse 62 06/09/22 11:22 Resp 19 06/09/22 11:22 BP 158/79 H 06/09/22 11:22 Pulse Ox 89 L 06/09/22 11:22 O2 Del Method High Flow Nasal C annula 06/09/22 11:22 O2 Flow Rate 50 06/08/22 23:40 FiO2 80 06/08/22 23:40 Oxygen Flow Rate 8 06/06/22 12:12 BMI result Body Mass Index 29.9 Const: Other: No acute distress Resp: Other: Diminished throughout with and expiratory crackles at both bases Cardio: Other: No S4; positive S1-S2; no S3 murmurs rubs or gallops GI: Other: Soft nontender nondistended normoactive bowel sounds Extrem: Other: No edema bilaterally Objective Data Active Medications Acetaminophen (Acetaminophen 325 Mg Tablet) 650 mg PO Q6H PRN PRN Reason: fever/pain Enoxaparin Sodium (Enoxaparin Sodium 40 Mg/0.4 Ml Syringe) 40 mg SUBCUT Q24H [facility] Last Admin: 06/09/22 10:20 Dose: 40 mg Documented By: ALEXANDRIA Finasteride (Finasteride 5 Mg Tablet) 5 mg PO DAILY [facility] Last Admin: 06/09/22 10:20 Dose: 5 mg Documented By: ALEXANDRIA Piperacillin Sod/Tazobactam (Sod 3.375 gm/ Sodium Chloride) 50 mls @ 100 mls/hr IV Q6H [facility] Last Infusion: 06/09/22 12:36 Dose: 0 mls/hr Documented By: ALEXANDRIA Vancomycin HCl 1,000 mg/ (Sodium Chloride) 270 mls @ 270 mls/hr IV Q12H [facility] Last Infusion: 06/09/22 05:07 Dose: 0 mls/hr Documented By: LUCIO Methylprednisolone Sodium Succinate (Methylprednisolone Sod Succ 125 Mg/2 Ml Vial) 60 mg IVPUSH Q6H [facility] Last Admin: 06/09/22 10:20 Dose: 60 mg Documented By: ALEXANDRIA Pharmacy Consult (Consult Rx Perform Med Rec) 1 each MISCELLANE ONCE PRN PRN Reason: Consult order Pharmacy Consult (Consult Rx Vancomycin Dosing) 1 each MISCELLANE DAILY PRN PRN Reason: Consult order Sodium Chloride (0.9 % Sodium Chloride Flush 3 Ml Syringe) 3 ml IVFLUSH QSHIFT [facility] Last Admin: 06/09/22 10:20 Dose: 3 ml Documented By: ALEXANDRIA Tamsulosin HCl (Tamsulosin Hcl 0.4 Mg Capsule) 0.4 mg PO BEDTIME [facility] Last Admin: 06/08/22 21:05 Dose: 0.4 mg Documented By: LUCIO Labs 06/09/22 06:30 06/09/22 06:30 Labs: Laboratory Results - last 24 hr 06/08/22 06/09/22 06/09/22 14:04 06:30 06:30 MCV 87.2 MCH 27.7 MCHC 31.8 RDW 14.1 Plt Count 360 MPV 10.1 Immature Gran % (Auto) 0.7 H Neut % (Auto) 91.5 H Lymph % (Auto) 4.5 L Raw[place] % (Auto) 3.2 Eos % (Auto) 0.0 Baso % (Auto) 0.1 Lymph # (Auto) 0.7 L [place] # (Auto) 0.5 Eos # (Auto) 0.0 Baso # (Auto) 0.0 Abs Immat Gran (auto) 0.11 H Absolute Neuts (auto) 14.6 H Absolute Nucleated RBC 0.020 H Nucleated RBC % (auto) 0.1 Smear Tech's Comments VERIFIED Anion Gap 13 Estim Creat Clear Calc 79.9 Estimated GFR > 60 Fasting Glucose 137 H Calcium 8.4 Total Bilirubin 1.1 H AST 25 ALT 14 Alkaline Phosphatase 126 H Total Protein 5.7 L Albumin 2.9 L Random Vancomycin 5.7 L Microbiology Microbiology Results: Microbiology 06/06/22 17:59 Urine Culture - Final Urine Catheterized - Cotton Catheter Enterococcus faecalis 06/06/22 14:48 Blood Culture - Preliminary Blood - Venous No growth after 48 hours. 06/06/22 13:55 Blood Culture - Preliminary Blood - Venous No growth after 48 hours. Assessment and Plan (1) Respiratory failure with hypoxia: Status: Acute (2) ILD (interstitial lung disease): Status: Acute Plan 87M PMH ILD, BPH presented with sob likely related to UTI exacerbation of IL day 1.Severe sepsis(complicated by acute hypoxic respiratory failure complicated by ILD with acute decompensation) -urine preliminarily growing Enterococcus -continue vancomycin/Zosyn(4) -adjust as per micro 2. Interstitial lung disease(acute decompensation) -continue vancomycin/Zosyn (empirically -pulse dose IV steroids -continue high-flow O2 and titrate as indicated with goal to reach nasal cannula Lovenox Full code Requires ongoing hospitalization for IV antibiotics to treat UTI pending ID of source along with high-flow O2 Time Spent With Patient Time: Total time managing care of this patient today ____ minutes. Quality Stroke Does the patient have a stroke diagnosis?: No VTE Prior VTE?: No VTE Risk Level:: Medical - moderate - high VTE Device Contraindication: Treatment Not Indicated VTE Drug Contraindication: N/A - Med Ordered
[2022-06-09 15:08] LABS: Vancomycin Random 9.8 mcg/mL (15-20)
--- NOTE | 2022-06-09 15:13 | HE.PHANOTE ---
Vancomycin Dosing Level subtherapeutic at 9.8. Will increase dose to vancomycin 1250 mg Q12H. Expected AUC 513 with a trough of 15.8. Next level 06/10 @ 1400. Charlotte CoonD
[2022-06-09] MEDS: vancomycin HCL 1,250 MG in 0.9 % Sodium Chloride 250 ML 166.67 MG IV (16:05)
--- NOTE | 2022-06-09 17:55 | PC.NURSE ---
Addendum entered by Rosa Chang RN 06/09/22 18:18: hans hugger and warmed blankets provided due to hypothermic 95.4 (rectally). On assessment pt denied sob or cold. MD Dr Clark notified. Continue to monitor. Original Note: pt apirated when drinking his juice despite sitting all the way up in the bed. His O2 sat was decrease to 77-886% an dpt was coughing a lot. pt said :it went to the wrong pipe . RT called and informed Dr Clark. pt then put on maximum of HFNC and his sat was 90-94%.
[2022-06-09] MEDS: Tamsulosin HCL 0.4 MG CAPSULE PO (20:16)
[2022-06-10] VITALS (16 sets, daily range): BP systolic 147–170; BP diastolic 59–78; PULSE 63–89; RESP 17–22; TEMP 35.8–36.4; O2SAT 87–97
--- NOTE | 2022-06-10 03:56 | PC.NURSE ---
[id number] shift; at change of shift patient on bear hugger, at [address] Rodriguez notified, ok to remove bear hugger and continue to monitor oral temps. 0000; oral temp 96.7, patient reports feeling normal , denies chills/sweating. Warm blanket provided, temp rechecked at 0100 oral temp 97.4 Continue to monitor
[2022-06-10] MEDS: methylPREDNISolone Sod Succ 125 MG/2 ML VIAL 60 MG IVPUSH ×4 (04:05→20:38)
[2022-06-10] MEDS: vancomycin HCL 1,250 MG in 0.9 % Sodium Chloride 250 ML 166.67 MG IV (04:05)
[2022-06-10] MEDS: Piperacillin Sodium/Tazobactam 3.375 GM in 0.9 % Sodium Chloride 50 ML IV ×4 (05:21→23:59)
[2022-06-10 07:02] LABS: Creatinine Clr Calc Pharmacy 82.7; Estimated Glomerular Filt Rate > 60
[2022-06-10] MEDS: Enoxaparin Sodium 40 MG/0.4 ML SYRINGE SUBCUT (09:14)
[2022-06-10] MEDS: 0.9 % Sodium Chloride Flush 3 ML SYRINGE IVFLUSH ×3 (09:15→20:38)
[2022-06-10] MEDS: Finasteride 5 MG TABLET PO (09:15)
--- NOTE | 2022-06-10 11:54 | MHC.CM.PN ---
EMR reviewed and per MD rounds, pt not medically cleared for D/C due to continual need for hi flow O2. CM will continue to monitor.
--- NOTE | 2022-06-10 14:08 | P.PNIM_ITS ---
Subjective Subjective Date of Service: 06/10/22 Interval History: Question episode of aspiration overnight. Back to baseline this a.m.. Tolerant to high-flow desats immediately when removed Review of Systems Denies chest pain Admit shortness of breath with minimal exertion Denies nausea vomiting diarrhea Denies fever chills Physical Exam Vital Signs: Vital Signs: Last Vital Signs Temp 97.2 F 06/10/22 12:00 Pulse 68 06/10/22 12:00 Resp 20 06/10/22 12:00 BP 170/59 H 06/10/22 12:00 Pulse Ox 96 06/10/22 12:00 O2 Del Method High Flow Nasal C annula 06/10/22 12:00 O2 Flow Rate 50 06/09/22 18:46 FiO2 50 06/10/22 12:00 Oxygen Flow Rate 8 06/06/22 12:12 BMI result Body Mass Index 29.9 Const: Other: No acute distress Resp: Other: Diminished throughout with and expiratory crackles at both bases Cardio: Other: No S4; positive S1-S2; no S3 murmurs rubs or gallops GI: Other: Soft nontender nondistended normoactive bowel sounds Extrem: Other: No edema bilaterally Objective Data Active Medications Acetaminophen (Acetaminophen 325 Mg Tablet) 650 mg PO Q6H PRN PRN Reason: fever/pain Enoxaparin Sodium (Enoxaparin Sodium 40 Mg/0.4 Ml Syringe) 40 mg SUBCUT Q24H [facility] Last Admin: 06/10/22 09:14 Dose: 40 mg Documented By: ALEXANDRIA Finasteride (Finasteride 5 Mg Tablet) 5 mg PO DAILY [facility] Last Admin: 06/10/22 09:15 Dose: 5 mg Documented By: ALEXANDRIA Piperacillin Sod/Tazobactam (Sod 3.375 gm/ Sodium Chloride) 50 mls @ 100 mls/hr IV Q6H [facility] Last Infusion: 06/10/22 13:10 Dose: 0 mls/hr Documented By: ALEXANDRIA Vancomycin HCl 1,250 mg/ (Sodium Chloride) 250 mls @ 166.667 mls/hr IV Q12H [facility] Last Infusion: 06/10/22 05:36 Dose: 0 mls/hr Documented By: JONAH Methylprednisolone Sodium Succinate (Methylprednisolone Sod Succ 125 Mg/2 Ml Vial) 60 mg IVPUSH Q6H [facility] Last Admin: 06/10/22 09:15 Dose: 60 mg Documented By: ALEXANDRIA Pharmacy Consult (Consult Rx Perform Med Rec) 1 each MISCELLANE ONCE PRN PRN Reason: Consult order Pharmacy Consult (Consult Rx Vancomycin Dosing) 1 each MISCELLANE DAILY PRN PRN Reason: Consult order Sodium Chloride (0.9 % Sodium Chloride Flush 3 Ml Syringe) 3 ml IVFLUSH QSHIFT [facility] Last Admin: 06/10/22 09:15 Dose: 3 ml Documented By: ALEXANDRIA Tamsulosin HCl (Tamsulosin Hcl 0.4 Mg Capsule) 0.4 mg PO BEDTIME [facility] Last Admin: 06/09/22 20:16 Dose: 0.4 mg Documented By: BLAYNE Labs 06/09/22 06:30 06/10/22 06:11 Labs: Laboratory Results - last 24 hr 06/09/22 06/10/22 14:32 06:11 Estim Creat Clear Calc 82.7 Estimated GFR > 60 Random Vancomycin 9.8 L Assessment and Plan (1) Respiratory failure with hypoxia: Status: Acute (2) ILD (interstitial lung disease): Status: Acute Plan 87M PMH ILD, BPH presented with sob likely related to UTI exacerbation of IL day 1.Severe sepsis(complicated by acute hypoxic respiratory failure complicated by ILD with acute decompensation) -urine preliminarily growing Enterococcus -continue vancomycin/Zosyn(5) -adjust as per micro 2. Interstitial lung disease(acute decompensation) -continue vancomycin/Zosyn (empirically -pulse dose IV steroids -continue high-flow O2 and titrate as indicated with goal to reach nasal cannula Lovenox Full code Requires ongoing hospitalization for IV antibiotics to treat UTI pending ID of source along with high-flow O2 Time Spent With Patient Time: Total time managing care of this patient today ____ minutes. Quality Stroke Does the patient have a stroke diagnosis?: No VTE Prior VTE?: No VTE Risk Level:: Medical - moderate - high VTE Device Contraindication: Treatment Not Indicated VTE Drug Contraindication: N/A - Med Ordered
[2022-06-10 14:54] LABS: Vancomycin Random 11.6 mcg/mL (15-20)
[2022-06-10] MEDS: vancomycin HCL 1,250 MG in 0.9 % Sodium Chloride 250 ML 166.7 MG IV (16:14)
[2022-06-10] MEDS: Tamsulosin HCL 0.4 MG CAPSULE PO (20:38)
[2022-06-11] VITALS (11 sets, daily range): BP systolic 162–175; BP diastolic 67–79; PULSE 60–68; RESP 18–20; TEMP 36.2–36.7; O2SAT 88–94
[2022-06-11] MEDS: methylPREDNISolone Sod Succ 125 MG/2 ML VIAL 60 MG IVPUSH ×4 (04:08→21:03)
[2022-06-11] MEDS: vancomycin HCL 1,250 MG in 0.9 % Sodium Chloride 250 ML 166.67 MG IV (04:09)
[2022-06-11] MEDS: Piperacillin Sodium/Tazobactam 3.375 GM in 0.9 % Sodium Chloride 50 ML IV ×4 (06:05→23:53)
[2022-06-11 06:57] LABS: Creatinine Clr Calc Pharmacy 93.6; Estimated Glomerular Filt Rate > 60
[2022-06-11] MEDS: Enoxaparin Sodium 40 MG/0.4 ML SYRINGE SUBCUT (08:42)
[2022-06-11] MEDS: 0.9 % Sodium Chloride Flush 3 ML SYRINGE IVFLUSH ×3 (08:42→21:05)
[2022-06-11] MEDS: Finasteride 5 MG TABLET PO (08:42)
--- NOTE | 2022-06-11 10:33 | P.PNIM_ITS ---
Subjective Subjective Date of Service: 06/11/22 Interval History: Essentially no change overnight. Continues on high-flow tolerating well. Quickly desats when high-flow off Review of Systems Denies chest pain Admit shortness of breath with minimal exertion Denies nausea vomiting diarrhea Denies fever chills Physical Exam Vital Signs: Vital Signs: Last Vital Signs Temp 97.2 F 06/11/22 08:01 Pulse 66 06/11/22 08:01 Resp 18 06/11/22 08:12 BP 168/71 H 06/11/22 08:01 Pulse Ox 89 L 06/11/22 08:01 O2 Del Method High Flow Nasal C annula 06/11/22 08:01 O2 Flow Rate 55 06/11/22 08:01 FiO2 96 06/11/22 08:01 Oxygen Flow Rate 8 06/06/22 12:12 BMI result Body Mass Index 29.9 Const: Other: No acute distress Resp: Other: Diminished throughout with and expiratory crackles at both bases Cardio: Other: No S4; positive S1-S2; no S3 murmurs rubs or gallops GI: Other: Soft nontender nondistended normoactive bowel sounds Extrem: Other: No edema bilaterally Objective Data Active Medications Acetaminophen (Acetaminophen 325 Mg Tablet) 650 mg PO Q6H PRN PRN Reason: fever/pain Enoxaparin Sodium (Enoxaparin Sodium 40 Mg/0.4 Ml Syringe) 40 mg SUBCUT Q24H [facility] Last Admin: 06/11/22 08:42 Dose: 40 mg Documented By: TONI Finasteride (Finasteride 5 Mg Tablet) 5 mg PO DAILY [facility] Last Admin: 06/11/22 08:42 Dose: 5 mg Documented By: TONI Piperacillin Sod/Tazobactam (Sod 3.375 gm/ Sodium Chloride) 50 mls @ 100 mls/hr IV Q6H [facility] Last Infusion: 06/11/22 06:39 Dose: 0 mls/hr Documented By: JAYNA Vancomycin HCl 1,250 mg/ (Sodium Chloride) 250 mls @ 166.667 mls/hr IV Q12H [facility] Last Infusion: 06/11/22 05:50 Dose: 0 mls/hr Documented By: JAYNA Methylprednisolone Sodium Succinate (Methylprednisolone Sod Succ 125 Mg/2 Ml Vial) 60 mg IVPUSH Q6H [facility] Last Admin: 06/11/22 08:42 Dose: 60 mg Documented By: TONI Pharmacy Consult (Consult Rx Perform Med Rec) 1 each MISCELLANE ONCE PRN PRN Reason: Consult order Pharmacy Consult (Consult Rx Vancomycin Dosing) 1 each MISCELLANE DAILY PRN PRN Reason: Consult order Sodium Chloride (0.9 % Sodium Chloride Flush 3 Ml Syringe) 3 ml IVFLUSH QSHIFT [facility] Last Admin: 06/11/22 08:42 Dose: 3 ml Documented By: TONI Tamsulosin HCl (Tamsulosin Hcl 0.4 Mg Capsule) 0.4 mg PO BEDTIME [facility] Last Admin: 06/10/22 20:38 Dose: 0.4 mg Documented By: JAYNA Labs 06/09/22 06:30 06/11/22 06:04 Labs: Laboratory Results - last 24 hr 06/10/22 06/11/22 14:03 06:04 Estim Creat Clear Calc 93.6 Estimated GFR > 60 Random Vancomycin 11.6 L Assessment and Plan (1) Respiratory failure with hypoxia: Status: Acute (2) Acute UTI: Status: Acute (3) ILD (interstitial lung disease): Status: Acute Plan 87M PMH ILD, BPH presented with sob likely related to UTI exacerbation of IL day 1.Severe sepsis(complicated by acute hypoxic respiratory failure complicated by ILD with acute decompensation) -urine preliminarily growing Enterococcus -continue vancomycin/Zosyn(6) -adjust as per micro 2. Interstitial lung disease(acute decompensation) -continue vancomycin/Zosyn (empirically ( -pulse dose IV steroids -continue high-flow O2 and titrate as indicated with goal to reach nasal cannula Lovenox Full code Requires ongoing hospitalization for IV antibiotics to treat UTI pending ID of source along with high-flow O2 Time Spent With Patient Time: Total time managing care of this patient today ____ minutes. Quality Stroke Does the patient have a stroke diagnosis?: No VTE Prior VTE?: No VTE Risk Level:: Medical - moderate - high VTE Device Contraindication: Treatment Not Indicated VTE Drug Contraindication: N/A - Med Ordered
[2022-06-11 14:06] LABS: Vancomycin Random 14.9 mcg/mL (15-20)
--- NOTE | 2022-06-11 14:29 | HE.PHANOTE ---
Re: vanco dosing Pt renal function is stable (SCr 0.76 on 06/11), trough of 14.9 on 06/11. Will continue on current dose of 1250 mg and check trough again on 06/13.
[2022-06-11] MEDS: vancomycin HCL 1,250 MG in 0.9 % Sodium Chloride 250 ML 166.7 MG IV (16:36)
[2022-06-11] MEDS: Tamsulosin HCL 0.4 MG CAPSULE PO (21:03)
[2022-06-12] VITALS (13 sets, daily range): BP systolic 164–187; BP diastolic 77–94; PULSE 58–69; RESP 17–20; TEMP 36.1–36.7; O2SAT 90–95
[2022-06-12] MEDS: methylPREDNISolone Sod Succ 125 MG/2 ML VIAL 60 MG IVPUSH ×4 (03:38→21:11)
[2022-06-12] MEDS: vancomycin HCL 1,250 MG in 0.9 % Sodium Chloride 250 ML 166.7 MG IV (03:39)
[2022-06-12] MEDS: Piperacillin Sodium/Tazobactam 3.375 GM in 0.9 % Sodium Chloride 50 ML IV ×4 (05:40→23:52)
--- NOTE | 2022-06-12 06:21 | PC.NURSE ---
Patients Cotton catheter has a leak. Cotton catheter was irrigated and the balloon was checked for 10mls. Patient seems to have blood in their urine. MD notified, notified and no further orders placed.
[2022-06-12 06:47] LABS: Creatinine Clr Calc Pharmacy 91.2; Estimated Glomerular Filt Rate > 60
[2022-06-12 07:47] LABS: Basophils Percent Auto 0.1 % (0-2); Hematocrit 36.2 % (42.0-52.0); Hemoglobin 11.5 g/dl (14.0-18.0); Imm Gran Pct Auto 0.7 % (0.0-0.4); Lymphocytes Absolute Auto 0.6 X10*3/uL (1.2-4.9); Mean Corpuscular HGB Conc 31.8 g/dl (31.0-36.0); Mean Corpuscular Hemoglobin 27.5 pg (27.0-33.0); Mean Corpuscular Volume 86.6 fL (80.0-98.0); Mean Platelet Volume 10.4 fL (9.4-12.4); Monocytes Absolute Auto 0.7 X10*3/uL (0.1-1.2); Monocytes Percent Auto 4.5 % (2-11); Neutrophils Absolute Auto 13.6 x10*3/uL (2.0-8.3); Neutrophils Percent Auto 90.7 % (45-73); Platelet Count 459 X10*3/uL (160-400); Red Blood Count 4.18 X10*6/uL (4.60-5.80); Red Cell Distribution Width 14.2 % (11.0-16.0); SCAN SMEAR FLAG 1; White Blood Count 14.9 X10*3/uL (4.8-10.8)
[2022-06-12 07:58] LABS: Alanine Aminotransferase 28 U/L (0-40); Alkaline Phosphatase 117 U/L (39-117); Anion Gap 15 (12-20); Aspartate Amino Transferase 24 U/L (5-37); Blood Urea Nitrogen 32 mg/dL (9-16); Calcium 8.6 mg/dL (8.4-10.2); Carbon Dioxide 25 mmol/L (22-29); Chloride 108 mmol/L (96-108); Creatinine Clr Calc Pharmacy 92.4; Estimated Glomerular Filt Rate > 60; Glucose Random 134 mg/dL (60-115); Potassium 4.6 mmol/L (3.3-5.1); Sodium 143 mmol/L (135-145); Total Protein 5.7 g/dL (6.5-8.0)
[2022-06-12 08:08] LABS: MANUAL DIFF FLAG SCAN
[2022-06-12 08:09] LABS: SLIDE REVIEW VERIFIED
[2022-06-12] MEDS: 0.9 % Sodium Chloride Flush 3 ML SYRINGE IVFLUSH ×2 (08:27→15:45)
[2022-06-12] MEDS: Enoxaparin Sodium 40 MG/0.4 ML SYRINGE SUBCUT (08:27)
[2022-06-12] MEDS: Finasteride 5 MG TABLET PO (08:27)
--- NOTE | 2022-06-12 11:46 | HO.PM.IMPN ---
Subjective Subjective Date of Service: 06/12/22 Interval History: Essentially no change overnight. Tolerant of high-flow however desats immediately when removed Review of Systems Denies chest pain Admit shortness of breath with minimal exertion Denies nausea vomiting diarrhea Denies fever chills Physical Exam Vital Signs: Vital Signs: Last Vital Signs Temp 97.1 F 06/12/22 11:06 Pulse 65 06/12/22 11:06 Resp 18 06/12/22 11:33 BP 168/77 H 06/12/22 11:06 Pulse Ox 90 L 06/12/22 11:06 O2 Del Method High Flow Nasal C annula 06/12/22 11:06 O2 Flow Rate 55 06/12/22 11:06 FiO2 96.4 06/12/22 11:06 Oxygen Flow Rate 8 06/06/22 12:12 BMI result Body Mass Index 29.9 Const: Other: No acute distress Resp: Other: Diminished throughout with and expiratory crackles at both bases Cardio: Other: No S4; positive S1-S2; no S3 murmurs rubs or gallops GI: Other: Soft nontender nondistended normoactive bowel sounds Extrem: Other: No edema bilaterally Objective Data Active Medications Acetaminophen (Acetaminophen 325 Mg Tablet) 650 mg PO Q6H PRN PRN Reason: fever/pain Enoxaparin Sodium (Enoxaparin Sodium 40 Mg/0.4 Ml Syringe) 40 mg SUBCUT Q24H [facility] Last Admin: 06/12/22 08:27 Dose: 40 mg Documented By: TONI Finasteride (Finasteride 5 Mg Tablet) 5 mg PO DAILY [facility] Last Admin: 06/12/22 08:27 Dose: 5 mg Documented By: TONI Piperacillin Sod/Tazobactam (Sod 3.375 gm/ Sodium Chloride) 50 mls @ 100 mls/hr IV Q6H [facility] Last Admin: 06/12/22 11:22 Dose: 100 mls/hr Documented By: TONI Vancomycin HCl 1,250 mg/ (Sodium Chloride) 250 mls @ 166.667 mls/hr IV Q12H [facility] Last Infusion: 06/12/22 05:15 Dose: 0 mls/hr Documented By: JAYNA Methylprednisolone Sodium Succinate (Methylprednisolone Sod Succ 125 Mg/2 Ml Vial) 60 mg IVPUSH Q6H [facility] Last Admin: 06/12/22 08:27 Dose: 60 mg Documented By: TONI Pharmacy Consult (Consult Rx Perform Med Rec) 1 each MISCELLANE ONCE PRN PRN Reason: Consult order Pharmacy Consult (Consult Rx Vancomycin Dosing) 1 each MISCELLANE DAILY PRN PRN Reason: Consult order Sodium Chloride (0.9 % Sodium Chloride Flush 3 Ml Syringe) 3 ml IVFLUSH QSHIFT [facility] Last Admin: 06/12/22 08:27 Dose: 3 ml Documented By: TONI Tamsulosin HCl (Tamsulosin Hcl 0.4 Mg Capsule) 0.4 mg PO BEDTIME [facility] Last Admin: 06/11/22 21:03 Dose: 0.4 mg Documented By: JAYNA Labs 06/12/22 05:54 06/12/22 05:54 Labs: Laboratory Results - last 24 hr 06/11/22 06/12/22 06/12/22 13:45 05:54 05:54 MCV 86.6 MCH 27.5 MCHC 31.8 RDW 14.2 Plt Count 459 H D MPV 10.4 Immature Gran % (Auto) 0.7 H Neut % (Auto) 90.7 H Lymph % (Auto) 4.0 L [place] % (Auto) 4.5 Eos % (Auto) 0.0 Baso % (Auto) 0.1 Lymph # (Auto) 0.6 L [place] # (Auto) 0.7 Eos # (Auto) 0.0 Baso # (Auto) 0.0 Abs Immat Gran (auto) 0.10 H Absolute Neuts (auto) 13.6 H Absolute Nucleated RBC 0.000 Nucleated RBC % (auto) 0.0 Smear Tech's Comments VERIFIED Anion Gap Estim Creat Clear Calc 91.2 Estimated GFR > 60 Random Glucose Calcium Total Bilirubin AST ALT Alkaline Phosphatase Total Protein Albumin Random Vancomycin 14.9 L 06/12/22 05:54 MCV MCH MCHC RDW Plt Count MPV Immature Gran % (Auto) Neut % (Auto) Lymph % (Auto) [place] % (Auto) Eos % (Auto) Baso % (Auto) Lymph # (Auto) [place] # (Auto) Eos # (Auto) Baso # (Auto) Abs Immat Gran (auto) Absolute Neuts (auto) Absolute Nucleated RBC Nucleated RBC % (auto) Smear Tech's Comments Anion Gap 15 Estim Creat Clear Calc 92.4 Estimated GFR > 60 Random Glucose 134 H Calcium 8.6 Total Bilirubin 1.0 AST 24 ALT 28 Alkaline Phosphatase 117 Total Protein 5.7 L Albumin 3.0 L Random Vancomycin Microbiology Microbiology Results: Microbiology 06/06/22 14:48 Blood Culture - Final Blood - Venous No growth after 5 days. 06/06/22 13:55 Blood Culture - Final Blood - Venous No growth after 5 days. Assessment and Plan (1) Respiratory failure with hypoxia: Status: Acute (2) ILD (interstitial lung disease): Status: Acute Plan 87M PMH ILD, BPH presented with sob likely related to UTI exacerbation of IL day 1.Severe sepsis(complicated by acute hypoxic respiratory failure complicated by ILD with acute decompensation) -urine preliminarily growing Enterococcus -continue vancomycin/Zosyn(7) -adjust as per micro 2. Interstitial lung disease(acute decompensation) -continue vancomycin/Zosyn (empirically ) -pulse dose IV steroids -continue high-flow O2 and titrate as indicated with goal to reach nasal cannula... Essentially no improvement since admit Barrie Full code Requires ongoing hospitalization for IV antibiotics to treat UTI pending ID of source along with high-flow O2 Time Spent With Patient Time: Total time managing care of this patient today ____ minutes. Quality Stroke Does the patient have a stroke diagnosis?: No VTE Prior VTE?: No VTE Risk Level:: Medical - moderate - high VTE Device Contraindication: Treatment Not Indicated VTE Drug Contraindication: N/A - Med Ordered
[2022-06-12] MEDS: vancomycin HCL 1,250 MG in 0.9 % Sodium Chloride 250 ML 166.67 MG IV (15:46)
[2022-06-12] MEDS: Tamsulosin HCL 0.4 MG CAPSULE PO (21:12)
[2022-06-13] VITALS (11 sets, daily range): BP systolic 140–183; BP diastolic 65–80; PULSE 59–73; RESP 16–20; TEMP 36.1–37.1; O2SAT 89–96
[2022-06-13] MEDS: vancomycin HCL 1,250 MG in 0.9 % Sodium Chloride 250 ML 166.67 MG IV (05:15)
[2022-06-13] MEDS: methylPREDNISolone Sod Succ 125 MG/2 ML VIAL 60 MG IVPUSH ×2 (05:20→09:28)
[2022-06-13] MEDS: Piperacillin Sodium/Tazobactam 3.375 GM in 0.9 % Sodium Chloride 50 ML IV ×2 (05:36→12:24)
[2022-06-13 06:38] LABS: MANUAL DIFF FLAG NO
[2022-06-13 06:48] LABS: Basophils Percent Auto 0.1 % (0-2); Hematocrit 35.4 % (42.0-52.0); Hemoglobin 11.3 g/dl (14.0-18.0); Imm Gran Abs Auto 0.12 X10*3/uL (0.00-0.03); Imm Gran Pct Auto 0.8 % (0.0-0.4); Lymphocytes Absolute Auto 0.6 X10*3/uL (1.2-4.9); Lymphocytes Percent Auto 3.8 % (20-40); Mean Corpuscular HGB Conc 31.9 g/dl (31.0-36.0); Mean Corpuscular Hemoglobin 27.9 pg (27.0-33.0); Mean Corpuscular Volume 87.4 fL (80.0-98.0); Mean Platelet Volume 10.5 fL (9.4-12.4); Monocytes Absolute Auto 0.9 X10*3/uL (0.1-1.2); Monocytes Percent Auto 5.9 % (2-11); Neutrophils Absolute Auto 14.3 x10*3/uL (2.0-8.3); Neutrophils Percent Auto 89.4 % (45-73); Platelet Count 447 X10*3/uL (160-400); Red Blood Count 4.05 X10*6/uL (4.60-5.80); Red Cell Distribution Width 14.3 % (11.0-16.0)
[2022-06-13 07:03] LABS: Alanine Aminotransferase 32 U/L (0-40); Albumin Level 2.8 g/dL (3.5-5.0); Alkaline Phosphatase 114 U/L (39-117); Anion Gap 13 (12-20); Aspartate Amino Transferase 27 U/L (5-37); Bilirubin Total 1.1 mg/dL (0.0-1.0); Blood Urea Nitrogen 32 mg/dL (9-16); Calcium 8.5 mg/dL (8.4-10.2); Carbon Dioxide 24 mmol/L (22-29); Chloride 110 mmol/L (96-108); Creatinine Clr Calc Pharmacy 100.2; Estimated Glomerular Filt Rate > 60; Glucose Fasting 125 mg/dL (60-99); Potassium 4.5 mmol/L (3.3-5.1); Sodium 142 mmol/L (135-145); Total Protein 5.4 g/dL (6.5-8.0)
[2022-06-13] MEDS: 0.9 % Sodium Chloride Flush 3 ML SYRINGE IVFLUSH ×2 (09:23→15:52)
[2022-06-13] MEDS: Linezolid/D5W 600 MG/300 ML PIGGYBACK 300 MG IV ×2 (09:28→15:50)
[2022-06-13] MEDS: Enoxaparin Sodium 40 MG/0.4 ML SYRINGE SUBCUT (09:29)
[2022-06-13] MEDS: Finasteride 5 MG TABLET PO (09:29)
--- NOTE | 2022-06-13 10:40 | MHC.CM.PN ---
EMR reviewed, and per MD rounds, pt is not medically cleared for D/C due to ongoing need for IV antibiotics, and hi flow O2. CM will continue to follow.
--- NOTE | 2022-06-13 13:55 | P.PNIM_ITS ---
Subjective Subjective Date of Service: 06/13/22 Interval History: Resting comfortably complaining of leakage around Cotton catheter, requesting for urology eval, denies shortness of breath, no chest pain, no palpitation, no fevers, no chills remains on high-flow oxygen finger oximetry 95%. No acute events overnight. Review of Systems Review of Systems: Yes all other systems are reviewed and are negative Physical Exam Vital Signs: Vital Signs: Last Vital Signs Temp 97.1 F 06/13/22 11:40 Pulse 73 06/13/22 11:40 Resp 20 06/13/22 11:40 BP 180/80 H 06/13/22 11:40 Pulse Ox 95 06/13/22 11:40 O2 Del Method High Flow Nasal C annula 06/13/22 11:40 O2 Flow Rate 55 06/13/22 03:53 FiO2 100 06/13/22 03:53 Oxygen Flow Rate 8 06/06/22 12:12 BMI result Body Mass Index 29.9 Const: Other: General awake aler t x3, resting comf ortably in no acut e distress.? Neck? supple no JVD. CV S? regular rate rh ythm, Respiratory lungs clear upper lobes, coarse catrachita th sound/crackles at bases, no respi ratory distress Ga strointestinal abd omen soft, nontend er, bowel sounds a udible, no guardin g , no rigidity. E xtremities no jose a. Neuro moving al l 4 extremity, spe ech clear. Skin no rash Psych approp riate affect Cotton catheter with gregor ar urine Objective Data Active Medications Acetaminophen (Acetaminophen 325 Mg Tablet) 650 mg PO Q6H PRN PRN Reason: fever/pain Enoxaparin Sodium (Enoxaparin Sodium 40 Mg/0.4 Ml Syringe) 40 mg SUBCUT Q24H [facility] Last Admin: 06/13/22 09:29 Dose: 40 mg Documented By: ALEXANDRIA Finasteride (Finasteride 5 Mg Tablet) 5 mg PO DAILY [facility] Last Admin: 06/13/22 09:29 Dose: 5 mg Documented By: ALEXANDRIA Piperacillin Sod/Tazobactam (Sod 3.375 gm/ Sodium Chloride) 50 mls @ 100 mls/hr IV Q6H [facility] Last Infusion: 06/13/22 12:55 Dose: 0 mls/hr Documented By: ALEXANDRIA Methylprednisolone Sodium Succinate (Methylprednisolone Sod Succ 125 Mg/2 Ml Vial) 60 mg IVPUSH Q6H [facility] Last Admin: 06/13/22 09:28 Dose: 60 mg Documented By: ALEXANDRIA Pharmacy Consult (Consult Rx Perform Med Rec) 1 each MISCELLANE ONCE PRN PRN Reason: Consult order Sodium Chloride (0.9 % Sodium Chloride Flush 3 Ml Syringe) 3 ml IVFLUSH QSHIFT [facility] Last Admin: 06/13/22 09:23 Dose: 3 ml Documented By: ALEXANDRIA Tamsulosin HCl (Tamsulosin Hcl 0.4 Mg Capsule) 0.4 mg PO BEDTIME [facility] Last Admin: 06/12/22 21:12 Dose: 0.4 mg Documented By: ASHLI Labs 06/13/22 06:20 06/13/22 06:20 Labs: Laboratory Results - last 24 hr 06/13/22 06/13/22 06:20 06:20 MCV 87.4 MCH 27.9 MCHC 31.9 RDW 14.3 Plt Count 447 H MPV 10.5 Immature Gran % (Auto) 0.8 H Neut % (Auto) 89.4 H Lymph % (Auto) 3.8 L [place] % (Auto) 5.9 Eos % (Auto) 0.0 Baso % (Auto) 0.1 Lymph # (Auto) 0.6 L [place] # (Auto) 0.9 Eos # (Auto) 0.0 Baso # (Auto) 0.0 Abs Immat Gran (auto) 0.12 H Absolute Neuts (auto) 14.3 H Absolute Nucleated RBC 0.000 Nucleated RBC % (auto) 0.0 Anion Gap 13 Estim Creat Clear Calc 100.2 Estimated GFR > 60 Fasting Glucose 125 H Calcium 8.5 Total Bilirubin 1.1 H AST 27 ALT 32 Alkaline Phosphatase 114 Total Protein 5.4 L Albumin 2.8 L Assessment and Plan (1) Respiratory failure with hypoxia: Status: Acute (2) ILD (interstitial lung disease): Status: Acute Plan 87M PMH ILD, BPH presented with sob likely related to UTI exacerbation of IL day 1.Severe sepsis due to UTI (complicated by acute hypoxic respiratory failure complicated by ILD with acute decompensation) -urine culture grew VRE Obtained ID consult she rec.to DC IV vancomycin and Zosyn and place patient on linezolid 600 q.12 hours Leukocytosis due to steroids 2. Interstitial lung disease(acute decompensation) -continue pulse dose IV steroids -continue high-flow O2 and titrate as indicated with goal to reach nasal cannula, re-consult pulmonology since no improvement in oxygen requirement. 3. Urinary retention continue Cotton catheter obtain Urology consult due to leakage around the Cotton continue finasteride and Flomax 4. Elevated blood pressures with no prior history of hypertension will place on low-dose Norvasc follow BP closely. Lovenox Full code Requires ongoing hospitalization for IV antibiotics to treat UTI and also requiring high-flow oxygen for acute hypoxic respiratory failure Time Spent With Patient Time: Total time managing care of this patient today ____ minutes. Quality Stroke Does the patient have a stroke diagnosis?: No VTE Prior VTE?: No VTE Risk Level:: Medical - moderate - high VTE Device Contraindication: Treatment Not Indicated VTE Drug Contraindication: N/A - Med Ordered
[2022-06-13 15:01] LABS: Vancomycin Random 17.7 mcg/mL (15-20)
[2022-06-13] MEDS: amLODIPine Besylate 5 MG TABLET PO (15:50)
--- NOTE | 2022-06-13 15:56 | W.PM.IDCN ---
History of Present Illness Data of Consult Service Date: 06/13/22 Requesting physician: Mary Ramírez Primary Care Provider: Lewis Hanson MD HPI Reason for consult: weakness He presents with weakness and shortness of breath last 3-4 days. He is not a good historian He cannot express if has urinary complaints Urine shows enterococcus. Review of Systems Review of Systems: Yes Unobtainable due to mental condition PMFSH Past Medical History Medical History ILD (interstitial lung disease) No pertinent past medical history Respiratory failure with hypoxia Family History Family history: reviewed and not pertinent Surgical History Surgical History No pertinent past surgical history Social History Social History Household Members: Other Household Members Other:: Patient resides @ [facility] Housing: [place] Do you presently have visiting nurse or other home services: Yes Patient Tobacco Use Status: Former Tobacco user Quit Date: 30 years ago Tobacco use type: Cigarette Smoked in Last 30 Days: No e-Cigarette/Vaping Use: Never Used Second Hand Smoke Exposure: No Use of substances other than those prescribed or required for medical reasons: No Currently Displaying Signs/Symptoms of Drug Intoxication Withdrawal: No Have you been hit, kicked, punched, or otherwise hurt by someone within the past year? If so, by whom?: No Do you feel safe in your current relationship?: No Current Relationship Is there a partner from a previous relationship who is making you feel unsafe now?: No Are you made to feel afraid or neglected: No Advance Directives: Yes Advance Directives Information Provided: No Advance Directives on File: No Advance Directives Date on File: 06/06/22 Do you have thoughts of harming others: None Do you have a plan to hurt others: No Plan Recently lost weight without trying: No Eating poorly because of decreased appetite: No Nutrition Risks: No Nutritional Risk Poor oral hygiene: No service: No Current occupational status: retired Meds Allergies Allergy/AdvReac Type Severity Reaction Status Date / Time No Known Allergies Allergy Mild NONE Verified 05/24/22 15:15 Active Medications: Current Medications Acetaminophen (Acetaminophen 325 Mg Tablet) 650 mg PO Q6H PRN PRN Reason: fever/pain Amlodipine Besylate (Amlodipine Besylate 5 Mg Tablet) 5 mg PO DAILY [facility]; Protocol Last Admin: 06/13/22 15:50 Dose: 5 mg Enoxaparin Sodium (Enoxaparin Sodium 40 Mg/0.4 Ml Syringe) 40 mg SUBCUT Q24H [facility] Last Admin: 06/13/22 09:29 Dose: 40 mg Finasteride (Finasteride 5 Mg Tablet) 5 mg PO DAILY [facility] Last Admin: 06/13/22 09:29 Dose: 5 mg Linezolid (Zyvox/D5w) 600 mg in 300 mls @ 300 mls/hr IV Q12H [facility] Last Admin: 06/13/22 15:50 Dose: 300 mls/hr Methylprednisolone Sodium Succinate (Methylprednisolone Sod Succ 125 Mg/2 Ml Vial) 60 mg IVPUSH DAILY [facility] Pharmacy Consult (Consult Rx Perform Med Rec) 1 each MISCELLANE ONCE PRN PRN Reason: Consult order Sodium Chloride (0.9 % Sodium Chloride Flush 3 Ml Syringe) 3 ml IVFLUSH QSHIFT [facility] Last Admin: 06/13/22 15:52 Dose: 3 ml Tamsulosin HCl (Tamsulosin Hcl 0.4 Mg Capsule) 0.4 mg PO BEDTIME [facility] Last Admin: 06/12/22 21:12 Dose: 0.4 mg Home Medications Medication Instructions Recorded Confirmed Last Taken Type acetaminophen 325 mg tablet 650 mg PO Q6H PRN fever/pain 06/06/22 06/06/22 Unknown History bisacodyl 10 mg rectal suppository 10 mg MO Q3D PRN Constipation 06/06/22 06/06/22 Unknown History (Dulcolax (bisacodyl)) magnesium hydroxide 400 mg/5 mL 30 ml PO DAILY PRN Constipation 06/06/22 06/06/22 Unknown History oral suspension (Milk of Magnesia) sodium phosphates 19 gram-7 118 ml MO DAILY PRN Constipation 06/06/22 06/06/22 Unknown History gram/118 mL enema (Fleet Enema) Physical Exam Vital Signs: Vital Signs: Last Vital Signs Temp 97.1 F 06/13/22 11:40 Pulse 73 06/13/22 11:40 Resp 20 06/13/22 15:32 BP 180/80 H 06/13/22 11:40 Pulse Ox 95 06/13/22 11:40 O2 Del Method High Flow Nasal C annula 06/13/22 11:40 O2 Flow Rate 55 06/13/22 03:53 FiO2 100 06/13/22 03:53 Oxygen Flow Rate 8 06/06/22 12:12 BMI result Body Mass Index 29.9 Const: General: cooperative HEENT: Head: Yes normal to inspection Face and sinus: Yes normal facial exam Mouth: Normal oral and palatal mucosa present Teeth and gingiva: dentition normal Eyes: General: appearance normal, both eyes and all related structures Pupils: Equal, round and reactive pupils present Resp: Effort & Inspection: normal respiratory effort Cardio: Rate: regular rate Rhythm: regular rhythm GI: Palpation (GI): Soft to palpation and nontender : General: Yes no CVA tenderness Back/Spine/Pelvis: Back: no CVA tenderness Skin: General skin exam: no rashes or lesions noted Neuro: General: moves all extremities Cranial nerves: Yes Equal, round and reactive pupils present Extrem: General: Yes normal to inspection Psych: Other: some confusion Results Labs 06/13/22 06:20 06/13/22 06:20 Labs: Short CBC 06/13/22 Range/Units 06:20 WBC 16.0 H (4.8-10.8) X10*3/uL Hgb 11.3 L (14.0-18.0) g/dl Hct 35.4 L (42.0-52.0) % Plt Count 447 H (160-400) X10*3/uL BMP 06/13/22 06:20 Sodium 142 Potassium 4.5 Chloride 110 H Carbon Dioxide 24 BUN 32 H Creatinine 0.71 Calcium 8.5 Liver Function 06/13/22 Range/Units 06:20 Total Bilirubin 1.1 H (0.0-1.0) mg/dL AST 27 (5-37) U/L ALT 32 (0-40) U/L Alkaline Phosphatase 114 (39-117) U/L Albumin 2.8 L (3.5-5.0) g/dL Microbiology Microbiology Results: Microbiology 06/06/22 14:48 Blood - Venous Blood Culture - Final No growth after 5 days. 06/06/22 13:55 Blood - Venous Blood Culture - Final No growth after 5 days. 06/06/22 17:59 Urine Catheterized - Cotton Catheter Urine Culture - Final Enterococcus faecalis Assessment and Plan (1) ILD (interstitial lung disease): Status: Acute (2) Acute UTI: Status: Acute He has probable UTI as source of symptoms He has ILD and doesnt appear to have acute pneumonia. Hypoxia likely from ILD and hypoxia from UTI/early sepsis. (3) Bladder stone: Status: Acute Plan Would give Linezolid for 14 days cover urinary symptoms Time Spent With Patient Time: Total time managing care of this patient today ____ minutes.
[2022-06-13] MEDS: Tamsulosin HCL 0.4 MG CAPSULE PO (20:48)
[2022-06-14] VITALS (13 sets, daily range): BP systolic 122–168; BP diastolic 60–84; PULSE 54–71; RESP 17–21; TEMP 35.8–36.2; O2SAT 87–97
[2022-06-14] MEDS: Linezolid/D5W 600 MG/300 ML PIGGYBACK 300 MG IV (05:59)
--- NOTE | 2022-06-14 07:00 | CA_ITS ---
Transthoracic Echocardiogram Patient (Last, First, Middle): Jose Ruth T Gender: Male Date of : 1935 Age: 87 Procedure Date: 06/14/2022 Procedure Type: Transthoracic Echocardiogram Location: [facility] Height: 193. cm Weight: 111.59 kg BSA: 2.42 m2 Heart Rate: 61 bpm BP: 180 / 80 mmHg Web Production Designer: KYLAH Referring MD: Chris Parker MD Symptoms: dyspnea Study Quality: Adequate/Contrast ECG Rhythm: Sinus Conclusions: - Normal left ventricular size and systolic function. There is mildly increased left ventricular wall thickness. The visually estimated ejection fraction is between 55-60%. - The basal inferoseptal segment is hypokinetic. - The basal inferior segment is akinetic. - Mildly increased right ventricular cavity size. There is borderline right ventricular systolic function. - There is mild to moderate tricuspid valve regurgitation. The right ventricular systolic pressure is 44 mmHg. Normal right atrial pressure. Mild pulmonary hypertension is present. Findings Procedure Information Contrast agent, definity, is being given per protocol without apparent complications. Left Ventricle Normal left ventricular size and systolic function. There is mildly increased left ventricular wall thickness. The visually estimated ejection fraction is between 55-60%. There is evidence of regional wall motion abnormalities. Abnormal diastolic function is noted. Spectral Doppler is indicative of an impaired relaxation filling pattern. E/E prime ratio is >15, consistent with elevated filling pressures. Wall Motion Rest Echo Findings The basal inferoseptal segment is hypokinetic. The basal inferior segment is akinetic. Right Ventricle Mildly increased right ventricular cavity size. There is borderline right ventricular systolic function. Atria The left atrium is normal in size. The right atrium is normal in size. Aortic Valve Normal aortic valve structure and function. There is no aortic valve stenosis. There is no aortic valve regurgitation. Mitral Valve Normal mitral valve structure and function. There is trace mitral valve regurgitation. There is no mitral valve stenosis. Pulmonic Valve The pulmonic valve is likely normal. Tricuspid Valve Normal tricuspid valve structure. There is mild to moderate tricuspid valve regurgitation. The right ventricular systolic pressure is 44 mmHg. Normal right atrial pressure. Mild pulmonary hypertension is present. Great Vessels All visible segments of the aorta are normal in size. The visualized portions of the pulmonary artery and branches are normal. Venous The inferior vena cava is normal in size and collapses greater than 50% with inspiration. Pericardium/Pleural There is no evidence of pericardial effusion. Prior Study Comparison No prior study available for comparison. Measurements 2D Linear Measurements IVSd: 1.26 0.6-0.9/0.6-1.0 cm LVIDd: 4.64 3.9-5.3/4.2-5.9 cm LVIDd Index: 1.92 2.4-3.2/2.2-3.1 cm/m2 LVIDs: 3.04 2.0-3.6 cm LVPWd: 1.23 0.7-1.1 cm LA Diam: 3.60 2.7-3.8/3.0-4.0 cm LAIDs Index: 1.49 1.5-2.3 cm/m2 LV Mass: 273.07 67-162/88-224 g LV Mass Index: 112.84 43-95/49-115 g/m2 LVOT Diam: 2.00 3.0+(-)1.3 cm 2D Systolic Function EF 4C: 47.90 >55% EF 2C: 61.60 >55% EF BiP: 56.30 >55% Mitral Valve MV Pk E: 0.86 MV PK A: 1.16 MV Decel Time: 222.00 E/A: 0.70 E'Lateral: 5.55 E'Medial: 4.90 E/E' Med: 17.60 E/E' Lat: 15.50 PHT: 65.00 MVA PHT: 3.38 Decel [place]: 3.89 Aortic Valve AoV Pk Melvin: 1.26 AoV Mn Melvin: 0.92 AoV VTI: 0.33 AoV Pk Grad: 6.00 Aov Mn Grad: 4.00 SACHI Cont.VTI: 2.06 LVOT LVOT Pk Melvin: 0.87 LVOT Mn Melvin: 0.63 LVOT VTI: 0.22 LVOT Pk Grad: 3.00 LVOT Mn Grad: 2.00 LVOT Diam: 2.00 LVOT Area: 3.14 Diastolic Function MV Pk E: 0.86 MV Pk A: 1.16 E/A: 0.70 E'Medial: 4.90 E/E' Med: 17.60 E' Laterial: 5.55 E/E' Lat: 15.50 Right Ventricle TAPSE (mm): 23.90 TVS' Melvin: 10.00 Tricuspid Valve TR Pk Melvin: 3.20 TR Pk Grad: 41.00 RA Press: 3.00 RVSP: 44.00 Great Vessels Aorta Sinus of Valsalva: 3.00 2.0-3.5 cm Ao Asc: 3.30 2.1-3.4 cm Pulmonary Valve PV Pk Melvin: 1.09 Peak PV Grad: 5.00 Updated in Other Vendor System with Status of Final David Boss MD electronically signed on 06/15/2022 2:50:44 PM with status of Final
[2022-06-14 07:50] LABS: Basophils Percent Auto 0.1 % (0-2); Hematocrit 38.1 % (42.0-52.0); Hemoglobin 12.2 g/dl (14.0-18.0); Imm Gran Abs Auto 0.18 X10*3/uL (0.00-0.03); Imm Gran Pct Auto 0.8 % (0.0-0.4); Lymphocytes Absolute Auto 1.1 X10*3/uL (1.2-4.9); Lymphocytes Percent Auto 5.1 % (20-40); MANUAL DIFF FLAG SCAN; Mean Corpuscular Hemoglobin 27.6 pg (27.0-33.0); Mean Corpuscular Volume 86.2 fL (80.0-98.0); Mean Platelet Volume 10.5 fL (9.4-12.4); Monocytes Absolute Auto 1.9 X10*3/uL (0.1-1.2); Monocytes Percent Auto 8.6 % (2-11); Neutrophils Absolute Auto 18.6 x10*3/uL (2.0-8.3); Neutrophils Percent Auto 85.4 % (45-73); Platelet Count 506 X10*3/uL (160-400); Red Blood Count 4.42 X10*6/uL (4.60-5.80); Red Cell Distribution Width 14.3 % (11.0-16.0); SCAN SMEAR FLAG 1; White Blood Count 21.7 X10*3/uL (4.8-10.8)
[2022-06-14 08:04] LABS: Alanine Aminotransferase 33 U/L (0-40); Albumin Level 2.9 g/dL (3.5-5.0); Alkaline Phosphatase 118 U/L (39-117); Anion Gap 14 (12-20); Aspartate Amino Transferase 24 U/L (5-37); Blood Urea Nitrogen 30 mg/dL (9-16); Calcium 8.5 mg/dL (8.4-10.2); Carbon Dioxide 25 mmol/L (22-29); Chloride 107 mmol/L (96-108); Creatinine Clr Calc Pharmacy 109.5; Estimated Glomerular Filt Rate > 60; Glucose Fasting 81 mg/dL (60-99); Potassium 4.3 mmol/L (3.3-5.1); Sodium 142 mmol/L (135-145); Total Protein 5.4 g/dL (6.5-8.0)
[2022-06-14] MEDS: Finasteride 5 MG TABLET PO (08:24)
[2022-06-14] MEDS: amLODIPine Besylate 5 MG TABLET PO (08:24)
[2022-06-14] MEDS: methylPREDNISolone Sod Succ 125 MG/2 ML VIAL 60 MG IVPUSH (08:24)
[2022-06-14] MEDS: Enoxaparin Sodium 40 MG/0.4 ML SYRINGE SUBCUT (08:24)
[2022-06-14] MEDS: 0.9 % Sodium Chloride Flush 3 ML SYRINGE IVFLUSH ×2 (08:24→17:08)
[2022-06-14 08:48] LABS: SLIDE REVIEW VERIFIED
--- NOTE | 2022-06-14 15:58 | P.PNIM_ITS ---
Subjective Subjective Date of Service: 06/15/22 Interval History: Resting comfortably offers no complaints of shortness of breath, no cough, no pain complaining of persistent leakage around the Cotton catheter, has been bed- bound since hospitalization due to hypoxia on high-flow oxygen. Review of Systems Review of Systems: Yes all other systems are reviewed and are negative Physical Exam Vital Signs: Vital Signs: Last Vital Signs Temp 96.5 F L 06/14/22 11:31 Pulse 61 06/14/22 11:31 Resp 20 06/14/22 15:32 BP 166/74 H 06/14/22 11:31 Pulse Ox 93 06/14/22 11:31 O2 Del Method High Flow Nasal C annula 06/14/22 11:31 O2 Flow Rate 55 06/14/22 11:31 FiO2 100 06/14/22 11:31 Oxygen Flow Rate 8 06/06/22 12:12 BMI result Body Mass Index 29.9 Const: Other: General awake alert x3, resting comfortably in no acute distress.? Neck??supple no JVD. CVS? regular rate rhythm, Respiratory lungs clear upper lobes, coarse breath sound/cracklesat bases, no respiratory distress Gastrointestinal abdomen soft, non tender, bowel sounds audible, no guarding , no rigidity. Extremities no edema. Neuro moving all 4 extremity, speech clear. Skin no?rash Psych appropriate affect Cotton?catheter with clear urine Objective Data Active Medications Acetaminophen (Acetaminophen 325 Mg Tablet) 650 mg PO Q6H PRN PRN Reason: fever/pain Amlodipine Besylate (Amlodipine Besylate 5 Mg Tablet) 5 mg PO DAILY [facility]; Protocol Last Admin: 06/14/22 08:24 Dose: 5 mg Documented By: ALEXANDRIA Enoxaparin Sodium (Enoxaparin Sodium 40 Mg/0.4 Ml Syringe) 40 mg SUBCUT Q24H [facility] Last Admin: 06/14/22 08:24 Dose: 40 mg Documented By: ALEXANDRIA Finasteride (Finasteride 5 Mg Tablet) 5 mg PO DAILY [facility] Last Admin: 06/14/22 08:24 Dose: 5 mg Documented By: ALEXANDRIA Linezolid (Linezolid 600 Mg Tablet) 600 mg PO BID [facility] Methylprednisolone Sodium Succinate (Methylprednisolone Sod Succ 125 Mg/2 Ml Via l) 60 mg IVPUSH DAILY [facility] Last Admin: 06/14/22 08:24 Dose: 60 mg Documented By: ALEXANDRIA Pharmacy Consult (Consult Rx Perform Med Rec) 1 each MISCELLANE ONCE PRN PRN Reason: Consult order Sodium Chloride (0.9 % Sodium Chloride Flush 3 Ml Syringe) 3 ml IVFLUSH QSHIFT [facility] Last Admin: 06/14/22 08:24 Dose: 3 ml Documented By: ALEXANDRIA Tamsulosin HCl (Tamsulosin Hcl 0.4 Mg Capsule) 0.4 mg PO BEDTIME [facility] Last Admin: 06/13/22 20:48 Dose: 0.4 mg Documented By: ASHLI Labs 06/14/22 06:50 06/14/22 06:50 Labs: Laboratory Results - last 24 hr 06/14/22 06/14/22 06:50 06:50 MCV 86.2 MCH 27.6 MCHC 32.0 RDW 14.3 Plt Count 506 H MPV 10.5 Immature Gran % (Auto) 0.8 H Neut % (Auto) 85.4 H Lymph % (Auto) 5.1 L Gilchrist % (Auto) 8.6 Eos % (Auto) 0.0 Baso % (Auto) 0.1 Lymph # (Auto) 1.1 L Gilchrist # (Auto) 1.9 H Eos # (Auto) 0.0 Baso # (Auto) 0.0 Abs Immat Gran (auto) 0.18 H Absolute Neuts (auto) 18.6 H Absolute Nucleated RBC 0.000 Nucleated RBC % (auto) 0.0 Smear Tech's Comments VERIFIED Anion Gap 14 Estim Creat Clear Calc 109.5 Estimated GFR > 60 Fasting Glucose 81 Calcium 8.5 Total Bilirubin 1.0 AST 24 ALT 33 Alkaline Phosphatase 118 H Total Protein 5.4 L Albumin 2.9 L Assessment and Plan (1) Respiratory failure with hypoxia: Status: Acute (2) ILD (interstitial lung disease): Status: Acute Plan 87M PMH ILD, BPH presented with sob likely related to UTI exacerbation of IL day 1.Severe sepsis due to UTI (complicated by acute hypoxic respiratory failure complicated by ILD with acute decompensation) -urine culture grew VRE s/p IV vancomycin and Zosyn now on iv linezolid 600 q.12 hours, will transition to by mouth linezolid as per ID recommendation Leukocytosis due to steroids 2. Interstitial lung disease(acute decompensation) -continue IV steroids -continue high-flow O2 and titrate as indicated with goal to reach nasal cannula, Consulted gear repairer case d/w Dr. Parker he recommended echocardiogram to rule out CHF and agreed with above treatment 3. Urinary retention continue Cotton catheter await Urology input for leakage around the Cotton continue finasteride and Flomax 4. Elevated blood pressures with no prior history of hypertension, started on low-dose Norvasc 5 mg daily, blood pressure improving continue to follow BP closely. Lovenox Full code Requires ongoing hospitalization for IV antibiotics to treat UTI and also requiring high-flow oxygen for acute hypoxic respiratory failure. Time Spent With Patient Time: Total time managing care of this patient today ____ minutes. Quality Stroke Does the patient have a stroke diagnosis?: No VTE Prior VTE?: No VTE Risk Level:: Medical - moderate - high VTE Device Contraindication: Treatment Not Indicated VTE Drug Contraindication: N/A - Med Ordered
[2022-06-14] MEDS: Tamsulosin HCL 0.4 MG CAPSULE PO (21:41)
[2022-06-14] MEDS: Linezolid 600 MG TABLET PO (21:41)
[2022-06-15] VITALS (10 sets, daily range): BP systolic 132–152; BP diastolic 60–77; PULSE 59–72; RESP 15–94; TEMP 35.8–36.4; O2SAT 18–95
[2022-06-15 08:12] LABS: Basophils Percent Auto 0.1 % (0-2); Hematocrit 37.8 % (42.0-52.0); Hemoglobin 12.1 g/dl (14.0-18.0); Imm Gran Pct Auto 0.8 % (0.0-0.4); Lymphocytes Absolute Auto 0.9 X10*3/uL (1.2-4.9); Lymphocytes Percent Auto 3.6 % (20-40); MANUAL DIFF FLAG SCAN; Mean Corpuscular Hemoglobin 27.7 pg (27.0-33.0); Mean Corpuscular Volume 86.5 fL (80.0-98.0); Mean Platelet Volume 10.7 fL (9.4-12.4); Monocytes Absolute Auto 1.7 X10*3/uL (0.1-1.2); Monocytes Percent Auto 6.7 % (2-11); Neutrophils Percent Auto 88.8 % (45-73); Platelet Count 497 X10*3/uL (160-400); Red Blood Count 4.37 X10*6/uL (4.60-5.80); Red Cell Distribution Width 14.6 % (11.0-16.0); SCAN SMEAR FLAG 1; White Blood Count 24.8 X10*3/uL (4.8-10.8)
[2022-06-15] MEDS: methylPREDNISolone Sod Succ 125 MG/2 ML VIAL 60 MG IVPUSH (08:12)
[2022-06-15] MEDS: Finasteride 5 MG TABLET PO (08:13)
[2022-06-15] MEDS: Linezolid 600 MG TABLET PO ×2 (08:14→22:32)
[2022-06-15] MEDS: amLODIPine Besylate 5 MG TABLET PO (08:14)
[2022-06-15] MEDS: Enoxaparin Sodium 40 MG/0.4 ML SYRINGE SUBCUT (08:14)
[2022-06-15] MEDS: 0.9 % Sodium Chloride Flush 3 ML SYRINGE IVFLUSH ×3 (08:15→22:33)
[2022-06-15 08:27] LABS: Alanine Aminotransferase 29 U/L (0-40); Albumin Level 2.8 g/dL (3.5-5.0); Alkaline Phosphatase 112 U/L (39-117); Anion Gap 14 (12-20); Aspartate Amino Transferase 19 U/L (5-37); Bilirubin Total 1.1 mg/dL (0.0-1.0); Blood Urea Nitrogen 35 mg/dL (9-16); Calcium 8.5 mg/dL (8.4-10.2); Carbon Dioxide 26 mmol/L (22-29); Chloride 107 mmol/L (96-108); Creatinine Clr Calc Pharmacy 103.1; Estimated Glomerular Filt Rate > 60; Glucose Fasting 86 mg/dL (60-99); Potassium 4.5 mmol/L (3.3-5.1); Sodium 142 mmol/L (135-145); Total Protein 5.1 g/dL (6.5-8.0)
[2022-06-15 08:48] LABS: SLIDE REVIEW VERIFIED
--- NOTE | 2022-06-15 11:01 | MHC.CM.PN ---
Per ROUNDS discussion, Patient remains on high flow O2 and is not yet medically cleared for dc. Returning to [facility] is the goal and CM will continue to follow.
--- NOTE | 2022-06-15 16:26 | HO.PM.IMPN ---
Subjective Subjective Date of Service: 06/16/22 Interval History: Resting comfortably no acute events overnight denies chest pain, no shortness of breath, no lightheadedness, no dizziness, patient remains in bed since on high-flow oxygen cannot participate in physical therapy, tolerating diet no nausea, no vomiting, no abdominal pain, no diarrhea, continue to complain of leakage around Cotton catheter . Review of Systems Review of Systems: Yes all other systems are reviewed and are negative Physical Exam Vital Signs: Vital Signs: Last Vital Signs Temp 97.5 F 06/15/22 15:27 Pulse 72 06/15/22 15:27 Resp 20 06/15/22 15:33 BP 140/66 H 06/15/22 15:27 Pulse Ox 90 L 06/15/22 15:27 O2 Del Method High Flow Nasal C annula 06/15/22 15:27 O2 Flow Rate 50 06/15/22 15:27 FiO2 90 06/15/22 15:27 Oxygen Flow Rate 8 06/06/22 12:12 BMI result Body Mass Index 29.9 Const: Other: General awake alert x3, resting comfortably in no acute distress.? Neck??supple no JVD. CVS? regular rate rhythm, Respiratory lungs clear upper lobes, coarse breath sound/crackles at bases, no respiratory distress. A Gastrointestinal abdomen soft, non tender, bowel sounds audible, no guarding , no rigidity. Extremities no edema. Neuro moving all 4 extremity, speech clear. Skin no?rash Psych appropriate affect Cotton?catheter with clear urine Objective Data Active Medications Acetaminophen (Acetaminophen 325 Mg Tablet) 650 mg PO Q6H PRN PRN Reason: fever/pain Amlodipine Besylate (Amlodipine Besylate 5 Mg Tablet) 5 mg PO DAILY [facility]; Protocol Last Admin: 06/15/22 08:14 Dose: 5 mg Documented By: FRITZ Enoxaparin Sodium (Enoxaparin Sodium 40 Mg/0.4 Ml Syringe) 40 mg SUBCUT Q24H [facility] Last Admin: 06/15/22 08:14 Dose: 40 mg Documented By: FRITZ Finasteride (Finasteride 5 Mg Tablet) 5 mg PO DAILY [facility] Last Admin: 06/15/22 08:13 Dose: 5 mg Documented By: FRITZ Furosemide (Furosemide 40 Mg/4 Ml Vial) 40 mg IVPUSH DAILY [facility]; Protocol Linezolid (Linezolid 600 Mg Tablet) 600 mg PO BID [facility] Last Admin: 06/15/22 08:14 Dose: 600 mg Documented By: FRITZ Methylprednisolone Sodium Succinate (Methylprednisolone Sod Succ 125 Mg/2 Ml Vial) 60 mg IVPUSH DAILY [facility] Last Admin: 06/15/22 08:12 Dose: 60 mg Documented By: FRITZ Pharmacy Consult (Consult Rx Perform Med Rec) 1 each MISCELLANE ONCE PRN PRN Reason: Consult order Sodium Chloride (0.9 % Sodium Chloride Flush 3 Ml Syringe) 3 ml IVFLUSH QSHIFT [facility] Last Admin: 06/15/22 08:15 Dose: 3 ml Documented By: FRITZ Tamsulosin HCl (Tamsulosin Hcl 0.4 Mg Capsule) 0.4 mg PO BEDTIME [facility] Last Admin: 06/14/22 21:41 Dose: 0.4 mg Documented By: ASHLI Labs 06/15/22 07:24 06/15/22 07:24 Labs: Laboratory Results - last 24 hr 06/15/22 06/15/22 07:24 07:24 MCV 86.5 MCH 27.7 MCHC 32.0 RDW 14.6 Plt Count 497 H MPV 10.7 Immature Gran % (Auto) 0.8 H Neut % (Auto) 88.8 H Lymph % (Auto) 3.6 L [place] % (Auto) 6.7 Eos % (Auto) 0.0 Baso % (Auto) 0.1 Lymph # (Auto) 0.9 L [place] # (Auto) 1.7 H Eos # (Auto) 0.0 Baso # (Auto) 0.0 Abs Immat Gran (auto) 0.20 H Absolute Neuts (auto) 22.0 H Absolute Nucleated RBC 0.000 Nucleated RBC % (auto) 0.0 Smear Tech's Comments VERIFIED Anion Gap 14 Estim Creat Clear Calc 103.1 Estimated GFR > 60 Fasting Glucose 86 Calcium 8.5 Total Bilirubin 1.1 H AST 19 ALT 29 Alkaline Phosphatase 112 Total Protein 5.1 L Albumin 2.8 L Assessment and Plan (1) Respiratory failure with hypoxia: Status: Acute (2) ILD (interstitial lung disease): Status: Acute Plan 87M PMH ILD, BPH presented with sob likely related to UTI exacerbation of IL day 1.Severe sepsis due to UTI (complicated by acute hypoxic respiratory failure complicated by ILD with acute decompensation) -urine culture grew VRE s/p IV vancomycin and Zosyn now on po linezolid 600 q.12 hours started 06/13 for total 14 days, case discussed with ID. Leukocytosis due to steroids 2. Acute hypoxic respiratory failure with history Interstitial lung disease(acute decompensation) -continue IV steroids 40 mg daily -continue high-flow O2 and titrate as indicated with goal to reach nasal cannula Echocardiogram showed wall motion abnormalities, EF 55-60% and abnormal diastolic function, BNP 87 on 06/06, no chest pain , 6,200 positive since admission Will give IV lasix monitor BMP/BNP and clinical course, will discuss treatment plan with pulmonology. 3. Urinary retention continue Cotton catheter sent message to Dr. Ponce regarding leakage around the Cotton cath,continue finasteride and Flomax. 4. Elevated blood pressures with no prior history of hypertension, started on low-dose Norvasc 5 mg daily, added lasix follow BP closely. Lovenox Full code Requires ongoing hospitalization for IV antibiotics to treat UTI and also requiring high-flow oxygen for acute hypoxic respiratory failure. Time Spent With Patient Time: Total time managing care of this patient today ____ minutes. Quality Stroke Does the patient have a stroke diagnosis?: No VTE Prior VTE?: No VTE Risk Level:: Medical - moderate - high VTE Device Contraindication: Treatment Not Indicated VTE Drug Contraindication: N/A - Med Ordered
[2022-06-15] MEDS: Furosemide 40 MG/4 ML VIAL IVPUSH (17:09)
--- NOTE | 2022-06-15 18:34 | PC.NURSE ---
Cotton catheter has yeiled little to no output this afternoon, attempted to irrigate but main line is clogged, secondary line flushes and was able to drain 900cc
[2022-06-15] MEDS: Tamsulosin HCL 0.4 MG CAPSULE PO (22:32)
[2022-06-16] VITALS (12 sets, daily range): BP systolic 129–150; BP diastolic 60–65; PULSE 57–86; RESP 15–24; TEMP 35.9–36.4; O2SAT 90–95
--- NOTE | 2022-06-16 05:22 | PC.NURSE ---
Pt now has pink tinged urine draining out of joaquin. BS was 169. Emptied 400cc. MD Keating notified.
--- NOTE | 2022-06-16 05:30 | PC.NURSE ---
Pt had desated to 70s. HOB was elevated and Pt encouraged to take slow deep breaths to no effect. Pt placed on NRB to recover and that brought Pt up to 93%. Respiratory came and increased settings on HFNC. Pt is now at 55L at 100%.
[2022-06-16 07:17] LABS: Creatinine Clr Calc Pharmacy 91.2; Estimated Glomerular Filt Rate > 60
[2022-06-16] MEDS: methylPREDNISolone Sod Succ 125 MG/2 ML VIAL 60 MG IVPUSH (10:27)
[2022-06-16] MEDS: 0.9 % Sodium Chloride Flush 3 ML SYRINGE IVFLUSH ×2 (10:28→17:33)
[2022-06-16] MEDS: amLODIPine Besylate 5 MG TABLET PO (10:28)
[2022-06-16] MEDS: Enoxaparin Sodium 40 MG/0.4 ML SYRINGE SUBCUT (10:28)
[2022-06-16] MEDS: Linezolid 600 MG TABLET PO ×2 (10:28→22:25)
[2022-06-16] MEDS: Finasteride 5 MG TABLET PO (10:28)
[2022-06-16] MEDS: Furosemide 40 MG/4 ML VIAL IVPUSH (10:28)
--- NOTE | 2022-06-16 14:49 | P.PNIM_ITS ---
Subjective Subjective Date of Service: 06/16/22 Interval History: being followed for persistent hypoxic respiratory failure requiring high-flow oxygen, patient resting comfortably offers no acute complaints of chest pain, no shortness of breath, no lightheadedness or dizziness, tolerating diet with no nausea, no vomiting, no abdominal pain concern about persistent for leakage around Cotton catheter, no fevers no chills no change in oxygen requirement overnight required 100% non-rebreather mask since oxygenation dropped down to 88 89% Review of Systems Review of Systems: Yes all other systems are reviewed and are negative Physical Exam Vital Signs: Vital Signs: Last Vital Signs Temp 97.6 F 06/16/22 12:00 Pulse 67 06/16/22 12:00 Resp 18 06/16/22 14:31 BP 148/65 H 06/16/22 12:00 Pulse Ox 92 06/16/22 12:00 O2 Del Method High Flow Nasal C annula 06/16/22 12:00 O2 Flow Rate 55 06/16/22 04:00 FiO2 100 06/16/22 04:00 Oxygen Flow Rate 8 06/06/22 12:12 BMI result Body Mass Index 29.9 Const: Other: General awake alert x3, resting comfortably in no acute distress.? Neck??supple no JVD. CVS? regular rate rhythm, Respiratory lungs clear upper lobes, coarse breath sound/crackles at bases, no respiratory distress.? A Gastrointestinal abdomen soft, non tender, bowel sounds audible, no guarding , no rigidity. Extremities no edema. Neuro moving all 4 extremity, speech clear. Skin no?rash Psych appropriate affect Cotton?catheter with hematuria ,clear urine in tubing Objective Data Active Medications Acetaminophen (Acetaminophen 325 Mg Tablet) 650 mg PO Q6H PRN PRN Reason: fever/pain Amlodipine Besylate (Amlodipine Besylate 5 Mg Tablet) 5 mg PO DAILY [facility]; Protocol Last Admin: 06/16/22 10:28 Dose: 5 mg Documented By: ELISEO Enoxaparin Sodium (Enoxaparin Sodium 40 Mg/0.4 Ml Syringe) 40 mg SUBCUT Q24H [facility] Last Admin: 06/16/22 10:28 Dose: 40 mg Documented By: ELISEO Finasteride (Finasteride 5 Mg Tablet) 5 mg PO DAILY [facility] Last Admin: 06/16/22 10:28 Dose: 5 mg Documented By: ELISEO Furosemide (Furosemide 40 Mg/4 Ml Vial) 40 mg IVPUSH DAILY [facility]; Protocol Last Admin: 06/16/22 10:28 Dose: 40 mg Documented By: ELISEO Linezolid (Linezolid 600 Mg Tablet) 600 mg PO BID [facility] Last Admin: 06/16/22 10:28 Dose: 600 mg Documented By: ELISEO Methylprednisolone Sodium Succinate (Methylprednisolone Sod Succ 125 Mg/2 Ml Vial) 60 mg IVPUSH DAILY [facility] Last Admin: 06/16/22 10:27 Dose: 60 mg Documented By: ELISEO Pharmacy Consult (Consult Rx Perform Med Rec) 1 each MISCELLANE ONCE PRN PRN Reason: Consult order Sodium Chloride (0.9 % Sodium Chloride Flush 3 Ml Syringe) 3 ml IVFLUSH QSHIFT [facility] Last Admin: 06/16/22 10:28 Dose: 3 ml Documented By: ELISEO Tamsulosin HCl (Tamsulosin Hcl 0.4 Mg Capsule) 0.4 mg PO BEDTIME [facility] Last Admin: 06/15/22 22:32 Dose: 0.4 mg Documented By: JERMAINE-SAMINAM Labs 06/15/22 07:24 06/16/22 06:32 Labs: Laboratory Results - last 24 hr 06/16/22 06:32 Estim Creat Clear Calc 91.2 Estimated GFR > 60 Assessment and Plan (1) Respiratory failure with hypoxia: Status: Acute (2) ILD (interstitial lung disease): Status: Acute Plan 87M PMH ILD, BPH presented with sob likely related to UTI exacerbation of IL day 1.Severe sepsis due to UTI (complicated by acute hypoxic respiratory failure complicated by ILD with acute decompensation) -urine culture grew VRE s/p IV vancomycin and Zosyn now on po linezolid 600 q.12 hours started 06/13 for total 14 days Leukocytosis due to steroids, follow clinical course 2. Acute hypoxic respiratory failure with history Interstitial lung disease(acute decompensation) -continue IV steroids 40 mg daily - no change in oxygen requirement,continue high-flow O2 and titrate as indicated with goal to reach nasal cannula Echocardiogram showed wall motion abnormalities, EF 55-60% and abnormal diastolic function, BNP 87 on 06/06, no chest pain , 6,200 positive since admission cont. IV lasix 40mg /d ,monitor BMP/BNP 87 at baseline follow clinical course, case discussed with Dr. Parker he agrees with treatment plan and recommends to continue diuretics for next few days. 3. Urinary retention continue Cotton catheter 1 port is blocked, other port functioning well sent messages to urology to Dr. Ponce/Dr Ivy regarding leakage around the Cotton cath,and blockage,continue finasteride and Flomax. 4. Elevated blood pressures started on low-dose Norvasc 5 mg daily, added lasix , better blood pressure control. Lovenox Full code Requires ongoing hospitalization for IV antibiotics to treat UTI and also requiring high-flow oxygen for acute hypoxic respiratory failure. Time Spent With Patient Time: Total time managing care of this patient today ____ minutes. Quality Stroke Does the patient have a stroke diagnosis?: No VTE Prior VTE?: No VTE Risk Level:: Medical - moderate - high VTE Device Contraindication: Treatment Not Indicated VTE Drug Contraindication: N/A - Med Ordered
--- NOTE | 2022-06-16 18:06 | PC.NURSE ---
Patient chronic joaquin obstructed, does not drain from main line. Urology was due to assess today but did not show. joaquin s draining through secondary line and requires frequent flushing, urine is blood tinged.
[2022-06-16] MEDS: Tamsulosin HCL 0.4 MG CAPSULE PO (22:25)
[2022-06-17] VITALS (11 sets, daily range): BP systolic 124–148; BP diastolic 61–66; PULSE 66–93; RESP 16–20; TEMP 36.1–37; O2SAT 90–98
[2022-06-17] MEDS: amLODIPine Besylate 5 MG TABLET PO (10:15)
[2022-06-17] MEDS: Furosemide 40 MG/4 ML VIAL IVPUSH (10:16)
[2022-06-17] MEDS: Enoxaparin Sodium 40 MG/0.4 ML SYRINGE SUBCUT (10:16)
[2022-06-17] MEDS: Finasteride 5 MG TABLET PO (10:16)
[2022-06-17] MEDS: Linezolid 600 MG TABLET PO ×2 (10:16→19:55)
[2022-06-17] MEDS: methylPREDNISolone Sod Succ 125 MG/2 ML VIAL 60 MG IVPUSH (10:17)
[2022-06-17] MEDS: 0.9 % Sodium Chloride Flush 3 ML SYRINGE IVFLUSH ×3 (10:17→22:32)
--- NOTE | 2022-06-17 10:31 | MHC.CM.PN ---
Per ROUNDS discussion, Patient has Hematuria and is still requiring High Flow O2. Patient is not yet medically cleared for dc; returning to [facility] is the goal. CM will follow.
--- NOTE | 2022-06-17 14:02 | P.PNIM_ITS ---
Subjective Subjective Date of Service: 06/17/22 Interval History: Offers no acute complaints sitting comfortably, patient Cotton catheter port was blocked, noted to have hematuria overnight, patient denies fever chills, no urinary symptoms no shortness of breath no cough no overnight events. Review of Systems Review of Systems: Yes all other systems are reviewed and are negative Physical Exam Vital Signs: Vital Signs: Last Vital Signs Temp 97.0 F 06/17/22 11:09 Pulse 70 06/17/22 11:09 Resp 16 06/17/22 11:45 BP 133/63 06/17/22 11:09 Pulse Ox 96 06/17/22 11:09 O2 Del Method High Flow Nasal C annula 06/17/22 11:09 O2 Flow Rate 45 06/17/22 11:09 FiO2 77.3 06/17/22 11:09 Oxygen Flow Rate 8 06/06/22 12:12 BMI result Body Mass Index 29.9 Const: Other: General awake alert x3, resting comfortably in no acute distress.? Neck??supple no JVD. CVS? regular rate rhythm, Respiratory lungs clear upper lobes, coarse breath sound/crackles at bases, no respiratory distress.? A Gastrointestinal abdomen soft, non tender, bowel sounds audible, no guarding , no rigidity. Extremities no edema. Neuro moving all 4 extremity, speech clear. Skin no?rash Psych appropriate affect Cotton?catheter with hematuria Objective Data Active Medications Acetaminophen (Acetaminophen 325 Mg Tablet) 650 mg PO Q6H PRN PRN Reason: fever/pain Amlodipine Besylate (Amlodipine Besylate 5 Mg Tablet) 5 mg PO DAILY [facility]; Protocol Last Admin: 06/17/22 10:15 Dose: 5 mg Documented By: GOPAL Enoxaparin Sodium (Enoxaparin Sodium 40 Mg/0.4 Ml Syringe) 40 mg SUBCUT Q24H [facility] Last Admin: 06/17/22 10:16 Dose: 40 mg Documented By: GOPAL Finasteride (Finasteride 5 Mg Tablet) 5 mg PO DAILY [facility] Last Admin: 06/17/22 10:16 Dose: 5 mg Documented By: GOPAL Furosemide (Furosemide 40 Mg/4 Ml Vial) 40 mg IVPUSH DAILY [facility]; Protocol Last Admin: 06/17/22 10:16 Dose: 40 mg Documented By: GOPAL Linezolid (Linezolid 600 Mg Tablet) 600 mg PO BID [facility] Last Admin: 06/17/22 10:16 Dose: 600 mg Documented By: GOPAL Methylprednisolone Sodium Succinate (Methylprednisolone Sod Succ 125 Mg/2 Ml Vial) 60 mg IVPUSH DAILY [facility] Last Admin: 06/17/22 10:17 Dose: 60 mg Documented By: GOPAL Pharmacy Consult (Consult Rx Perform Med Rec) 1 each MISCELLANE ONCE PRN PRN Reason: Consult order Sodium Chloride (0.9 % Sodium Chloride Flush 3 Ml Syringe) 3 ml IVFLUSH QSHIFT [facility] Last Admin: 06/17/22 10:17 Dose: 3 ml Documented By: GOPAL Tamsulosin HCl (Tamsulosin Hcl 0.4 Mg Capsule) 0.4 mg PO BEDTIME [facility] Last Admin: 06/16/22 22:25 Dose: 0.4 mg Documented By: JERMAINE-RENEE Labs 06/15/22 07:24 06/16/22 06:32 Assessment and Plan (1) Respiratory failure with hypoxia: Status: Acute (2) ILD (interstitial lung disease): Status: Acute Plan 87M PMH ILD, BPH presented with sob likely related to UTI exacerbation of IL day 1.Severe sepsis due to UTI (complicated by acute hypoxic respiratory failure complicated by ILD with acute decompensation) -urine culture grew VRE s/p IV vancomycin and Zosyn now on po linezolid 600 q.12 hours started 06/13 for total 14 days Leukocytosis due to steroids, follow clinical course 2. Acute hypoxic respiratory failure with history Interstitial lung diseas e(acute decompensation) -on IV steroids 40 mg daily - stable oxygen requirement,continue high-flow O2 and titrate as indicated with goal to reach nasal cannula, did not require additional oxygen overnight Echocardiogram showed wall motion abnormalities, EF 55-60% and abnormal diastolic function, BNP 87 on 06/06, no chest pain , 6,200 positive since admission cont. IV lasix 40mg /d ,started on 06/15 monitor BMP/BNP 87 at baseline follow clinical course, continue diuretics for next few days. 2.5 L neg since last 48H. 3. Urinary retention seen by urology new Cotton catheter placed since prior c atheter was blocked ,continue finasteride and Flomax. Follow closely for hematuria 4. Elevated blood pressures started on low-dose Norvasc 5 mg daily, added lasix , better blood pressure control. Lovenox Full code Requires ongoing hospitalization for IV antibiotics to treat UTI and also requi ring high-flow oxygen for acute hypoxic respiratory failure. Time Spent With Patient Time: Total time managing care of this patient today ____ minutes. Quality Stroke Does the patient have a stroke diagnosis?: No VTE Prior VTE?: No VTE Risk Level:: Medical - moderate - high VTE Device Contraindication: Treatment Not Indicated VTE Drug Contraindication: N/A - Med Ordered
--- NOTE | 2022-06-17 19:22 | PC.NURSE ---
Urologist replaced Cotton catheter with a new 18fr Cotton catheter , patient tolerated well. Cotton catheter patent and draining rust color uri
[2022-06-17] MEDS: Tamsulosin HCL 0.4 MG CAPSULE PO (19:55)
[2022-06-18] VITALS (75 sets, daily range): BP systolic 28–156; BP diastolic 14–60; PULSE 70–138; RESP 12–32; TEMP 35–37.2; O2SAT 78–97
--- NOTE | 2022-06-18 05:38 | PC.NURSE ---
P:Patient c/o SOB, laying flat in bed. HOB elevated patient sats 92% on High Flow 75% 45L patient lethargic but arousable and winded. When asked questions having some difficulty. VSS T98.2, HR: 99, R:20, BP:91/55. I: Respiratory called to bedside, increased flow to 90%. notified abg's and portable CXR ordered. will obtain. E: Patient sitting up in bed, O2sats improving between 92-97%, Patient remains c/o SOB. Will obtain results of CXR and ABGs once collected.
[2022-06-18 06:05] LABS: ABG Base Excess 7.3 mmol/L; ABG HCO3 30 mmol/L (22-26); ABG pCO2 38 mmHg (32-45); ABG pO2 66 mmHg (83-108)
--- NOTE | 2022-06-18 08:40 | PC.RT ---
called to bedside for pt. desatting. verified monitor SpO2 with bedside pulse ox of 78%. increased settings on hfnc to maximum and placed NRB on patient. SpO2 up to 91%. MD aware.
[2022-06-18 09:10] LABS: ABG Base Excess 2.8 mmol/L; ABG HCO3 26 mmol/L (22-26); ABG pCO2 34 mmHg (32-45); ABG pH 7.48 (7.35-7.45); ABG pO2 54 mmHg (83-108)
[2022-06-18 09:18] LABS: Hematocrit 29.4 % (42.0-52.0); Hemoglobin 9.3 g/dl (14.0-18.0); Mean Corpuscular HGB Conc 31.6 g/dl (31.0-36.0); Mean Corpuscular Hemoglobin 27.8 pg (27.0-33.0); Mean Platelet Volume 11.2 fL (9.4-12.4); Platelet Count 470 X10*3/uL (160-400); Red Blood Count 3.34 X10*6/uL (4.60-5.80); Red Cell Distribution Width 15.4 % (11.0-16.0)
[2022-06-18 09:32] LABS: White Blood Count 34.1 X10*3/uL (4.8-10.8)
--- NOTE | 2022-06-18 09:47 | PC.NURSE ---
upon assessing patient, WOB was increased and respirations appeared shallow. O2 sat was dipping to the 80s on high flow nasal cannula. Respiratory was consulted and the patient was placed on a nonrebreather mask over his nasal cannula. Pts O2 slowly began to rise back up to 90%. MD aware. Will continue to monitor pt.
[2022-06-18 09:51] LABS: Anion Gap 16 (12-20); Blood Urea Nitrogen 95 mg/dL (9-16); Calcium 8.4 mg/dL (8.4-10.2); Carbon Dioxide 25 mmol/L (22-29); Chloride 107 mmol/L (96-108); Creatinine Clr Calc Pharmacy 50.4; Estimated Glomerular Filt Rate 48; Glucose Random 188 mg/dL (60-115); Potassium 4.8 mmol/L (3.3-5.1); Sodium 143 mmol/L (135-145)
--- NOTE | 2022-06-18 10:26 | PC.RT ---
0826 RT tiger text from RN, pt noted to be desaturating on HFNC, settings were 80% fio2 and 45 lpm. Respiratory responded finding the patient requiring 100% fio2 at 50 lpm and a supplemental 100% NRB to maintain Spo2 88-90%. Dr. Ramírez was notified and met at the bedside. A abg was ordered and she was going to consult Dr. Parker in the ICU. 08:58 abg reported to 'betty Parker and Darrell, 7.50 / 34 / 54 / 82%/ 26 on the above settings. Dr. Ramírez reached out to pt healthcare proxy before meeting with this RT and Dr. Parker at the bedside. Dr. Parker verbally ordered cpap of 15-18 cmh2o and to transfer pt to the ICU. Pt was brought down to ICU on cpap with 100% fio2, currently 88% spo2, rr, 30.
[2022-06-18] MEDS: Norepinephrine Bitartrate/D5W 8 MG/250 ML PLAST..BAG 10.46 MG IV (10:34)
[2022-06-18] MEDS: 0.9 % Sodium Chloride Flush 3 ML SYRINGE IVFLUSH (10:36)
[2022-06-18] MEDS: Phenylephrine HCL 10 MG/ML VIAL IVPUSH (10:40)
[2022-06-18] MEDS: EPINEPHrine 1 MG/10 ML SYRINGE IVPUSH (10:45)
[2022-06-18] MEDS: Sodium Bicarbonate 8.4% 50 MEQ/50 ML VIAL IVPUSH ×3 (10:46→23:00)
--- NOTE | 2022-06-18 11:01 | PC.RT ---
10:49 am pt was intubated as he desaturated on 100% fio2, became lethargic and was unable to protect his airway. Dr. Parker utilizing the glidescope with a #4 mac passed an #8 ett through the cords successfully intubating the patient x 1 attempt. The ett is 24 cmh20 at the lip, the cuff was inflated and proper placement verified by ETCO2, bilateral lung sounds and exhaled condensate noted inside the ETT. CXR pending. Pt placed on mechanical ventilation per Dr. Parker.
[2022-06-18] MEDS: propofoL 1,000 MG/100 ML VIAL 20.09 MG IVCONT ×2 (11:13→15:12)
[2022-06-18 11:47] LABS: VBG HCO3 42 mmol/L (22-26); VBG pCO2 76 mmHg; VBG pH 7.34 (7.32-7.43); VBG pO2 40 mmHg
[2022-06-18] MEDS: Norepinephrine Bitartrate/D5W 8 MG/250 ML PLAST..BAG 209.25 MG IV ×9 (11:51→21:03)
[2022-06-18] MEDS: Lactated Ringers 1,000 ML 999 ML IV (12:13)
[2022-06-18] MEDS: EPINEPHrine 5 MG in Dextrose 5 % 250 ML 68.3 MG IVCONT (12:25)
[2022-06-18] MEDS: EPINEPHrine 5 MG in Dextrose 5 % 250 ML 341.5 MG IVCONT ×5 (13:27→17:21)
--- NOTE | 2022-06-18 13:32 | PM.CCPN ---
Subjective Subjective Date of Service: 06/18/22 Interval History: 87-year-old gentleman with underlying BPH, ILD/IPF admitted on 06/06/2022 with shortness of breath and hypoxia. Hospital course significant for progressive hypoxemia secondary to exacerbation underlying interstitial lung disease with no response to systemic glucocorticoids. Patient had empiric diuresis with initial improvement in his FiO2 requirements, however later his oxygen requirements again progressively increased and he was not able to sustain normal oxygenation on maximum support with high-flow and non-rebreather on 06/18/2022. At that time patient was transferred to intensive care unit and tried on noninvasive positive pressure ventilation, unfortunately to no avail requiring emergent intubation for refractory hypoxemia and initiation of ventilatory support. Unfortunately, patient still with borderline oxygenation despite maximum ventilatory support. Discussion about overall poor clinical prognosis held with patient's healthcare proxy / son and decision has been reached to switch code status to do not resuscitate and continue with care as is. Critical Care Time (minutes): 90 Physical Exam Vital Signs: Vital Signs: Last Vital Signs Temp 98.9 F 06/18/22 12:00 Pulse 120 H 06/18/22 13:03 Resp 18 06/18/22 13:00 BP 114/46 L 06/18/22 13:03 Pulse Ox 87 L 06/18/22 13:00 O2 Del Method Mechanical Ventil ation 06/18/22 13:00 O2 Flow Rate 45 06/18/22 08:00 FiO2 100 06/18/22 13:00 Oxygen Flow Rate 8 06/06/22 12:12 BMI result Body Mass Index 29.9 Const: General: no acute distress and other ( sedated on the vent) Eyes: Sclerae: sclerae normal EOM: EOMs intact bilaterally Neck: Neck: Yes no lymphadenopathy, Yes trachea midline and Yes supple Resp: Auscultation: crackles ( diffuse bilateral inspiratory) Cardio: Rate: tachycardic Rhythm: abnormal rhythm irregularly irregular Heart sounds: no gallops, no murmurs and no rubs GI: Palpation (GI): Soft to palpation and Other GI palpation findings present ( Nontender) Auscultation: normal bowel sounds Extrem: General: Yes no pedal edema, No clubbing and No cyanosis Objective Data Labs 06/18/22 09:11 06/18/22 09:11 Labs: Laboratory Results - last 24 hr 06/18/22 06/18/22 06/18/22 05:54 09:00 09:11 WBC 34.1 H* RBC 3.34 L D Hgb 9.3 L D Hct 29.4 L D MCV 88.0 MCH 27.8 MCHC 31.6 RDW 15.4 Plt Count 470 H MPV 11.2 Absolute Nucleated RBC 0.000 Nucleated RBC % (auto) 0.0 O2 Saturation 92.0 82.0 ABG pH at Pt Temp 7.50 H 7.48 H ABG pCO2 at Pt Temp 38 34 ABG pO2 at Pt Temp 66 L 54 L ABG HCO3 30 H 26 ABG Base Excess (Actual) 7.3 2.8 VBG pH VBG pCO2 VBG pO2 VBG HCO3 VBG O2 Saturation VBG Base Excess Sodium Potassium Chloride Carbon Dioxide Anion Gap BUN Creatinine Estim Creat Clear Calc Estimated GFR Random Glucose Calcium 06/18/22 06/18/22 09:11 11:38 WBC RBC Hgb Hct MCV MCH MCHC RDW Plt Count MPV Absolute Nucleated RBC Nucleated RBC % (auto) O2 Saturation ABG pH at Pt Temp ABG pCO2 at Pt Temp ABG pO2 at Pt Temp ABG HCO3 ABG Base Excess (Actual) VBG pH 7.34 VBG pCO2 76 VBG pO2 40 VBG HCO3 42 H VBG O2 Saturation 52.0 VBG Base Excess 14.0 Sodium 143 Potassium 4.8 Chloride 107 Carbon Dioxide 25 Anion Gap 16 BUN 95 H Creatinine 1.41 H Estim Creat Clear Calc 50.4 Estimated GFR 48 Random Glucose 188 H Calcium 8.4 Microbiology Microbiology Results: Microbiology 06/06/22 14:48 Blood - Venous Blood Culture - Final No growth after 5 days. 06/06/22 13:55 Blood - Venous Blood Culture - Final No growth after 5 days. 06/06/22 17:59 Urine Catheterized - Cotton Catheter Urine Culture - Final Enterococcus faecalis Progress Note: A&P Assessment and plan (1) ILD (interstitial lung disease): Status: Acute (2) Respiratory failure with hypoxia: Status: Acute (3) Afib: Status: Acute (4) Acute renal failure: Status: Acute Plan Assessment: 87-year-old gentleman admitted with progressive hypoxemia secondary to exacerbation of underlying pulmonary fibrosis now maximum requiring ventilatory support Plan: Neuro: No acute issues. Cardiac: No evidence of sepsis, hypotension and end organ dysfunction is secondary to hypoxemia refractory to ventilatory support. Continue on vasopressor support. Pulmonary: Acute progressive hypoxemia refractory to maximum ventilatory support. Continue ventilatory support. Renal: acute renal failure secondary to intravascular volume depletion. Non oliguric. Continue to monitor renal indices and urine output. Endo: No acute issues. GI: No acute issues. ID: No acute issues Heme/Onc: No acute issues. Psych: No acute issues. Miscellaneous: No acute issues. Prophylaxis: Lovenox, famotidine Diet: nothing by mouth Critical care time spent: 90 minutes excluding separately billable procedures Quality Stroke Does the patient have a stroke diagnosis?: No VTE Prior VTE?: No VTE Risk Level:: Medical - moderate - high VTE Device Contraindication: Treatment Not Indicated VTE Drug Contraindication: N/A - Med Ordered
--- NOTE | 2022-06-18 13:44 | W.PM.CCHP ---
Procedures Date of Service Date of Service: 06/18/22 Central Line Placement Right IJ: Central Line Comments: Right internal jugular triple-lumen central venous catheter emergently placed for vasopressor support under ultrasound guidance and usual sterile conditions with no immediate complications. Line position verified on chest x-ray.
--- NOTE | 2022-06-18 13:46 | W.PM.CCHP ---
Procedures Date of Service Date of Service: 06/18/22 Intubation Intubation Comments: Patient emergently intubated for hypoxemia refractory to noninvasive positive pressure ventilatory support with 8.0 cuffed ET tube under glidescope guidance with no immediate complications. ET tube position verified on chest x-ray.
[2022-06-18 13:50] LABS: Venous Blood Gas Refer to POC result
[2022-06-18] MEDS: Linezolid/D5W 600 MG/300 ML PIGGYBACK 300 MG IV (14:05)
[2022-06-18] MEDS: Chlorhexidine Gluc Oral Rinse 15 ML MOUTHWASH BUCCAL ×2 (14:23→20:25)
--- NOTE | 2022-06-18 14:47 | P.PNIM_ITS ---
Subjective Subjective Date of Service: 06/18/22 Interval History: Events from early this morning noted patient noted to be hypoxic and short of breath , chest x-ray obtained early this morning showed similar appearance of bilateral airspace opacities with bronchial wall thickening, patient complaining of shortness of breath, denies pain appears lethargic , afebrile overnight blood pressure is stable. Review of Systems Review of Systems: Yes Unobtainable due to mental condition Physical Exam Vital Signs: Vital Signs: Last Vital Signs Temp 98.9 F 06/18/22 12:00 Pulse 121 H 06/18/22 14:23 Resp 19 06/18/22 14:00 BP 84/37 L 06/18/22 14:23 Pulse Ox 84 L 06/18/22 14:00 O2 Del Method Mechanical Ventil ation 06/18/22 14:00 O2 Flow Rate 45 06/18/22 08:00 FiO2 100 06/18/22 14:00 Oxygen Flow Rate 8 06/06/22 12:12 BMI result Body Mass Index 29.9 Const: Other: General appears lethargic, open eyes to verbal commands, appears short of breath? Neck??supple no JVD. CVS? regular rate rhythm, Respiratory lungs unchanged exam coarse breath sound/crackles at bases, tachypneic Gastrointestinal abdomen soft, non tender, bowel sounds audible, no guarding , no rigidity. Extremities no edema. Neuro easily arousable no confusion answer questions appropriately, moving all 4 extremity, speech clear. Skin no?rash Cotton?catheter clear urine. Objective Data Active Medications Acetaminophen (Acetaminophen 325 Mg Tablet) 650 mg PO Q6H PRN PRN Reason: fever/pain Chlorhexidine Gluconate (Chlorhexidine Gluc Oral Rinse 15 Ml Mouthwash) 15 ml BUCCAL TID [facility] Last Admin: 06/18/22 14:23 Dose: 15 ml Documented By: KENDY Enoxaparin Sodium (Enoxaparin Sodium 40 Mg/0.4 Ml Syringe) 40 mg SUBCUT Q24H [facility] Last Admin: 06/18/22 11:49 Dose: Not Given Documented By: KENDY Non-Admin Reason: hold per Famotidine (Famotidine/Pf 20 Mg/2 Ml Vial) 20 mg IVPUSH DAILY [facility] Norepinephrine Bitartrate (Levophed) 8 mg in 250 mls @ 0 mls/hr IV .Q0M [facility]; Protocol Last Admin: 06/18/22 14:09 Dose: 1 mcg/kg/min, 209.25 mls/hr Documented By: BLACK Propofol (Diprivan) 1,000 mg in 100 mls @ 0 mls/hr IVCONT .Q0M [facility]; Protocol Last Titration: 06/18/22 13:25 Dose: 30 mcg/kg/min, 20.09 mls/hr Documented By: BLACK Epinephrine 5 mg/ Dextrose 255 mls @ 0 mls/hr IVCONT .Q0M [facility]; Protocol Last Admin: 06/18/22 14:23 Dose: 1 mcg/kg/min, 341.5 mls/hr Documented By: KENDY Linezolid (Zyvox/D5w) 600 mg in 300 mls @ 300 mls/hr IV Q12H [facility] Last Admin: 06/18/22 14:05 Dose: 300 mls/hr Documented By: BLACK Methylprednisolone Sodium Succinate (Methylprednisolone Sod Succ 125 Mg/2 Ml Vial) 60 mg IVPUSH DAILY [facility] Last Admin: 06/18/22 11:49 Dose: Not Given Documented By: KENDY Non-Admin Reason: hold per md Pharmacy Consult (Consult Rx Perform Med Rec) 1 each MISCELLANE ONCE PRN PRN Reason: Consult order Sodium Chloride (0.9 % Sodium Chloride Flush 3 Ml Syringe) 3 ml IVFLUSH QSHIFT [facility] Last Admin: 06/18/22 14:46 Dose: Not Given Documented By: KENDY Non-Admin Reason: IV Running Labs 06/18/22 09:11 06/18/22 09:11 Labs: Laboratory Results - last 24 hr 06/18/22 06/18/22 06/18/22 05:54 09:00 09:11 MCV 88.0 MCH 27.8 MCHC 31.6 RDW 15.4 Plt Count 470 H MPV 11.2 Absolute Nucleated RBC 0.000 Nucleated RBC % (auto) 0.0 O2 Saturation 92.0 82.0 ABG pH at Pt Temp 7.50 H 7.48 H ABG pCO2 at Pt Temp 38 34 ABG pO2 at Pt Temp 66 L 54 L ABG HCO3 30 H 26 ABG Base Excess (Actual) 7.3 2.8 VBG pH VBG pCO2 VBG pO2 VBG HCO3 VBG O2 Saturation VBG Base Excess Anion Gap Estim Creat Clear Calc Estimated GFR Random Glucose Calcium 06/18/22 06/18/22 09:11 11:38 MCV MCH MCHC RDW Plt Count MPV Absolute Nucleated RBC Nucleated RBC % (auto) O2 Saturation ABG pH at Pt Temp ABG pCO2 at Pt Temp ABG pO2 at Pt Temp ABG HCO3 ABG Base Excess (Actual) VBG pH 7.34 VBG pCO2 76 VBG pO2 40 VBG HCO3 42 H VBG O2 Saturation 52.0 VBG Base Excess 14.0 Anion Gap 16 Estim Creat Clear Calc 50.4 Estimated GFR 48 Random Glucose 188 H Calcium 8.4 Assessment and Plan (1) Respiratory failure with hypoxia: Status: Acute (2) ILD (interstitial lung disease): Status: Acute Plan 87M PMH ILD, BPH presented with sob likely related to UTI exacerbation of IL day 1.Severe sepsis due to UTI (complicated by acute hypoxic respiratory failure complicated by ILD with acute decompensation) -urine culture grew VRE, initially treated with IV vancomycin and Zosyn now on po linezolid 600 q.12 hours started 06/13 for total 14 days as per ID recommendation, Leukocytosis due to steroids, follow clinical course 2. Worsening Acute hypoxic respiratory failure with Interstitial lung disease this morning noted to have worsening hypoxia despite high-flow oxygen and 100% non-rebreather stat ABGs obtained that showed severe hypoxia, cxr unchanged. on IV steroids 40 mg daily, Echocardiogram showed wall motion abnormalities, EF 55-60% and abnormal diastolic function, BNP 87 on 06/06, no chest pain , started on IV Lasix 40 mg 3 days ago > 3 L negative in last 3 days Initially noted to have some improvement in oxygenation, but today noted to have worsening creatinine ,and hypoxia despite maximum O2 support, consulted mail clerks supervisor patient will be transferred to intensive care unit for possible mechanical ventilation called patient's son and informed him about patient's worsening clinical condition and need for higher level of care. 3. Urinary retention new Cotton catheter placed 06/17 since prior catheter was blocked ,continue finasteride and Flomax. no hematuria x 24 hrs 4. Elevated blood pressures started on low-dose Norvasc 5 mg daily, better blood pressure control. Lovenox Full code Due to worsening acute hypoxic respiratory failure patient is being transferred to intensive care unit for for possible intubation Time Spent With Patient Time: Total time managing care of this patient today ____ minutes. Quality Stroke Does the patient have a stroke diagnosis?: No VTE Prior VTE?: No VTE Risk Level:: Medical - moderate - high VTE Device Contraindication: Treatment Not Indicated VTE Drug Contraindication: N/A - Med Ordered
--- NOTE | 2022-06-18 16:34 | PC.NURSE ---
Assumed care of patient upon transfer from Med-tele unit to ICU at 10:25. Patient on tele was in sinus tachycardia. 10:30 Levophed gtt started per protocol and MD orders @0.02 MD notified son of patient health status via phone. 10:40 Neosynephrine 200 mg IVP given by MD for low MAP. 10:42 Patient became bradycardic HR 50, MD at bedside. 10:43 Pacer pads placed on patient. RT using ambu bag to ventilate patient manually. femoral pulse faint with doppler, carotid pulse present. Patient placed on zoll monitor, rhythm SVT rate 130 10:45 Epinephrine IVP given once, levo gtt increased for low MAP 10:46 Patient in SVT HR 137 on tele monitor 10:47 patient intubated by MD. ET tube placed, 8.0 26 @ lip. Comfirmed by capnography. 10:54 patient son Ward contacted by MD to notify of intubation and patient status. Code status changed to DNR pers son. 10:55 Levophed gtt titrated to max rate @1 for low MAP. 11:05 MD placed triple lumen central line catheter. CXR captured to confirm placement to TLC and ET tube. 11:13 propofol gtt started for sedation due to increased RASS score +1 12:25 epinephrine gtt started for low BP 62/27, MAP 38. Son came to bedside to visit patient, family conference with MD. 15:00 minmimal urine output. Joaquin irrigated by hand with normal saline, no return of volume. Bladder scan 73 mL. New joaquin placed 18F. Patient repositioned Q2H, mouth care provided Q2H, prevlon system utilized, high fall precautions in place.
[2022-06-18] MEDS: EPINEPHrine 5 MG in Dextrose 5 % 250 ML 273.2 MG IVCONT (18:19)
[2022-06-18] MEDS: propofoL 1,000 MG/100 ML VIAL 26.78 MG IVCONT ×2 (18:33→22:14)
[2022-06-18] MEDS: EPINEPHrine 5 MG in Dextrose 5 % 250 ML 266.37 MG IVCONT (19:25)
[2022-06-18] MEDS: EPINEPHrine 5 MG in Dextrose 5 % 250 ML 259.54 MG IVCONT (20:23)
[2022-06-18 20:56] LABS: ABG Refer to POC result
[2022-06-18 20:56] LABS: ABG Refer to POC result
[2022-06-18] MEDS: EPINEPHrine 5 MG in Dextrose 5 % 250 ML 245.88 MG IVCONT (21:24)
[2022-06-18] MEDS: EPINEPHrine 5 MG in Dextrose 5 % 250 ML 225.39 MG IVCONT (22:44)
[2022-06-18 22:55] LABS: VBG Base Excess -11.2 mmol/L; VBG HCO3 16 mmol/L (22-26); VBG pCO2 43 mmHg; VBG pH 7.17 (7.32-7.43); VBG pO2 39 mmHg
[2022-06-18 23:20] LABS: Venous Blood Gas Refer to POC result
[2022-06-18] MEDS: EPINEPHrine 5 MG in Dextrose 5 % 250 ML 218.56 MG IVCONT (23:49)
[2022-06-19] VITALS (75 sets, daily range): BP systolic 92–167; BP diastolic 19–78; PULSE 88–102; RESP 23–34; TEMP 34.3–39.5; O2SAT 92–100
[2022-06-19] MEDS: 0.9 % Sodium Chloride Flush 3 ML SYRINGE IVFLUSH ×3 (00:18→16:39)
[2022-06-19] MEDS: Sodium Bicarbonate 8.4% 50 MEQ/50 ML SYRINGE IVPUSH ×2 (00:39→02:48)
[2022-06-19] MEDS: propofoL 1,000 MG/100 ML VIAL 26.78 MG IVCONT ×7 (00:48→19:58)
[2022-06-19] MEDS: EPINEPHrine 5 MG in Dextrose 5 % 250 ML 273.2 MG IVCONT ×10 (01:05→09:51)
[2022-06-19] MEDS: Linezolid/D5W 600 MG/300 ML PIGGYBACK 300 MG IV ×2 (01:10→13:17)
--- NOTE | 2022-06-19 03:19 | PC.NURSE ---
ASSUMED CARE OF PT AT 1900. PT ON PRESSURE CONTROL VENT SETTINGS. NO RESP DIFFICULTIES. FIO2 100% AND O2 SATS MID TO UPPER 90'S. VBG'S DRAWN AND PH 7.15. BICARB ORDERED AND GIVEN X3 THIS SHIFT. RESP RATE INCREASING NIGHT GOES ON, NOW 32-34. VENTILATORY RATE DECREASED FROM 24 TO 20. PT CONVERTED TO NSR EARLY IN SHIFT, AROUND 1929. HEART RATE 90'S-104, OCC PVC NOTED. SEE POSTED STRIP. BP STABLE ON LEVOPHED MAX RATE AND EPINEPHRINE 0.8 MCG/KG/MIN. LEVOPHED CONCENTRATION CHANGED TO 4X CONCENTRATION. ONLY 10 ML OF URINE OUTPUT THIS SHIFT. AFEBRILE. SON ITALO PRESENT AT THE BEGINNING OF THE SHIFT AND SPOKE TO MELODIE RICHTER. HE UNDERSTANDS THE PROGNOSIS IS POOR. PT IS A DNR PER SON.
[2022-06-19] MEDS: Acetaminophen 1,000 MG/100 ML PIGGYBACK 400 MG IV ×2 (04:53→16:32)
[2022-06-19 05:31] LABS: VBG HCO3 23 mmol/L (22-26); VBG pCO2 46 mmHg; VBG pO2 40 mmHg; Venous Blood Gas Refer to POC result
--- NOTE | 2022-06-19 06:10 | PC.NURSE ---
PT DEVELOPED TEMP 102 PO. TYLENOL 1000 MG IV ORDERED AND GIVEN. PT REMAINS UNRESPONSIVE ON VENTILATOR, NO COUGH OR GAG REFLEX. PEARRLA. EXTREMITIES FLACCID. MONITOR CONTINUES NSR, RATE 90'S, OCC PVC NOTED. 55 ML URINE OUTPUT PAST 12 HRS. BP STABLE ON EPI AND LEVO DRIPS. [facility] CALLED AND PT REFERRAL MADE. CASE DECLINED BY CHARLIE. REFERRAL # [id number].
[2022-06-19 06:27] LABS: Hematocrit 25.6 % (42.0-52.0); Mean Corpuscular HGB Conc 31.3 g/dl (31.0-36.0); Mean Corpuscular Hemoglobin 28.2 pg (27.0-33.0); Mean Corpuscular Volume 90.1 fL (80.0-98.0); Mean Platelet Volume 11.6 fL (9.4-12.4); Platelet Count 425 X10*3/uL (160-400); Red Blood Count 2.84 X10*6/uL (4.60-5.80); Red Cell Distribution Width 15.2 % (11.0-16.0)
[2022-06-19 06:30] LABS: Albumin Level 2.1 g/dL (3.5-5.0); Anion Gap 27 (12-20); Blood Urea Nitrogen 92 mg/dL (9-16); Calcium 7.2 mg/dL (8.4-10.2); Carbon Dioxide 21 mmol/L (22-29); Chloride 87 mmol/L (96-108); Creatinine Clr Calc Pharmacy 24.5; Estimated Glomerular Filt Rate 21; Glucose Random 321 mg/dL (60-115); Magnesium 1.7 mg/dL (1.6-2.6); Phosphorus 4.7 mg/dL (2.7-4.5); Potassium 5.5 mmol/L (3.3-5.1); Sodium 129 mmol/L (135-145)
[2022-06-19 06:49] LABS: WBC ABN SCTR FOR CBC 1
[2022-06-19 06:51] LABS: White Blood Count 75.1 X10*3/uL (4.8-10.8)
[2022-06-19] MEDS: methylPREDNISolone Sod Succ 125 MG/2 ML VIAL 60 MG IVPUSH (07:56)
[2022-06-19] MEDS: Enoxaparin Sodium 40 MG/0.4 ML SYRINGE SUBCUT (07:56)
[2022-06-19] MEDS: Chlorhexidine Gluc Oral Rinse 15 ML MOUTHWASH BUCCAL ×3 (07:56→20:28)
[2022-06-19] MEDS: Famotidine/PF 20 MG/2 ML VIAL IVPUSH (07:56)
[2022-06-19 09:38] LABS: Band Neutrophils Percent 34 % (3-5); Lymphocytes Percent Manual 4 % (20-40); Metamyelocytes Absolute 0.8 X10*3/uL; Metamyelocytes Percent 1 %; Monocytes Absolute Manual 3.8 X10*3/uL (0.1-1.2); Monocytes Percent Manual 5 % (2-11); Myelocytes Absolute 0.8 X10*/uL; Myelocytes Percent 1 %; Neutrophils Absolute Manual 66.1 X10*3/uL (2.0-8.3); Neutrophils Percent Manual 54 % (45-73); Nucleated Red Blood Cells 1 /100WBC (0-0); Promyelocytes Absolute 0.8 X10*3/uL; Promyelocytes Percent 1 %
[2022-06-19 09:39] LABS: RBC Morphology NOTED
[2022-06-19 09:40] LABS: Burr Cells 2+ (3-5) /OIF
[2022-06-19 09:42] LABS: Anion Gap 19 (12-20); Blood Urea Nitrogen 91 mg/dL (9-16); Carbon Dioxide 25 mmol/L (22-29); Chloride 86 mmol/L (96-108); Creatinine Clr Calc Pharmacy 23.2; Estimated Glomerular Filt Rate 19; Glucose Random 255 mg/dL (60-115); Potassium 5.3 mmol/L (3.3-5.1); Sodium 125 mmol/L (135-145)
[2022-06-19 09:48] LABS: Platelet Estimate NORMAL (NORMAL); Platelet Morphology Comment NORMAL
[2022-06-19] MEDS: EPINEPHrine 5 MG in Dextrose 5 % 250 ML 204.9 MG IVCONT (11:04)
--- NOTE | 2022-06-19 12:16 | PM.CCPN ---
Subjective Subjective Date of Service: 06/19/22 Interval History: 87-year-old gentleman with underlying BPH, ILD/IPF admitted on 06/06/2022 with shortness of breath and hypoxia. Hospital course significant for progressive hypoxemia secondary to exacerbation underlying interstitial lung disease with no response to systemic glucocorticoids. Patient had empiric diuresis with initial improvement in his FiO2 requirements, however later his oxygen requirements again progressively increased and he was not able to sustain normal oxygenation on maximum support with high-flow and non-rebreather on 06/18/2022. At that time patient was transferred to intensive care unit and tried on noninvasive positive pressure ventilation, unfortunately to no avail requiring emergent intubation for refractory hypoxemia and initiation of ventilatory support. Unfortunately, patient still with borderline oxygenation despite maximum ventilatory support. Discussion about overall poor clinical prognosis held with patient's healthcare proxy / son and decision has been reached to switch code status to do not resuscitate and continue with care as is. Overnight with some stabilization in terms of vasopressor support and oxigenation, but continues to require near maximal support with development of further end-organ dysfunction, including acute renal injury. Critical Care Time (minutes): 60 Physical Exam Vital Signs: Vital Signs: Last Vital Signs Temp 100.4 F 06/19/22 07:58 Pulse 94 06/19/22 12:00 Resp 27 H 06/19/22 12:00 BP 155/55 H 06/19/22 12:00 Pulse Ox 97 06/19/22 12:00 O2 Del Method Mechanical Ventil ation 06/19/22 12:00 O2 Flow Rate 45 06/18/22 08:00 FiO2 100 06/19/22 12:00 Oxygen Flow Rate 8 06/06/22 12:12 BMI result Body Mass Index 29.9 Const: General: no acute distress and other (Sedated on the vent) Nutritional Appearance: Edematous Eyes: Sclerae: sclerae normal Neck: Neck: Yes no lymphadenopathy, Yes trachea midline and Yes supple Resp: Auscultation: crackles (Diffuse bilateral) Cardio: Rate: regular rate Rhythm: regular rhythm Heart sounds: no gallops, no murmurs and no rubs GI: Palpation (GI): Soft to palpation and Other GI palpation findings present ( Nontender) Auscultation: normal bowel sounds Extrem: General: No clubbing, No cyanosis and Yes edema (1+ bilateral) Objective Data Labs 06/19/22 05:25 04/30/23 09:13 Labs: Laboratory Results - last 24 hr 06/18/22 06/19/22 06/19/22 22:45 05:20 05:25 WBC 75.1 H* RBC 2.84 L Hgb 8.0 L Hct 25.6 L MCV 90.1 MCH 28.2 MCHC 31.3 RDW 15.2 Plt Count 425 H MPV 11.6 Immature Gran % (Auto) Cancelled Neut % (Auto) Cancelled Lymph % (Auto) Cancelled Kimble % (Auto) Cancelled Eos % (Auto) Cancelled Baso % (Auto) Cancelled Lymph # (Auto) Cancelled Kimble # (Auto) Cancelled Eos # (Auto) Cancelled Baso # (Auto) Cancelled Abs Immat Gran (auto) Cancelled Absolute Neuts (auto) Cancelled Absolute Nucleated RBC 0.020 H Nucleated RBC % (auto) 0.0 Neutrophils % (Manual) 54 Band Neutrophils % 34 H Lymphocytes % (Manual) 4 L Monocytes % (Manual) 5 Metamyelocytes % 1 Myelocytes % 1 Promyelocytes % 1 Abs Neuts (Manual) 66.1 H Lymphocytes # (Manual) 3.0 Monocytes # (Manual) 3.8 H Metamyelocytes # 0.8 Myelocytes # 0.8 Promyelocytes # 0.8 Nucleated RBCs 1 H Platelet Estimate NORMAL Plt Morphology Comment NORMAL RBC Morphology NOTED [place] Cells 2+ (3-5) VBG pH 7.17 L* 7.30 L VBG pCO2 43 46 VBG pO2 39 40 VBG HCO3 16 L 23 VBG O2 Saturation 51.0 62.0 VBG Base Excess -11.2 -3.0 Sodium Potassium Chloride Carbon Dioxide Anion Gap BUN Creatinine Estim Creat Clear Calc Estimated GFR Random Glucose Calcium Phosphorus Magnesium Albumin 06/19/22 06/19/22 05:26 09:13 WBC RBC Hgb Hct MCV MCH MCHC RDW Plt Count MPV Immature Gran % (Auto) Neut % (Auto) Lymph % (Auto) Kimble % (Auto) Eos % (Auto) Baso % (Auto) Lymph # (Auto) Kimble # (Auto) Eos # (Auto) Baso # (Auto) Abs Immat Gran (auto) Absolute Neuts (auto) Absolute Nucleated RBC Nucleated RBC % (auto) Neutrophils % (Manual) Band Neutrophils % Lymphocytes % (Manual) Monocytes % (Manual) Metamyelocytes % Myelocytes % Promyelocytes % Abs Neuts (Manual) Lymphocytes # (Manual) Monocytes # (Manual) Metamyelocytes # Myelocytes # Promyelocytes # Nucleated RBCs Platelet Estimate Plt Morphology Comment RBC Morphology [place] Cells VBG pH VBG pCO2 VBG pO2 VBG HCO3 VBG O2 Saturation VBG Base Excess Sodium 129 L 125 L Potassium 5.5 H 5.3 H Chloride 87 L 86 L Carbon Dioxide 21 L 25 Anion Gap 27 H 19 BUN 92 H 91 H Creatinine 2.90 H 3.06 H Estim Creat Clear Calc 24.5 23.2 Estimated GFR 21 19 Random Glucose 321 H 255 H Calcium 7.2 L D 7.0 L Phosphorus 4.7 H Magnesium 1.7 Albumin 2.1 L Microbiology Microbiology Results: Microbiology 06/06/22 14:48 Blood - Venous Blood Culture - Final No growth after 5 days. 06/06/22 13:55 Blood - Venous Blood Culture - Final No growth after 5 days. 06/06/22 17:59 Urine Catheterized - Cotton Catheter Urine Culture - Final Enterococcus faecalis Progress Note: A&P Assessment and plan (1) Acute renal failure: Status: Acute (2) Afib: Status: Acute (3) Respiratory failure with hypoxia: Status: Acute (4) ILD (interstitial lung disease): Status: Acute Plan Assessment: 87-year-old gentleman admitted with progressive hypoxemia secondary to exacerbation of underlying pulmonary fibrosis now requiring maximum ventilatory support Plan: Neuro: No acute issues. Cardiac: No evidence of sepsis, hypotension, leukocytosis, and end organ dysfunction is secondary to hypoxemia refractory to ventilatory support. Continue on vasopressor support. Pulmonary: Acute progressive hypoxemia refractory to maximum ventilatory support. Continue ventilatory support. Renal: acute renal failure secondary to intravascular volume depletion. Non oliguric. Continue to monitor renal indices and urine output. Endo: No acute issues. GI: No acute issues. ID: No acute issues Heme/Onc: No acute issues. Psych: No acute issues. Miscellaneous: Family is considering goals of care. Prophylaxis: Lovenox, famotidine Diet: nothing by mouth Critical care time spent: 60 minutes Quality Stroke Does the patient have a stroke diagnosis?: No VTE Prior VTE?: No VTE Risk Level:: Medical - moderate - high VTE Device Contraindication: Treatment Not Indicated VTE Drug Contraindication: N/A - Med Ordered
[2022-06-19] MEDS: EPINEPHrine 5 MG in Dextrose 5 % 250 ML 170.75 MG IVCONT ×3 (12:19→15:28)
[2022-06-19] MEDS: EPINEPHrine 5 MG in Dextrose 5 % 250 ML 68.3 MG IVCONT ×2 (18:11→20:49)
[2022-06-19] MEDS: fentaNYL citrate/PF 100 MCG/2 ML VIAL 50 MCG IVPUSH (21:54)
[2022-06-19] MEDS: propofoL 1,000 MG/100 ML VIAL 20.09 MG IVCONT (23:09)
[2022-06-20] VITALS (28 sets, daily range): BP systolic 0–153; BP diastolic 0–70; PULSE 0–115; RESP 24–31; TEMP 34.5–38.8; O2SAT 86–96; BMI 29.9
[2022-06-20] MEDS: EPINEPHrine 5 MG in Dextrose 5 % 250 ML 68.3 MG IVCONT ×2 (00:09→03:24)
[2022-06-20] MEDS: 0.9 % Sodium Chloride Flush 3 ML SYRINGE IVFLUSH ×2 (00:22→08:19)
[2022-06-20] MEDS: Linezolid/D5W 600 MG/300 ML PIGGYBACK 300 MG IV (03:16)
[2022-06-20] MEDS: propofoL 1,000 MG/100 ML VIAL 20.09 MG IVCONT ×3 (03:21→12:23)
[2022-06-20 05:22] LABS: VBG Base Excess -5.6 mmol/L; VBG HCO3 20 mmol/L (22-26); VBG pCO2 38 mmHg; VBG pH 7.31 (7.32-7.43); VBG pO2 48 mmHg
[2022-06-20 05:23] LABS: Venous Blood Gas Refer to POC result
[2022-06-20 05:30] LABS: Basophils Absolute Auto 0.1 X10*3/uL (0.0-0.2); Basophils Percent Auto 0.2 % (0-2); Imm Gran Abs Auto 1.44 X10*3/uL (0.00-0.03); Imm Gran Pct Auto 2.8 % (0.0-0.4); Lymphocytes Absolute Auto 0.8 X10*3/uL (1.2-4.9); Lymphocytes Percent Auto 1.6 % (20-40); MANUAL DIFF FLAG SCAN; Mean Corpuscular Hemoglobin 29.1 pg (27.0-33.0); Mean Corpuscular Volume 85.7 fL (80.0-98.0); Mean Platelet Volume 10.7 fL (9.4-12.4); Monocytes Absolute Auto 2.1 X10*3/uL (0.1-1.2); Monocytes Percent Auto 4.1 % (2-11); NRBC Pct Auto 0.1 /100WBC (0.0-0.2); Neutrophils Absolute Auto 46.2 x10*3/uL (2.0-8.3); Neutrophils Percent Auto 91.3 % (45-73); Platelet Count 260 X10*3/uL (160-400); Red Cell Distribution Width 15.1 % (11.0-16.0); SCAN SMEAR FLAG 1
[2022-06-20 05:38] LABS: Hematocrit 19.7 % (42.0-52.0); Hemoglobin 6.7 g/dl (14.0-18.0); White Blood Count 50.6 X10*3/uL (4.8-10.8)
[2022-06-20 05:48] LABS: SLIDE REVIEW VERIFIED
[2022-06-20 05:50] LABS: Albumin Level 2.1 g/dL (3.5-5.0); Anion Gap 22 (12-20); Blood Urea Nitrogen 96 mg/dL (9-16); Calcium 6.6 mg/dL (8.4-10.2); Carbon Dioxide 19 mmol/L (22-29); Chloride 83 mmol/L (96-108); Estimated Glomerular Filt Rate 14; Glucose Random 257 mg/dL (60-115); Magnesium 1.7 mg/dL (1.6-2.6); Phosphorus 6.6 mg/dL (2.7-4.5); Sodium 118 mmol/L (135-145)
[2022-06-20] MEDS: Famotidine/PF 20 MG/2 ML VIAL IVPUSH (08:19)
[2022-06-20] MEDS: Chlorhexidine Gluc Oral Rinse 15 ML MOUTHWASH BUCCAL (08:19)
[2022-06-20] MEDS: methylPREDNISolone Sod Succ 125 MG/2 ML VIAL 60 MG IVPUSH (08:20)
[2022-06-20] MEDS: Enoxaparin Sodium 40 MG/0.4 ML SYRINGE SUBCUT (08:20)
--- NOTE | 2022-06-20 09:40 | MHC.CM.PN ---
EMR reviewed, and per ICU rounds, pts prognosis poor, discussions have taken place with pts son/HCP and he is leaning towards comfort care. Pts sister [place] from [place] today. CM will continue to follow.
--- NOTE | 2022-06-20 10:36 | MHC.CLN ---
RE: CONSULT PT WITH INCREASED NUTRITION RISK R/T PRESSURE INJURIES DISCUSSED AT ROUNDS WITH MD PT TO REMAIN NPO FOR TODAY POOR PROGNOSIS PER MD IF DIET TO ADVANCE; RECOMMEND INCREASE IN PO PROTEIN INTAKE FOLLOWING WITH TEAM CONSULT RD IF TF NEEDED SEE ALSO FULL CLINICAL NUTRITION ASSESSMENT
--- NOTE | 2022-06-20 11:26 | P.PNCC_ITS ---
Subjective Subjective Date of Service: 06/20/22 Interval History: 87-year-old gentleman with underlying BPH, ILD/IPF admitted on 06/06/2022 with shortness of breath and hypoxia. Hospital course significant for progressive hypoxemia secondary to exacerbation underlying interstitial lung disease with no response to systemic glucocorticoids. Patient had empiric diuresis with initial improvement in his FiO2 requirements, however later his oxygen requirements again progressively increased and he was not able to sustain normal oxygenation on maximum support with high-flow and non-rebreather on 06/18/2022. At that time patient was transferred to intensive care unit and tried on noninvasive positive pressure ventilation, unfortunately to no avail requiring emergent intubation for refractory hypoxemia and initiation of ventilatory support. Unfortunately, patient still with borderline oxygenation despite maximum ventilatory support. Discussion about overall poor clinical prognosis held with patient's healthcare proxy / son and decision has been reached to switch code status to do not resuscitate and continue with care as is. No events overnight. Family is awaiting arrival of his daughter to change code status. Critical Care Time (minutes): 45 Physical Exam Vital Signs: Vital Signs: Last Vital Signs Temp 99.7 F 06/20/22 11:00 Pulse 95 06/20/22 11:00 Resp 31 H 06/20/22 11:00 BP 124/41 L 06/20/22 11:00 Pulse Ox 89 L 06/20/22 11:00 O2 Del Method Mechanical Ventil ation 06/20/22 11:00 O2 Flow Rate 45 06/18/22 08:00 FiO2 65 06/20/22 11:00 Oxygen Flow Rate 8 06/06/22 12:12 BMI result Body Mass Index 29.9 Const: General: no acute distress, ill appearing and other ( Sedated on the vent) Nutritional Appearance: Edematous Eyes: Sclerae: sclerae normal Neck: Neck: Yes no lymphadenopathy, Yes trachea midline and Yes supple Resp: Auscultation: crackles ( diffuse bilateral) Cardio: Rate: regular rate Rhythm: regular rhythm Heart sounds: no gallops, no murmurs and no rubs GI: Palpation (GI): Soft to palpation and Other GI palpation findings present ( Nontender) Auscultation: normal bowel sounds Extrem: General: No clubbing, No cyanosis and Yes edema ( 2+ bilateral) Objective Data Labs 06/20/22 05:12 06/20/22 05:12 Labs: Laboratory Results - last 24 hr 06/20/22 06/20/22 06/20/22 05:12 05:12 05:14 WBC 50.6 H* RBC 2.30 L Hgb 6.7 L* Hct 19.7 L* D MCV 85.7 MCH 29.1 MCHC 34.0 RDW 15.1 Plt Count 260 D MPV 10.7 Immature Gran % (Auto) 2.8 H Neut % (Auto) 91.3 H Lymph % (Auto) 1.6 L [place] % (Auto) 4.1 Eos % (Auto) 0.0 Baso % (Auto) 0.2 Lymph # (Auto) 0.8 L [place] # (Auto) 2.1 H Eos # (Auto) 0.0 Baso # (Auto) 0.1 Abs Immat Gran (auto) 1.44 H Absolute Neuts (auto) 46.2 H Absolute Nucleated RBC 0.030 H Nucleated RBC % (auto) 0.1 Smear Tech's Comments VERIFIED VBG pH 7.31 L VBG pCO2 38 VBG pO2 48 VBG HCO3 20 L VBG O2 Saturation 72.0 VBG Base Excess -5.6 Sodium 118 L* Potassium 6.0 H* Chloride 83 L Carbon Dioxide 19 L Anion Gap 22 H BUN 96 H Creatinine 3.95 H Estim Creat Clear Calc 18.0 Estimated GFR 14 Random Glucose 257 H Calcium 6.6 L Phosphorus 6.6 H Magnesium 1.7 Albumin 2.1 L Blood Type Antibody Screen Crossmatch 06/20/22 06:18 WBC RBC Hgb Hct MCV MCH MCHC RDW Plt Count MPV Immature Gran % (Auto) Neut % (Auto) Lymph % (Auto) [place] % (Auto) Eos % (Auto) Baso % (Auto) Lymph # (Auto) [place] # (Auto) Eos # (Auto) Baso # (Auto) Abs Immat Gran (auto) Absolute Neuts (auto) Absolute Nucleated RBC Nucleated RBC % (auto) Smear Tech's Comments VBG pH VBG pCO2 VBG pO2 VBG HCO3 VBG O2 Saturation VBG Base Excess Sodium Potassium Chloride Carbon Dioxide Anion Gap BUN Creatinine Estim Creat Clear Calc Estimated GFR Random Glucose Calcium Phosphorus Magnesium Albumin Blood Type B Negative Antibody Screen NEGATIVE Crossmatch See Detail Microbiology Microbiology Results: Microbiology 06/06/22 14:48 Blood - Venous Blood Culture - Final No growth after 5 days. 06/06/22 13:55 Blood - Venous Blood Culture - Final No growth after 5 days. 06/06/22 17:59 Urine Catheterized - Cotton Catheter Urine Culture - Final Enterococcus faecalis Progress Note: A&P Assessment and plan (1) Acute renal failure: Status: Acute (2) Afib: Status: Acute (3) Respiratory failure with hypoxia: Status: Acute (4) ILD (interstitial lung disease): Status: Acute (5) Hyperkalemia: Status: Acute (6) Anemia: Status: Acute Plan Assessment: 87-year-old gentleman admitted with progressive hypoxemia secondary to exacerbation of underlying pulmonary fibrosis now requiring maximum ventilatory support Plan: Neuro: No acute issues. Cardiac: No evidence of sepsis, hypotension, leukocytosis, and end organ dysfunction is secondary to hypoxemia refractory to ventilatory support. Continue on vasopressor support. Pulmonary: Acute progressive hypoxemia refractory to maximum ventilatory support. Continue ventilatory support. Renal: acute renal failure secondary to intravascular volume depletion with hyperkalemia and metabolic acidosis worsening. Non oliguric. Continue to monitor renal indices and urine output. Endo: No acute issues. GI: No acute issues. ID: No acute issues Heme/Onc: No acute issues. Psych: No acute issues. Miscellaneous: Family is considering goals of care. Prophylaxis: Lovenox, famotidine Diet: nothing by mouth Critical care time spent: 45 minutes Quality Stroke Does the patient have a stroke diagnosis?: No VTE Prior VTE?: No VTE Risk Level:: Medical - moderate - high VTE Device Contraindication: Treatment Not Indicated VTE Drug Contraindication: N/A - Med Ordered
--- NOTE | 2022-06-20 12:32 | PM.CCN ---
Critical Care Event Note Summary Date of Service: 06/20/22 Code activated: No Narrative: Patient in do not resuscitate code status with a sudden drop in blood pressure, restarted on epinephrine drip, but with further change in cardiac rhythm to asystole. On exam, no spontaneous respirations, no cough, no gag, pupils fixed. Official time of 12:30p.m. Son/healthcare proxy notified. Critical Care Time (minutes): 0
--- NOTE | 2022-06-20 12:36 | PM.DDS ---
Discharge Sum: Prov Provider Primary care physician: Lewis Hanson MD Consults: 06/07/22 11:29 Consult to Pulmonology Routine Consulting Provider: [facility] [place] Reason for consultation: acute hypoxia in ILD 06/13/22 08:54 Consult to Infectious Diseases Routine Consulting Provider: Madison Knutson Reason for consultation: vre Has provider been notified: No 06/13/22 10:36 Consult to Infectious Diseases Routine Consulting Provider: Madison Knutson Reason for consultation: VRE Has provider been notified: No 06/13/22 13:55 Consult to Urology Routine Consulting Provider: Ed Ponce Reason for consultation: leaking joaquin Has provider been notified: No 06/13/22 15:05 Consult to Infectious Diseases Routine Consulting Provider: Madison Knutson Reason for consultation: vre Has provider been notified: Yes Pronouncing clinician: Chris Parker Discharge Sum: Diag Contributing Factors (1) Respiratory failure with hypoxia: (2) ILD (interstitial lung disease): (3) Acute renal failure: (4) Afib: (5) Hyperkalemia: (6) Anemia: Discharge Sum: Summary Date and Time Date of admission: 06/06/22 16:56 Date of : 06/20/22 Time of : 12:30 Summary Details: 87-year-old gentleman with underlying BPH, ILD/IPF admitted on 06/06/2022 with shortness of breath and hypoxia. Hospital course significant for progressive hypoxemia secondary to exacerbation underlying interstitial lung disease with no response to systemic glucocorticoids. Patient had empiric diuresis with initial improvement in his FiO2 requirements, however later his oxygen requirements again progressively increased and he was not able to sustain normal oxygenation on maximum support with high-flow and non-rebreather on 06/18/2022. At that time patient was transferred to intensive care unit and tried on noninvasive positive pressure ventilation, unfortunately to no avail requiring emergent intubation for refractory hypoxemia and initiation of ventilatory support. Unfortunately, patient still with borderline oxygenation despite maximum ventilatory support. Discussion about overall poor clinical prognosis held with patient's healthcare proxy / son and decision has been reached to switch code status to do not resuscitate and continue with care as is. over the course of last 24 hours patient with progressive organ dysfunction including renal failure with hyperkalemia. Around 12:00 on 06/20/2022 patient wiith a sudden drop in blood pressure, restarted on epinephrine drip, but with further change in cardiac rhythm to asystole.?Official time of 12:30p.m.? Additional Data Confirmation of as documented by pronouncing clinician: no pulse, no respirations, no heart sounds and pupils fixed and dilated Family: contacted Attending physician: Chris Parker MD
[2022-06-20 13:01] LABS: Alanine Aminotransferase 575 U/L (0-40); Albumin Level 2.1 g/dL (3.5-5.0); Alkaline Phosphatase 170 U/L (39-117); Aspartate Amino Transferase 774 U/L (5-37); Bilirubin Direct 1.5 mg/dL (0.0-0.5); Bilirubin Total 2.3 mg/dL (0.0-1.0)
[2022-06-20 13:06] LABS: B Type Natriuretic Peptide 1019 pg/mL (<100)
[2022-06-20 13:16] LABS: Troponin-I High Sensitivity 3030.5 ng/L (<3.5-35.0)
--- NOTE | 2022-06-20 20:33 | PC.NURSE ---
Patient rhythm noted to have widening QRS, MD made aware. Patient BP and MAP declining sharply, MD made aware. MD titrated Epinephrine GTT. Patient QRS continued to widen. Patient rhythm changed to asystole. MD pronounced time of 1230. [facility] called, case denied. Referral # [id number], call agent Ana. CASANOVA contacted by MD. Post mortem care preformed, [place] [facility] [place]
== END 2022-06-20 15:16 | disposition expired | DRG 871 ==
LOC: HO.ED 16:41 → HO.EDOVER 17:25 → HO.IMC 17:29 → HO.ICU 06-18 10:34
PROVIDERS: Hospitalist; Registered Nurse Community Health; Student in an Organized Health Care Education/Training Program; Admitting Provider Internal Medicine; Emergency Provider Emergency Medicine; PCP Internal Medicine; Visit Provider Internal Medicine Pulmonary Disease
DX: A41.9 Sepsis, unspecified organism (principal); J96.01 Acute respiratory failure with hypoxia; N39.0 Urinary tract infection, site not specified; Z16.21 Resistance to vancomycin; N17.9 Acute kidney failure, unspecified; Z66 Do not resuscitate; J84.10 Pulmonary fibrosis, unspecified; R68.0 Hypothermia, not associated with low environmental temperature; N40.1 Benign prostatic hyperplasia with lower urinary tract symptoms; N21.0 Calculus in bladder; R31.9 Hematuria, unspecified; T83.031A Leakage of indwelling urethral catheter, initial encounter; Y73.8 Miscellaneous gastroenterology and urology devices associated with adverse incidents, not elsewhere classified; R33.8 Other retention of urine; R65.20 Severe sepsis without septic shock; I10 Essential (primary) hypertension; B95.2 Enterococcus as the cause of diseases classified elsewhere; Z20.822 Contact with and (suspected) exposure to COVID-19; Z87.891 Personal history of nicotine dependence; Z79.899 Other long term (current) drug therapy
CPT/HCPCS: 36415; 36600; 71045; 71275; 80048; 80053; 80076; 80202; 81001; 82040; 82565; 82803; 83605; 83735; 83880; 84100; 84484; 85007; 85025; 85027; 86850; 86900; 86901; 86923; 87040; 87086; 87088; 87186; 87633; 87635; 93005; 93306; 93970; 94002; 94003; 97163; 99285; C1758; J0131; J0171; J0692; J1650; J1940; J2020; J2370; J2543; J2920; J2930; J3010; J3370; J3371; Q9957; Q9967